=== PATIENT | female | born 1950 | race Caucasian/White ===

== ENCOUNTER → 2019-09-07 08:37 | Outpatient (BNVA) | payer MEDICARE, OTHER, SELFPAY | PROVIDERS: Family Provider Nurse Practitioner; PCP Nurse Practitioner; Visit Provider Nurse Practitioner | DX: E03.8 Other specified hypothyroidism (principal); E55.9 Vitamin D deficiency, unspecified | CPT/HCPCS: 80053; 82306; 84443 ==

== ENCOUNTER → 2020-10-02 08:28 | Outpatient (BNVA) | payer MEDICARE, OTHER, SELFPAY | PROVIDERS: Family Provider Nurse Practitioner; PCP Nurse Practitioner; Visit Provider Nurse Practitioner | DX: E55.9 Vitamin D deficiency, unspecified (principal); E03.8 Other specified hypothyroidism | CPT/HCPCS: 80053; 82306; 84443 ==

== ENCOUNTER → 2021-04-24 14:16 | Outpatient (BNVA) | payer MEDICARE, OTHER, SELFPAY | PROVIDERS: Family Provider Nurse Practitioner; PCP Nurse Practitioner; Visit Provider Nurse Practitioner | DX: E03.8 Other specified hypothyroidism (principal); E55.9 Vitamin D deficiency, unspecified | CPT/HCPCS: 80053; 82306; 82607; 84439; 84443; 84481; 85025 ==

== ENCOUNTER → 2021-10-29 15:35 | Outpatient (BNVA) | payer MEDICARE, OTHER, SELFPAY | PROVIDERS: Family Provider Nurse Practitioner; PCP Nurse Practitioner; Visit Provider Nurse Practitioner | DX: E03.8 Other specified hypothyroidism (principal); E55.9 Vitamin D deficiency, unspecified; Z12.39 Encounter for other screening for malignant neoplasm of breast | CPT/HCPCS: 80053; 80061; 84439; 84443; 84481 ==

== ENCOUNTER → 2021-11-20 15:05 | Outpatient (BNVA) | payer MEDICARE, OTHER, SELFPAY | PROVIDERS: Family Provider Nurse Practitioner; PCP Nurse Practitioner; Visit Provider Nurse Practitioner Family | DX: R39.9 Unspecified symptoms and signs involving the genitourinary system (principal); B37.3 Candidiasis of vulva and vagina; N89.8 Other specified noninflammatory disorders of vagina; R31.9 Hematuria, unspecified | CPT/HCPCS: 81000 ==

== ENCOUNTER → 2021-11-29 11:50 | Outpatient (BNVA) | payer MEDICARE, OTHER, SELFPAY | PROVIDERS: Family Provider Nurse Practitioner; PCP Nurse Practitioner; Visit Provider Nurse Practitioner | DX: R39.9 Unspecified symptoms and signs involving the genitourinary system (principal); N95.0 Postmenopausal bleeding; Z12.4 Encounter for screening for malignant neoplasm of cervix | CPT/HCPCS: 88175 ==

== ENCOUNTER 2022-01-14 11:39 | Outpatient (CLI) | payer MEDICARE, OTHER, SELFPAY ==
--- NOTE | 2022-01-14 12:00 | US_ITS ---
WS: [id number] TRANSABDOMINAL PELVIC AND TRANSVAGINAL PELVIC ULTRASOUND HISTORY: N95.0 - Postmenopausal bleeding COMPARISON: None available. Uterus: 11.4 cm x 8.8 cm x 7.9 cm. Enlarged anteverted uterus. Uterus is enlarged and heterogeneous w ith areas of shadowing from calcification along the anterior uterus. There are multiple ill-defined h eterogeneous masses of increased and decreased echogenicity and increased vascularity. The largest ma ss which is ill-defined measures 4.9 x 3.9 x 4.2 cm. Large central calcification. It is difficult to determine if this is solely from the myometrium or does extend into the endometrium. Endometrium: 4.2 cm. Endometrium is abnormal with loss of the normal junctional zone. The heterogeneo us area with shadowing along the anterior myometrium cannot be from the endometrium. Neither ovary is identified. No free fluid. No adnexal mass. US/US pelvic with transvaginal IMPRESSION: 1. Markedly abnormal appearance to the uterus and endometrium. There is a larg e mixed area of heterogeneity with shadowing and calcification involving a larg e portion of the uterus. This is obscuring the endometrium. This all may be rel ated to fibroids with degenerating calcification. As the underlying endometrium is obscured and also appears normal abnormal endometrial neoplasm is not exclu ded. Recommend evaluation by SENIOR RD ENGINEER for possible surgical removal of the uterus. E ndometrial neoplasm is not excluded. 2. Neither ovary identified.
== END 2022-01-14 11:40 | disposition home or self-care (01) ==
LOC: RAD 11:40
PROVIDERS: Family Provider Nurse Practitioner; PCP Nurse Practitioner; Visit Provider Nurse Practitioner
DX: N95.0 Postmenopausal bleeding (principal)
CPT/HCPCS: 76830; 76856

== ENCOUNTER 2022-01-20 08:00 | Emergency (ER) | payer MEDICARE, OTHER, SELFPAY ==
[2022-01-20 08:30] VITALS: BP 137/75; PULSE 79; RESP 14; TEMP 38.7; O2SAT 97; BMI 26.5
[2022-01-20 08:34] VITALS: BP 132/68; PULSE 78; O2SAT 94
--- NOTE | 2022-01-20 08:38 | W.ED.FEVER ---
HPI - Fever General: Chief Complaint: Fever Stated Complaint: Fever, Sick to stomach, spotting Time Seen by Provider: 01/20/22 08:35 Source: patient Mode of arrival: ambulatory Limitations: no limitations History of Present Illness: 71-year-old female presents to the ER today for a fever x16 hours. Patient reports the fever started last night and has continued overnight and gone up. Patient reports she has mild nausea and also a headache. Patient reports minimal body aches. She reports no other symptoms. Patient denies any congestion or runny nose, sore throat, abdominal pain, change in bowel or bladder habits. Patient denies any pain with urination. Patient denies any sick contacts. Patient does report she took a home COVID test yesterday and it was negative. Patient reports she has an appointment with an YARROW GATHERER this for follow-up on an abnormal ultrasound. Patient reports she is still having vaginal bleeding but that has been going on and that is what the YARROW GATHERER will be addressing. Review of Systems General: Reports: 10 or more systems reviewed and unremarkable except in HPI and below PFSH ED PFSH: Medical History Adult onset hypothyroidism Heart murmur Mammogram normal 2014 Vitamin D deficiency Surgical History History of colonoscopy 2016 had colon tear and colon resection History of partial surgical removal of colon 2016 Family History Mother Hypertension Father Heart disease Myocardial infarction Social History Smoking and tobacco status: never smoked Second hand smoke exposure: No Smoking risk assessment/counseling performed?: No Alcohol intake: current Alcohol intake frequency: 0-2 Drinks per Day Desire information about alcohol rehabilitation?: No Counseling given: No Desire information about substance/drug rehabilitation?: No Counseling given: No Adopted: No Caregiver/support person: No Lives independently: Yes Household members: spouse Housing: House Marital status: Number of children: 2 service: No Current occupational status: retired Current occupational exposures/hazards: No History of recent travel: No Current gender identity: Female Physical Exam Const: COMMON NORMALS: no acute distress, average body habitus, patient oriented x3, no limitations, healthy appearing, alert and well nourished Eye: COMMON NORMALS: conjunctivae normal CONJUNCTIVA: Yes conjunctivae normal Neck/C-Spine: COMMON NORMALS: full ROM and no lymphadenopathy Resp: COMMON NORMALS: normal respiratory effort, No retractions and clear to auscultation bilaterally EFFORT & INSPECTION: Yes able to speak in complete sentences AUSCULTATION: clear to auscultation bilaterally Cardio: COMMON NORMALS: regular rate, regular rhythm and No murmurs present (Cardio) RATE: regular rate RHYTHM: regular rhythm GI: COMMON NORMALS: Normal to inspection, nondistended, normoactive bowel sounds present, Soft to palpation, non-tender and no masses PALPATION: Yes Soft to palpation : COMMON NORMALS: Yes no CVA tenderness BLADDER/KIDNEY EXAM: Yes no CVA tenderness Back/Pelvis: COMMON NORMALS: no CVA tenderness and thoraco-lumbar ROM normal Extremity: COMMON NORMALS: normal to inspection and full ROM Neuro: COMMON NORMALS: patient oriented x3 SENSORIUM/ORIENTATION: Yes alert Psych: COMMON NORMALS: mental status grossly normal, Normal thought process present and cooperative THOUGHT PROCESS: Normal thought process present Skin: COMMON NORMALS: no rashes or lesions noted and no wounds GENERAL SKIN EXAM: no rashes or lesions noted Course ED course: 71-year-old female presents to the ER today for a fever x16 hours. Patient reports the fever started last night and has continued overnight and is higher this morning. Patient reports a headache and mild nausea associated. She denies any congestion, runny nose, sore throat, abdominal pain, change in bowel or bladder habits. Patient denies any known sick contacts. Patient did take a home COVID test however we will repeat that today in the ER. We will do labs to try to determine a source of infection. Patient had an abnormal ultrasound done 6 days ago and is following up with YARROW GATHERER on . Patient does report continued vaginal bleeding however this will be addressed on . Vital Signs: Vital signs: Vital Signs Temperature 101.6 F H 01/20/22 08:30 Pulse Rate 73 01/20/22 10:17 Respiratory Rate 14 01/20/22 08:30 Blood Pressure 116/63 01/20/22 10:17 Pulse Oximetry 95 01/20/22 10:17 [facility] 08[facility]34 MDM - Fever Medical Decision Making 71-year-old female presents to the ER today for a fever x16 hours. Patient reports the fever started last night and has continued overnight and is higher this morning. Patient reports a headache and mild nausea associated. She denies any congestion, runny nose, sore throat, abdominal pain, change in bowel or bladder habits. Patient denies any known sick contacts. Patient did take a home COVID test however we will repeat that today in the ER. We will do labs to try to determine a source of infection. Patient had an abnormal ultrasound done 6 days ago and is following up with YARROW GATHERER on . Patient does report continued vaginal bleeding however this will be addressed on . Patient's CBC is normal. CMP is abnormal, specifically the alk phos level. This is likely due to the abnormal findings on patient's recent pelvic ultrasound. Patient has an appointment with YARROW GATHERER on where this will be addressed. Patient's UA is abnormal. There is noted to be significant blood, as expected for patient's vaginal issues, but also infection is noted. Patient is nitrate positive. We will do Rocephin in the ER today given patient's fever. We will send patient home on Cipro. Patient should push clear fluids at this time. Alternate Tylenol and Motrin for fevers. Follow-up with PCP in 3 to 5 days if no improvement. Return to the ER with new or worsening symptoms. Patient verbalized understanding and was in agreement with the treatment plan. Lab Data : 01/20/22 08:58 01/20/22 08:58 Laboratory Results WBC 9.1 10^3/uL (4.0-10.0) 01/20/22 08:58 RBC 4.57 10^6/uL (4.1-5.3) 01/20/22 08:58 Hgb 13.3 g/dL (11.5-15.3) 01/20/22 08:58 Hct 41.0 % (37.0-47.0) 01/20/22 08:58 MCV 89.7 fl (81-99) 01/20/22 08:58 MCH 29.1 pg (28.0-34.0) 01/20/22 08:58 MCHC 32.4 g/dL (30.0-36.0) 01/20/22 08:58 RDW 12.7 % (12.1-15.1) 01/20/22 08:58 Plt Count 186 10^3/cmm (130-400) 01/20/22 08:58 MPV 11.6 fL (7.4-10.4) H 01/20/22 08:58 Neut % (Auto) 74.3 % 01/20/22 08:58 Lymph % (Auto) 18.2 % 01/20/22 08:58 [place] % (Auto) 6.6 % 01/20/22 08:58 Eos % (Auto) 0.1 % 01/20/22 08:58 Baso % (Auto) 0.4 % 01/20/22 08:58 Neut # (Auto) 6.71 10^3/uL (1.8-7.7) 01/20/22 08:58 Lymph # (Auto) 1.7 10^3/uL (0.8-4.8) 01/20/22 08:58 [place] # (Auto) 0.6 10^3/uL (0.2-0.9) 01/20/22 08:58 Eos # (Auto) 0.0 10^3/uL (0.0-0.8) 01/20/22 08:58 Baso # (Auto) 0.0 10^3/uL (0.0-0.1) 01/20/22 08:58 Nucleated RBC % (auto) 0 % 01/20/22 08:58 Nucleated RBCs # 0.0 /100WBC 01/20/22 08:58 Sodium 138 mmol/L (136-145) 01/20/22 08:58 Potassium 3.6 mmol/L (3.5-5.1) 01/20/22 08:58 Chloride 97 mmol/L (98-107) L 01/20/22 08:58 Carbon Dioxide 26 mmol/L (22-29) 01/20/22 08:58 Anion Gap 18.6 (5-19) 01/20/22 08:58 BUN 28 mg/dL (8-23) H 01/20/22 08:58 Creatinine 0.6 mg/dL (0.5-0.9) 01/20/22 08:58 GFR Calculation Not Reportable 01/20/22 08:58 Glucose 131 mg/dL (65-115) H 01/20/22 08:58 Calculated Osmolality 293 mOsm/kg (285-295) 01/20/22 08:58 Lactic Acid 1.5 mmol/L (0.5-2.2) 01/20/22 08:58 Calcium 9.3 mg/dL (8.5-10.5) 01/20/22 08:58 Total Bilirubin 0.5 mg/dL (0.15-1.2) 01/20/22 08:58 AST 20 U/L (0-32) 01/20/22 08:58 ALT 15 U/L (0-33) 01/20/22 08:58 Alkaline Phosphatase 209 IU/L (35-105) H 01/20/22 08:58 Total Protein 7.5 g/dL (6.6-8.7) 01/20/22 08:58 Albumin 4.8 g/dL (3.5-5.2) 01/20/22 08:58 Globulin 2.7 g/dL (1.3-4.6) 01/20/22 08:58 Urine Color Yellow (Yellow) 01/20/22 08:58 Urine Appearance Cloudy (CLEAR) 01/20/22 08:58 Urine pH 5 (5-7) 01/20/22 08:58 Ur Specific [place] 1.025 (1.005-1.030) 01/20/22 08:58 Urine Protein 3+ (Negative) H 01/20/22 08:58 Urine Glucose (UA) Norm (Normal) 01/20/22 08:58 Urine Ketones 3+ (Negative) H 01/20/22 08:58 Urine Blood 3+ (Negative) H 01/20/22 08:58 Urine Nitrate Positive (Negative) H 01/20/22 08:58 Urine Bilirubin Neg (Negative) 01/20/22 08:58 Urine Urobilinogen Norm mg/dL (Negative) 01/20/22 08:58 Ur Leukocyte Esterase 1+ (Negative) H 01/20/22 08:58 Urine RBC Too numerous to cnt /hpf (0-2) H 01/20/22 08:58 Urine WBC 40-55 /hpf (0-5) H 01/20/22 08:58 Ur Squamous Epith Cells 0-4 /hpf (0-5) H 01/20/22 08:58 Amorphous Sediment Not Reportable 01/20/22 08:58 Urine Bacteria 2+ /hpf (NONE) H 01/20/22 08:58 Urine Mucus Trace /hpf 01/20/22 08:58 SARS-CoV-2 Ag (Rapid) Negative (Negative) 01/20/22 08:50 Critical Care Time Critical Care Time: Critical Care Time: No Discharge Plan Discharge Patient Disposition: Home Clinical Impression: Acute UTI, Abnormal uterine bleeding (AUB) Condition: Stable Prescriptions: New Cipro 250 mg tablet 250 mg PO BID 5 Days Qty: 10 0RF No Action cholecalciferol (vitamin D3) [Vitamin D3] 25 mcg (1,000 unit) tablet 5,000 unit PO DAILY thyroid (pork) [[place] Thyroid] 15 mg tablet 15 mg PO DAILY Qty: 90 1RF Discharge Orders: Discharge ED (Routine); Ordered 01/20/22 Ordered By: Marilee Jeff Referrals: Pavel Gupta, ENVIRONMENTAL RESEARCH SCIENTIST-C [Primary Care Provider] - Discharge Diet: Usual diet Discharge Activity: Resume usual activity Patient Instructions: Opioid Safety Activity Restrictions/Additional Instructions: Push fluids. Take Cipro as prescribed. Alternate Tylenol Motrin for pain and fever. Follow-up with PCP in 3 to 5 days if no improvement. Return to the ER with new or worsening symptoms. Coding Level of Care Code ED Health Information Director for Que Fwdavid Exam Comprehensive
[2022-01-20] MEDS: acetaminophen 500 mg Tablet 1000 MG PO (09:07)
[2022-01-20 09:08] LABS: Basophils % 0.4 %; Eosinophils % 0.1 %; Hemoglobin 13.3 g/dL (11.5-15.3); Lymphocytes # 1.7 10^3/uL (0.8-4.8); Lymphocytes % 18.2 %; Mean Corpuscular HGB Conc 32.4 g/dL (30.0-36.0); Mean Corpuscular Hemoglobin 29.1 pg (28.0-34.0); Mean Corpuscular Volume 89.7 fl (81-99); Mean Platelet Volume 11.6 fL (7.4-10.4); Monocytes # 0.6 10^3/uL (0.2-0.9); Monocytes % 6.6 %; Neutrophils # 6.71 10^3/uL (1.8-7.7); Neutrophils % 74.3 %; Nucleated Red Blood Cells % 0 %; Platelet Count 186 10^3/cmm (130-400); Red Blood Count 4.57 10^6/uL (4.1-5.3); Red Cell Distribution Width 12.7 % (12.1-15.1); White Blood Count 9.1 10^3/uL (4.0-10.0)
[2022-01-20 09:28] LABS: Lactic Sepsis W/Reflex 1.5 mmol/L (0.5-2.2)
[2022-01-20 09:30] LABS: Alanine Aminotransferase 15 U/L (0-33); Albumin Level 4.8 g/dL (3.5-5.2); Alkaline Phosphatase 209 IU/L (35-105); Anion Gap 18.6 (5-19); Aspartate Amino Transferase 20 U/L (0-32); Blood Urea Nitrogen 28 mg/dL (8-23); Calcium 9.3 mg/dL (8.5-10.5); Carbon Dioxide 26 mmol/L (22-29); Chloride 97 mmol/L (98-107); Globulin 2.7 g/dL (1.3-4.6); Glucose 131 mg/dL (65-115); Osmolality Calculated 293 mOsm/kg (285-295); Potassium 3.6 mmol/L (3.5-5.1); Sodium 138 mmol/L (136-145); Total Bilirubin 0.5 mg/dL (0.15-1.2); Total Protein 7.5 g/dL (6.6-8.7)
[2022-01-20 09:32] LABS: Add Urine Culture? Yes; Add Urine Microscopic? YES; Bacteria Urine 2+ /hpf; Bilirubin Urine Neg (Negative); Blood Urine 3+ (Negative); Glucose Urine UA Norm (Normal); Ketones Urine 3+ (Negative); Leukocyte Esterase Urine 1+ (Negative); Mucus Urine TRACE /hpf; Nitrate Urine Positive (Negative); Protein Urine 3+ (Negative); RBC Urine TOO NUMEROUS TO CNT /hpf (0-2); Specific Gravity, Urine 1.025 (1.005-1.030); Squamous Epithelial Cell Urine 0-4 /hpf (0-5); Urine Appearance Cloudy (CLEAR); Urine Color Yellow (Yellow); Urobilinogen Urine Norm (Negative); WBC Urine 40-55 /hpf (0-5); pH Urine 5 (5-7)
[2022-01-20 09:45] LABS: SARS Covid-2 Antigen Negative (Negative)
[2022-01-20] MEDS: cefTRIAXone 1,000 MG in lidocaine 1% 2.1 ML 2.1 MG IM (10:10)
[2022-01-20 10:17] VITALS: BP 116/63; PULSE 73; O2SAT 95
== END 2022-01-20 10:18 | disposition home or self-care (01) ==
PROVIDERS: Emergency Provider Physician Assistant; PCP Nurse Practitioner
DX: N39.0 Urinary tract infection, site not specified (principal); N93.9 Abnormal uterine and vaginal bleeding, unspecified; Z20.822 Contact with and (suspected) exposure to COVID-19
CPT/HCPCS: 80053; 81001; 83605; 85025; 87086; 87426; 96372; 99284; J0696

== ENCOUNTER 2022-01-22 11:56 | Inpatient (IN) | payer MEDICARE, OTHER, SELFPAY ==
[2022-01-22] VITALS (17 sets, daily range): BP systolic 112–152; BP diastolic 48–74; PULSE 64–82; RESP 14–25; TEMP 36.8–38.2; O2SAT 91–97; BMI 26.5; BMI 25.6
--- NOTE | 2022-01-22 12:02 | PC.NURSE ---
while in lobby pt is a&ox4. pt is in nad. pt and state that confusion has began 3 days ago. pt breathing is nonlabored. rate and rhythm are wnl.
[2022-01-22 13:53] LABS: Basophils % 0.3 %; Eosinophils % 0.3 %; Hematocrit 38.5 % (37.0-47.0); Hemoglobin 12.8 g/dL (11.5-15.3); Lymphocytes # 1.9 10^3/uL (0.8-4.8); Lymphocytes % 17.5 %; Mean Corpuscular HGB Conc 33.2 g/dL (30.0-36.0); Mean Corpuscular Hemoglobin 29.6 pg (28.0-34.0); Mean Corpuscular Volume 89.1 fl (81-99); Monocytes # 0.5 10^3/uL (0.2-0.9); Monocytes % 4.4 %; Neutrophils # 8.26 10^3/uL (1.8-7.7); Neutrophils % 77.1 %; Nucleated Red Blood Cells % 0 %; Platelet Count 196 10^3/cmm (130-400); Red Blood Count 4.32 10^6/uL (4.1-5.3); Red Cell Distribution Width 12.1 % (12.1-15.1); White Blood Count 10.7 10^3/uL (4.0-10.0)
[2022-01-22 14:13] LABS: SARS Covid-2 Antigen Negative (Negative)
[2022-01-22 14:14] LABS: Alanine Aminotransferase 15 U/L (0-33); Albumin Level 4.2 g/dL (3.5-5.2); Alkaline Phosphatase 168 IU/L (35-105); Anion Gap 18.4 (5-19); Aspartate Amino Transferase 20 U/L (0-32); Blood Urea Nitrogen 20 mg/dL (8-23); Carbon Dioxide 23 mmol/L (22-29); Chloride 92 mmol/L (98-107); Globulin 2.7 g/dL (1.3-4.6); Glucose 114 mg/dL (65-115); Lipase 30 U/L (13-60); Osmolality Calculated 273 mOsm/kg (285-295); Potassium 3.4 mmol/L (3.5-5.1); Sodium 130 mmol/L (136-145); Total Bilirubin 0.4 mg/dL (0.15-1.2); Total Protein 6.9 g/dL (6.6-8.7)
--- NOTE | 2022-01-22 18:05 | W.ED.AMS ---
HPI - Altered Mental Status General: Chief Complaint: Altered Mental Status Stated Complaint: weakness, cant form words Time Seen by Provider: 01/22/22 16:26 Source: patient Mode of arrival: ambulatory Limitations: no limitations History of Present Illness: 71-year-old female recently diagnosed with UTI. She was started on Cipro. Despite this she continues to run fever and she is had increasing confusion with suprapubic discomfort and CVA tenderness. No vomiting or diarrhea. Patient herself admits she is having difficult time with tracking things and has been moderately confused. Cultures at this point shows multiple debbi nothing specific. Onset (ago): day(s) Severity: mild Associated symptoms: Deny auditory hallucinations, visual hallucinations, delusions, depression or homicidal ideation Review of Systems Const: Denies: fever(s), chills, body aches, change in appetite, fatigue or malaise ENMT: Denies: throat pain, ear or mastoid pain, nasal discharge or nasal congestion Card: Denies: chest pain, edema, dyspnea on exertion or orthopnea Resp: Denies: dyspnea, productive cough or non-productive cough GI: Denies: abdominal pain, nausea, vomiting, hematemesis, coffee ground emesis, diarrhea, constipation, bloating, hematochezia or melena : Denies: flank pain, difficulty voiding, dysuria, urinary frequency or urinary urgency Skin/Breast: Denies: rash or pruritus Psych: Denies: depression, visual hallucinations, auditory hallucinations or homicidal ideation [facility] ED PFSH: Medical History Adult onset hypothyroidism Heart murmur Mammogram normal 2015 Uterine fibroid Vitamin D deficiency Surgical History History of colonoscopy 2016 had colon tear and colon resection History of partial surgical removal of colon 2016 Family History Mother Hypertension Father Heart disease Myocardial infarction Social History Smoking and tobacco status: never smoked Second hand smoke exposure: No Smoking risk assessment/counseling performed?: No Alcohol intake: current Alcohol intake frequency: 0-2 Drinks per Day Desire information about alcohol rehabilitation?: No Counseling given: No Desire information about substance/drug rehabilitation?: No Counseling given: No Adopted: No Caregiver/support person: No Lives independently: Yes Household members: spouse Housing: House Marital status: Number of children: 2 service: No Current occupational status: retired Current occupational exposures/hazards: No History of recent travel: No Current gender identity: Female Physical Exam Const: GENERAL APPEARANCE: cooperative and comfortable ORIENTATION/CONSCIOUSNESS: Yes awake HENMT: COMMON NORMALS: normocephalic, atraumatic and hearing grossly normal bilaterally HEAD & SCALP: normocephalic and atraumatic MOUTH: Normal oral and palatal mucosa present, lip normal, tongue normal and moist mucous membranes abnormal THROAT: posterior oropharynx normal Eye: COMMON NORMALS: Equal, round and reactive pupils present, EOMs intact bilaterally, conjunctivae normal and no scleral icterus CONJUNCTIVA: Yes conjunctivae normal PUPIL: Yes Equal, round and reactive pupils present Neck/C-Spine: COMMON NORMALS: full ROM and no lymphadenopathy Lymph: LYMPHATIC: no lymphadenopathy noted Resp: COMMON NORMALS: normal respiratory effort, No retractions, No use of accessory muscles and clear to auscultation bilaterally AUSCULTATION: clear to auscultation bilaterally Cardio: COMMON NORMALS: No murmurs present (Cardio) RATE: tachycardic GI: COMMON NORMALS: Soft to palpation and No hepatosplenomegaly present AUSCULTATION: Yes normoactive bowel sounds PALPATION: Yes Soft to palpation, No Tenderness to palpation present (GI), No Guarding due to palpation present (GI) and Yes No hepatosplenomegaly present : BLADDER/KIDNEY EXAM: Yes CVA tenderness Back/Pelvis: GENERAL BACK: Yes CVA tenderness Psych: THOUGHT CONTENT: No delusions Course Vital Signs: Vital signs: Vital Signs Temperature 99.3 F 02/02/22 21:50 Pulse Rate 74 02/02/22 21:50 Respiratory Rate 16 02/02/22 21:50 Blood Pressure 111/63 02/02/22 21:50 Pulse Oximetry 93 02/02/22 21:50 Oxygen Delivery Me thod 02/02/22 20:15 Oxygen Flow Rate 4 02/02/22 20:00 MDM - Altered Mental Status Medical Decision Making Patient mildly confused and is not improving with ciprofloxacin as prescribed. She is actually worsening a little bit although her white count is normal she has more flank pain. She has a pending gynecologic examination. CT of the abdomen pelvis ordered renal scan to evaluate for obstructive neuropathy uropathy. He has been able to continue to urinate. Discussed with hospitalist will admit start Primaxin Medical Records I reviewed the patient's medical records. Lab Data I reviewed the patient's lab results. : 02/01/22 11:54 02/01/22 11:54 Radiology Impressions Abdomen/Pelvis CT 01/22/22 18:06 IMPRESSION: 1. Colonic diverticulosis without CT evidence of diverticulitis. 2. Previous distal colon resection with rectosigmoid anastomosis. 3. Prominent uterus containing partially calcified uterine fibroid or uterine mass measuring at least 7.2cm. 4. Retroperitoneal lymphadenopathy including 1.8 x 1.9 cm aortocaval lymph node. 5. Multiple bilateral noncalcified pulmonary nodules including 12 mm posterior right lower lobe nodule. Differential diagnosis includes inflammatory nodules or noncalcified granulomas versus metastatic disease. For patients at low risk (minimal or absent history of smoking and of other known risk factors), recommend CT Chest at 3-6 months, then consider CT Chest at 18-24 months. For patients at high risk (history of smoking or of other known risk factors), recommend CT Chest at 3-6 months, then CT Chest at 18-24 months (Reference: [place]). If patient has known history of cancer then Fleischner guidelines are not applicable. Follow-up per the patient's medical condition. COMMENTS: Consistent with the [place] [employer]'s Incidental Findings Committee white paper (J Am Elda Radiol 2018): Any incidental renal lesion less than 1 cm or classified as too small to characterize, or any incidental cystic renal lesion characterized as simple-appearing, is likely benign. No follow-up imaging is recommended for these lesions per consensus recommendations based on imaging criteria. REFERENCES: Joel Ko, et al. Guidelines for Management of Incidental Pulmonary Nodules Detected on CT Images: From the Fleischner Society 2017. Radiology. 2017;284(1):228-243. Head CT 01/25/22 16:52 Impression: Negative CT scan of the head Gallbladder Ultrasound 01/26/22 18:41 IMPRESSION: No acute sonographic findings. Chest X-Ray 01/28/22 12:52 IMPRESSION: 1. Mild cardiomegaly and pulmonary vascular congestion. 2. Trace left pleural effusion suspected. 3. Minimal bilateral hilar to lower lobe atelectasis versus minimal infiltrate. Lumbar Puncture Fluoroscopy 01/28/22 12:52 IMPRESSION: Uncomplicated lumbar puncture for CSF. CSF collected for analysis as requested. Chest CT 01/28/22 12:56 IMPRESSION: 1. Several prominent subcentimeter short axis mediastinal lymph nodes, nonspecific. 2. Multifocal pulmonary nodules throughout both lung [place] measuring up to 6.1 mm, concerning for diffuse metastatic disease. 3. Trace bilateral pleural effusions. Head MRI 01/29/22 10:27 IMPRESSION: 1. No evidence of restricted diffusion to suggest acute ischemia. 2. Mild small vessel changes with mild parenchymal volume loss. 3. No abnormal gadolinium enhancement. No evidence of enhancing intracranial metastatic disease. 4. No acute intracranial findings. Head/Neck CTA 01/30/22 11:42 IMPRESSION: No large vessel stenosis or occlusion. IMPRESSION: No stenosis or occlusion of the neck arteries. Multiple nodules in the visualized the upper lungs. Please refer to CT chest of the same date for details. REFERENCES: NASCET CRITERIA. The degree of internal carotid artery stenosis is based on NASCET criteria. Normal is no stenosis. Mild is less than 50% stenosis. Moderate is 50-69% stenosis. Severe is 70% to 99% stenosis. Total occlusion is no detectable patent lumen. Laboratory Results WBC 7.1 10^3/uL (4.0-10.0) 01/23/22 05:49 RBC 3.81 10^6/uL (4.1-5.3) L 01/23/22 05:49 Hgb 11.2 g/dL (11.5-15.3) L 01/23/22 05:49 Hct 34.1 % (37.0-47.0) L 01/23/22 05:49 MCV 89.5 fl (81-99) 01/23/22 05:49 MCH 29.4 pg (28.0-34.0) 01/23/22 05:49 MCHC 32.8 g/dL (30.0-36.0) 01/23/22 05:49 RDW 12.3 % (12.1-15.1) 01/23/22 05:49 Plt Count 157 10^3/cmm (130-400) 01/23/22 05:49 MPV 11.7 fL (7.4-10.4) H 01/23/22 05:49 Neut % (Auto) 61.1 % 01/23/22 05:49 Lymph % (Auto) 24.5 % 01/23/22 05:49 [place] % (Auto) 13.2 % 01/23/22 05:49 Eos % (Auto) 0.3 % 01/23/22 05:49 Baso % (Auto) 0.6 % 01/23/22 05:49 Neut # (Auto) 4.37 10^3/uL (1.8-7.7) 01/23/22 05:49 Lymph # (Auto) 1.8 10^3/uL (0.8-4.8) 01/23/22 05:49 [place] # (Auto) 0.9 10^3/uL (0.2-0.9) 01/23/22 05:49 Eos # (Auto) 0.0 10^3/uL (0.0-0.8) 01/23/22 05:49 Baso # (Auto) 0.0 10^3/uL (0.0-0.1) 01/23/22 05:49 Nucleated RBC % (auto) 0 % 01/23/22 05:49 Nucleated RBCs # 0.0 /100WBC 01/23/22 05:49 Sodium 131 mmol/L (136-145) L 01/23/22 05:49 Potassium 3.6 mmol/L (3.5-5.1) 01/23/22 05:49 Chloride 98 mmol/L (98-107) 01/23/22 05:49 Carbon Dioxide 24 mmol/L (22-29) 01/23/22 05:49 Anion Gap 12.6 (5-19) 01/23/22 05:49 BUN 16 mg/dL (8-23) 01/23/22 05:49 Creatinine 0.4 mg/dL (0.5-0.9) L 01/23/22 05:49 GFR Calculation Not Reportable 01/23/22 05:49 Glucose 141 mg/dL (65-115) H 01/23/22 05:49 Calculated Osmolality 276 mOsm/kg (285-295) L 01/23/22 05:49 Calcium 8.1 mg/dL (8.5-10.5) L 01/23/22 05:49 Magnesium 2.1 mg/dL (1.7-2.3) 01/23/22 05:49 Total Bilirubin 0.4 mg/dL (0.15-1.2) 01/23/22 05:49 AST 22 U/L (0-32) 01/23/22 05:49 ALT 12 U/L (0-33) 01/23/22 05:49 Alkaline Phosphatase 135 IU/L (35-105) H 01/23/22 05:49 Total Protein 5.9 g/dL (6.6-8.7) L 01/23/22 05:49 Albumin 3.7 g/dL (3.5-5.2) 01/23/22 05:49 Globulin 2.2 g/dL (1.3-4.6) 01/23/22 05:49 Lipase 30 U/L (13-60) 01/22/22 13:41 Urine Color Yellow (Yellow) 01/22/22 18:35 Urine Appearance Clear (CLEAR) 01/22/22 18:35 Urine pH 5 (5-7) 01/22/22 18:35 Ur Specific [place] 1.025 (1.005-1.030) 01/22/22 18:35 Urine Protein Neg (Negative) 01/22/22 18:35 Urine Glucose (UA) Norm (Normal) 01/22/22 18:35 Urine Ketones 2+ (Negative) H 01/22/22 18:35 Urine Blood 3+ (Negative) H 01/22/22 18:35 Urine Nitrate Negative (Negative) 01/22/22 18:35 Urine Bilirubin Neg (Negative) 01/22/22 18:35 Urine Urobilinogen Norm mg/dL (Negative) 01/22/22 18:35 Ur Leukocyte Esterase Negative (Negative) 01/22/22 18:35 Urine RBC 15-25 /hpf (0-2) H 01/22/22 18:35 Urine WBC 0-4 /hpf (0-5) H 01/22/22 18:35 Ur Squamous Epith Cells 0-4 /hpf (0-5) H 01/22/22 18:35 Amorphous Sediment Not Reportable 01/22/22 18:35 Urine Bacteria Trace /hpf (NONE) 01/22/22 18:35 Urine Mucus 3+ /hpf 01/22/22 18:35 SARS-CoV-2 Ag (Rapid) Negative (Negative) 01/22/22 13:41 Discharge Plan Discharge Patient Disposition: Admitted As Inpatient Admit Provider: Dayne Woodward Clinical Impression: Cystitis, Uterine mass, Retroperitoneal lymphadenopathy, Metabolic encephalopathy, Abnormal uterine bleeding Condition: Stable Coding Level of Care Code ED [employer] Press Operator for Que [place]
--- NOTE | 2022-01-22 18:06 | CTR_ITS ---
PROCEDURE INFORMATION: Exam: CT Abdomen And Pelvis Without Contrast Exam date and time: 01/22/2022 7:20 PM Age: 71 years old Clinical indication: Abdominal pain; Prior surgery; Surgery date: 6+ months; Surgery type: 12 inches of colon removed--- due to diverticulitis; Additional info: Flank pain TECHNIQUE: Imaging protocol: Computed tomography of the abdomen and pelvis without contrast. Radiation optimization: All CT scans at this facility use at least one of these dose optimization techniques: automated exposure control; mA and/or kV adjustment per patient size (includes targeted exams where dose is matched to clinical indication); or iterative reconstruction. COMPARISON: US pelvic with transvaginal 01/14/2022 11:57 AM RADIATION DOSE METRICS: Total DLP (mGy-cm): 424.73 FINDINGS: Lungs: Multiple bilateral noncalcified pulmonary nodules including 12 mm posterior right lower lobe nodule. Liver: No acute abnormality on noncontrast imaging. Gallbladder and bile ducts: No acute abnormality. No calcified stones. No ductal dilation. Pancreas: No acute abnormality. No ductal dilation. Spleen: No acute abnormality. Adrenal glands: No acute abnormality. No mass. Kidneys and ureters: A couple incidental small simple appearing right renal cysts measuring up to 2 cm. No renal or ureteral calculi. No hydronephrosis or hydroureter. No renal or ureteral calculi. Stomach and bowel: No significant or disproportionate large or small bowel distention. Colonic diverticulosis without CT evidence of diverticulitis. Previous distal colon resection with rectosigmoid anastomosis. Appendix: Appendix is absent with tiny pericecal metallic clips. Intraperitoneal space: No significant fluid collection. No free air. Vasculature: Atherosclerotic vascular calcification. No aortic aneurysm. Lymph nodes: Retroperitoneal lymphadenopathy including 1.8 x 1.9 cm aortocaval lymph node. Urinary bladder: Nondistended decompressed urinary bladder. Reproductive: Prominent uterus containing partially calcified uterine fibroid or uterine mass measuring at least 7.2cm. Bones/joints: No acute osseous abnormality. No dislocation. Soft tissues: Small fat containing umbilical hernia. CT/CT kidney stone [id number] IMPRESSION: 1. Colonic diverticulosis without CT evidence of diverticulitis. 2. Previous distal colon resection with rectosigmoid anastomosis. 3. Prominent uterus containing partially calcified uterine fibroid or uterine mass measuring at least 7.2cm. 4. Retroperitoneal lymphadenopathy including 1.8 x 1.9 cm aortocaval lymph node. 5. Multiple bilateral noncalcified pulmonary nodules including 12 mm posterior right lower lobe nodule. Differential diagnosis includes inflammatory nodules or noncalcified granulomas versus metastatic disease. For patients at low risk (minimal or absent history of smoking and of other known risk factors), recommend CT Chest at 3-6 months, then consider CT Chest at 18-24 months. For patients at high risk (history of smoking or of other known risk factors), recommend CT Chest at 3-6 months, then CT Chest at 18-24 months (Reference: Joel). If patient has known history of cancer then Fleischner guidelines are not applicable. Follow-up per the patient's medical condition. COMMENTS: Consistent with the [employer]'s Incidental Findings Committee white paper (J Am Elda Radiol 2018): Any incidental renal lesion less than 1 cm or classified as too small to characterize, or any incidental cystic renal lesion characterized as simple-appearing, is likely benign. No follow-up imaging is recommended for these lesions per consensus recommendations based on imaging criteria. REFERENCES: Joel Ko, et al. Guidelines for Management of Incidental Pulmonary Nodules Detected on CT Images: From the Fleischner Society 2017. Radiology. 2017;284(1):228-243.
[2022-01-22] MEDS: cefTRIAXone 1,000 MG in sodium chloride 0.9% (plus) 50 ML 100 MG IV (19:00)
[2022-01-22] MEDS: fentaNYL 50 mcg/mL INJ 2mL IVP ×2 (19:03→22:39)
[2022-01-22] MEDS: acetaminophen 500 mg Tablet 1000 MG PO (19:04)
[2022-01-22 19:10] LABS: Bilirubin Urine Neg (Negative); Blood Urine 3+ (Negative); Glucose Urine UA Norm (Normal); Ketones Urine 2+ (Negative); Leukocyte Esterase Urine Negative (Negative); Nitrate Urine Negative (Negative); Protein Urine Neg (Negative); Specific Gravity, Urine 1.025 (1.005-1.030); Urine Appearance Clear (CLEAR); Urine Color Yellow (Yellow); Urobilinogen Urine Norm (Negative); pH Urine 5 (5-7)
[2022-01-22 19:11] LABS: Add Urine Culture? No; Add Urine Microscopic? YES; Bacteria Urine TRACE /hpf; Mucus Urine 3+ /hpf; RBC Urine 15-25 /hpf (0-2); Squamous Epithelial Cell Urine 0-4 /hpf (0-5); WBC Urine 0-4 /hpf (0-5)
--- NOTE | 2022-01-22 20:09 | P.HP_ITS ---
Providers/Chief Complaint Primary Care Provider: RELL Godoy Chief Complaint: weakness, cant form words History of Present Illness Pleasant 71-year-old lady returns after earlier visit to ER on Friday night at which time was diagnosed with urinary tract infection, started on ciprofloxacin, but has had persistent symptoms with lower abdominal discomfort, flank discomfort, urinary frequency, in ER noted with low-grade fever, 100.7, cytosis 10.7. UA with 15-25 RBC, 0-4 WBC, trace bacteria, with concern for ongoing urinary tract infection despite treatment with ciprofloxacin, possible complicated infection she is assessed with CT abdomen pelvis, results are pending. Antibiotic was broadened with Primaxin in ER. She also reports history of fibroids for which she is supposed to be seeing gynecology here on . Reports episodes of vaginal bleeding. Review of Systems Const: Reports: fever(s) and malaise; Denies: chills or body aches Eyes: Denies: change in vision, eye discomfort or eye redness ENMT: Denies: throat pain, oral sores or ear or mastoid pain Card: Denies: chest pain, edema, pre-syncope or dyspnea on exertion Resp: Denies: dyspnea, productive cough, change in phlegm color or hemoptysis GI: Reports: abdominal pain; Denies: nausea, vomiting, diarrhea, constipation, hematochezia or melena : Reports: flank pain and urinary frequency; Denies: hematuria Musc: Denies: back pain, joint swelling or joint redness Skin/Breast: Denies: rash or new lesions Neuro: Denies: headache(s), numbness in extremities, weakness in extremities, dizziness, confusion or seizure-like activity Endo: Denies: polyuria or polydipsia Bryan/Lymph: Denies: easy bleeding or tender lymph nodes All/Imm: Denies: urticaria or tongue swelling Medications/Allergies Home Medications Medication Instructions Recorded Confirmed Last Taken Type cholecalciferol (vitamin D3) 25 5,000 unit PO DAILY 09/07/19 01/22/22 01/22/22 History mcg (1,000 unit) tablet (Vitamin D3) thyroid (pork) 15 mg tablet 15 mg PO DAILY #90 tabs 10/29/21 01/22/22 01/22/22 Rx ([place] Thyroid) ciprofloxacin HCl 250 mg tablet 250 mg PO BID 5 days #10 tabs 07/31/22 08/02/22 08/02/22 Rx (Cipro) Whole Food Multi Vitamin Liq. 30 ml PO DAILY 01/22/22 01/22/22 01/22/22 History Allergies Allergy/AdvReac Type Severity Reaction Status Date / Time Penicillins Allergy Rash Verified 01/22/22 17:30 PFSH Acute PFSH: Medical History Adult onset hypothyroidism Heart murmur Mammogram normal 2014 Uterine fibroid Vitamin D deficiency Surgical History History of colonoscopy 2016 had colon tear and colon resection History of partial surgical removal of colon 2016 Family History Mother Hypertension Father Heart disease Myocardial infarction Social History Smoking and tobacco status: never smoked Second hand smoke exposure: No Smoking risk assessment/counseling performed?: No Alcohol intake: current Alcohol intake frequency: 0-2 Drinks per Day Desire information about alcohol rehabilitation?: No Counseling given: No Desire information about substance/drug rehabilitation?: No Counseling given: No Adopted: No Caregiver/support person: No Lives independently: Yes Household members: spouse Housing: House Marital status: Number of children: 2 service: No Current occupational status: retired Current occupational exposures/hazards: No History of recent travel: No Current gender identity: Female Vitals/I&O/Wt Last Vital Signs Temp 100.7 F H 01/22/22 12:24 Pulse 79 01/22/22 19:00 Resp 16 01/22/22 19:03 BP 152/66 01/22/22 19:00 Pulse Ox 96 01/22/22 19:00 Weight last 48 hrs Weight 65.771 kg Physical Exam Narrative: accompanies her at bedside Const: COMMON NORMALS: patient oriented x3 and alert GENERAL APPEARANCE: cooperative ORIENTATION/CONSCIOUSNESS: Yes awake HENMT: COMMON NORMALS: oropharynx normal Neck/C-Spine: COMMON NORMALS: no JVD Resp: COMMON NORMALS: normal respiratory effort and clear to auscultation bilaterally AUSCULTATION: clear to auscultation bilaterally Cardio: COMMON NORMALS: no JVD, regular rhythm, S1 normal heart sound present, S2 normal heart sound present and No murmurs present (Cardio) RHYTHM: regular rhythm HEART SOUNDS: S1 normal heart sound present and S2 normal heart sound present GI: COMMON NORMALS: Normal to inspection, nondistended, normoactive bowel sounds present and Soft to palpation PALPATION: Yes Soft to palpation and Yes Tenderness to palpation present (GI) Details: LLQ : OTHER: L CVA tenderness Extremity: COMMON NORMALS: no joint enlargement and no pedal edema Neuro: COMMON NORMALS: patient oriented x3 and moves all extremities SENSORIUM/ORIENTATION: Yes alert Skin: COMMON NORMALS: no rashes or lesions noted GENERAL SKIN EXAM: no rashes or lesions noted Data : 01/22/22 13:41 01/22/22 13:41 Micro: Microbiology 01/22/22 17:31 Blood Culture - Preliminary Blood SPECIMEN COLLECTED 01/22/22 17:34 Blood Culture - Preliminary Blood SPECIMEN COLLECTED A&P Assessment and plan (1) Acute UTI: Antibiotic broadened to Primaxin due to lack response to ciprofloxacin. Continue. CT abdomen pelvis is pending for possible obstructive uropathy/complicated UTI, or other intra-abdominal issues. Follow-up blood culture, urine culture. Status: Acute (2) Abnormal uterine bleeding (AUB): Pending outpatient gynecologic evaluation. Status: Acute Plan Hypokalemia: Replace. Check magnesium. Uterine fibroids Hypothyroidism Attestations Medical Necessity Statement*: Place in observation for assessment of management of nonresolving urinary tract infection despite outpatient treatment. Coding Level of Care Code Acute Nougat Cutter Machine for [facility] Fwd Diagnoses Acute UTI N39.0 Abnormal uterine bleeding (AUB) N93.9
[2022-01-22] MEDS: potassium chloride ER 20 mEq Tablet PO (23:34)
[2022-01-22] MEDS: sodium chloride 0.9% 1,000 ML 999 ML IV (23:34)
[2022-01-23] VITALS (7 sets, daily range): BP systolic 129–181; BP diastolic 66–84; PULSE 61–84; RESP 16–19; TEMP 36.4–37.8; O2SAT 91–96
[2022-01-23] MEDS: D5-NS 0.45% + KCL 20 mEq 20 MEQ/1,000 ML BAG 150 MEQ IV ×3 (02:27→21:14)
[2022-01-23] MEDS: acetaminophen 325 mg Tablet 650 MG PO ×2 (03:45→16:54)
--- NOTE | 2022-01-23 04:38 | PC.NURSE ---
i reported high temp 100.1 to nurse
[2022-01-23 06:03] LABS: Basophils % 0.6 %; Eosinophils % 0.3 %; Hematocrit 34.1 % (37.0-47.0); Hemoglobin 11.2 g/dL (11.5-15.3); Lymphocytes # 1.8 10^3/uL (0.8-4.8); Lymphocytes % 24.5 %; Mean Corpuscular HGB Conc 32.8 g/dL (30.0-36.0); Mean Corpuscular Hemoglobin 29.4 pg (28.0-34.0); Mean Corpuscular Volume 89.5 fl (81-99); Mean Platelet Volume 11.7 fL (7.4-10.4); Monocytes # 0.9 10^3/uL (0.2-0.9); Monocytes % 13.2 %; Neutrophils # 4.37 10^3/uL (1.8-7.7); Neutrophils % 61.1 %; Nucleated Red Blood Cells % 0 %; Platelet Count 157 10^3/cmm (130-400); Red Blood Count 3.81 10^6/uL (4.1-5.3); Red Cell Distribution Width 12.3 % (12.1-15.1); White Blood Count 7.1 10^3/uL (4.0-10.0)
[2022-01-23 06:41] LABS: Alanine Aminotransferase 12 U/L (0-33); Albumin Level 3.7 g/dL (3.5-5.2); Alkaline Phosphatase 135 IU/L (35-105); Blood Urea Nitrogen 16 mg/dL (8-23); Calcium 8.1 mg/dL (8.5-10.5); Carbon Dioxide 24 mmol/L (22-29); Chloride 98 mmol/L (98-107); Globulin 2.2 g/dL (1.3-4.6); Glucose 141 mg/dL (65-115); Magnesium 2.1 mg/dL (1.7-2.3); Osmolality Calculated 276 mOsm/kg (285-295); Sodium 131 mmol/L (136-145); Total Bilirubin 0.4 mg/dL (0.15-1.2); Total Protein 5.9 g/dL (6.6-8.7)
[2022-01-23 06:42] LABS: Anion Gap 12.6 (5-19); Aspartate Amino Transferase 22 U/L (0-32); Potassium 3.6 mmol/L (3.5-5.1)
[2022-01-23] MEDS: thyroid 60 mg Tablet 15 MG PO (09:13)
--- NOTE | 2022-01-23 10:30 | PC.CHAP ---
Pastoral Care Encounter/Spiritual Assessment Type of Contact [] Declined mental health orderly visit [] Patient/Family/Request visit [] Outpatient visit [] Follow-up visit [] Physician referral [] Code/Alert [x] Routine visit [] Staff referral [] Actively dying [] Patient sleeping [] Family support [] [] Out of room [] Palliative care [] [] Receiving care in room [] Pre-surgical visit [] Trauma [] Long length of stay [] ICU visit [] Other: Relational/Emotional Strength [x] Patient feels connected with others/family/visitors/staff [] Distress [] Loneliness/isolation [] Abandonment Spirituality of Patient x[] Person of Alanis [] Attends Shinto of their Alanis [x] Believes in Prayer [] Reads Bible or Muslim materials [] There are Spiritual issues to be addressed Shovel Operator Interventions x[] Prayer [x] Active listening [] Non-anxious presence [x] Spiritual/emotional support [] Crisis/trauma care [] Spiritual counseling [] Bereavement support [] Provided bereavement packet [] Provided Bible/devotional materials [] Provided toy/stuffed animal, coloring book to patient or family member [] Provided Communion [] Anointing/[place] [] Salvation [] Completed spiritual assessment [] Other: Impact on Illness or Injury [] Angry [] Fearful [] Anxious [] Often cries [] Exhaustion [] Unable to work [] Unable to attend baptist [] Unable to walk/stand [] Unable to read [] Unable to drive [] Unable to eat/drink [] Unable to sleep [] Unable to be with family [] Patient intubated [] Other: Summary Time spent with patient 10 min
--- NOTE | 2022-01-23 22:05 | PM.PN ---
Subjective Subjective: She is feeling close to the same, slightly better, still some tenderness in the lower abdomen which persists. Consideration was given to return home in case of no further fevers, however, during the day noted to have again some mild on and off confusion, although fevers have not returned. Due this concern did not feel ready to return home. Vitals/I&O/Wt Last Vital Signs Temp 98.0 F 01/23/22 19:58 Pulse 82 01/23/22 19:58 Resp 18 01/23/22 19:58 BP 152/77 01/23/22 19:58 Pulse Ox 96 01/23/22 19:58 O2 Del Method 01/22/22 23:12 01/23/22 01/23/22 01/23/22 06:59 14:59 22:59 Intake Total 1200 / 1200 1118 / 1118 1005 / 2123 Balance 1200 / 1200 1118 / 1118 1005 / 2123 Weight last 48 hrs Weight 63.616 kg Weight 65.771 kg Physical Exam Narrative: and son at bedside Const: COMMON NORMALS: patient oriented x3 and alert GENERAL APPEARANCE: cooperative ORIENTATION/CONSCIOUSNESS: Yes awake HENMT: COMMON NORMALS: oropharynx normal Neck/C-Spine: COMMON NORMALS: no JVD Resp: COMMON NORMALS: normal respiratory effort and clear to auscultation bilaterally AUSCULTATION: clear to auscultation bilaterally Cardio: COMMON NORMALS: no JVD, regular rhythm, S1 normal heart sound present, S2 normal heart sound present and No murmurs present (Cardio) RHYTHM: regular rhythm HEART SOUNDS: S1 normal heart sound present and S2 normal heart sound present GI: COMMON NORMALS: Normal to inspection, nondistended, normoactive bowel sounds present and Soft to palpation PALPATION: Yes Soft to palpation and Yes Tenderness to palpation present (GI) Extremity: COMMON NORMALS: no joint enlargement and no pedal edema Neuro: COMMON NORMALS: patient oriented x3 and moves all extremities SENSORIUM/ORIENTATION: Yes alert Skin: COMMON NORMALS: no rashes or lesions noted GENERAL SKIN EXAM: no rashes or lesions noted Data : 01/23/22 05:49 01/23/22 05:49 Micro: Microbiology 01/22/22 17:34 Blood Culture - Preliminary Blood NEGATIVE TO DATE 01/22/22 17:31 Blood Culture - Preliminary Blood NEGATIVE TO DATE A&P Assessment and plan (1) Acute encephalopathy: Today she is awake and alert, I did not appreciate confusion, but on and off confusion reported noted by her . Concerned about returning home due to ongoing encephalopathy. Encephalopathy suspected metabolic secondary to infection, urinary tract infection. However, with concerning findings on CT abdomen pelvis with uterine fibroid versus possible mass, with retroperitoneal lymphadenopathy, also with lung nodules, concern is for possible metastatic malignancy. In case of persistent symptoms or if confirmation of malignancy, will need additional assessment for possible SAMPLE COORDINATOR metastatic disease. Status: Acute (2) Acute UTI: Continue Primaxin. Follow-up urine culture. No obstructive uropathy noted on CT. Status: Acute (3) Abnormal uterine bleeding (AUB): Pending outpatient gynecologic evaluation. Status: Acute (4) Uterine mass: Fibroid versus malignancy. Discussed with her and family.. She has an appointment for tomorrow morning for 9 AM schedule with gynecology, although has not felt well enough yet to discharge due to episodes of encephalopathy. In case improves by tomorrow consideration of discharge then, otherwise appointment would need to be rescheduled if a closer date can be obtained or consideration of whether consultation could be obtained while she is here. She states she had to wait 6 weeks for appointment. Status: Acute (5) Retroperitoneal lymphadenopathy: Discussed with her and family as above. Status: Acute (6) Lung nodules: Discussed with her and family as above, with concern for possibility of metastatic disease. Will need follow-up. Status: Acute Plan Hypokalemia: Replaced. Normal magnesium. Hypothyroidism Attestations Medical Necessity Statement*: Continue admission for assessment and management of acute encephalopathy, UTI Coding Level of Care Code Acute Knitting Machine Tender for [facility] Fwd Diagnoses Acute encephalopathy G93.40 Acute UTI N39.0 Abnormal uterine bleeding (AUB) N93.9 Uterine mass N85.8 Retroperitoneal lymphadenopathy R59.0 Lung nodules R91.8
[2022-01-24] MEDS: acetaminophen 325 mg Tablet 650 MG PO ×2 (01:47→08:37)
[2022-01-24 04:00] VITALS: BP 162/89; PULSE 77; RESP 18; TEMP 37.2; O2SAT 94
[2022-01-24 05:58] LABS: Basophils % 0.4 %; Eosinophils % 0.1 %; Hematocrit 35.7 % (37.0-47.0); Lymphocytes # 1.9 10^3/uL (0.8-4.8); Lymphocytes % 27.2 %; Mean Corpuscular HGB Conc 33.6 g/dL (30.0-36.0); Mean Corpuscular Hemoglobin 29.3 pg (28.0-34.0); Mean Corpuscular Volume 87.3 fl (81-99); Mean Platelet Volume 12.1 fL (7.4-10.4); Monocytes # 0.9 10^3/uL (0.2-0.9); Monocytes % 13.3 %; Neutrophils # 4.12 10^3/uL (1.8-7.7); Neutrophils % 58.6 %; Nucleated Red Blood Cells % 0 %; Platelet Count 172 10^3/cmm (130-400); Red Blood Count 4.09 10^6/uL (4.1-5.3); Red Cell Distribution Width 12.1 % (12.1-15.1); White Blood Count 7.1 10^3/uL (4.0-10.0)
[2022-01-24 06:29] LABS: Alanine Aminotransferase 14 U/L (0-33); Albumin Level 4.1 g/dL (3.5-5.2); Alkaline Phosphatase 146 IU/L (35-105); Anion Gap 14.6 (5-19); Aspartate Amino Transferase 18 U/L (0-32); Blood Urea Nitrogen 9 mg/dL (8-23); Calcium 8.9 mg/dL (8.5-10.5); Carbon Dioxide 25 mmol/L (22-29); Chloride 102 mmol/L (98-107); Globulin 2.3 g/dL (1.3-4.6); Glucose 114 mg/dL (65-115); Osmolality Calculated 286 mOsm/kg (285-295); Potassium 3.6 mmol/L (3.5-5.1); Sodium 138 mmol/L (136-145); Total Bilirubin 0.5 mg/dL (0.15-1.2); Total Protein 6.4 g/dL (6.6-8.7)
[2022-01-24] MEDS: D5-NS 0.45% + KCL 20 mEq 20 MEQ/1,000 ML BAG 150 MEQ IV (06:30)
[2022-01-24 08:00] VITALS: BP 173/84; PULSE 82; RESP 17; TEMP 37.4; O2SAT 97
[2022-01-24] MEDS: thyroid 60 mg Tablet 15 MG PO (08:25)
--- NOTE | 2022-01-24 10:34 | PC.CHAP ---
Pastoral Care Encounter/Spiritual Assessment Type of Contact [] Declined ssis architect visit [] Patient/Family/Request visit [] Outpatient visit [] Follow-up visit [] Physician referral [] Code/Alert [x] Routine visit [] Staff referral [] Actively dying [] Patient sleeping [] Family support [] [] Out of room [] Palliative care [] [x] Receiving care in room [] Pre-surgical visit [] Trauma [x] Long length of stay [] ICU visit [] Other: Relational/Emotional Strength [x] Patient feels connected with others/family/visitors/staff [] Distress [] Loneliness/isolation [] Abandonment Spirituality of Patient [] Person of Alanis [] Attends Religious of their Alanis [] Believes in Prayer [] Reads Bible or Muslim materials [] There are Spiritual issues to be addressed Farmworker Egg Producing Farm Interventions [] Prayer [] Active listening [] Non-anxious presence [] Spiritual/emotional support [] Crisis/trauma care [] Spiritual counseling [] Bereavement support [] Provided bereavement packet [] Provided Bible/devotional materials [] Provided toy/stuffed animal, coloring book to patient or family member [] Provided Communion [] Anointing/[place] [] Salvation [] Completed spiritual assessment [] Other: Impact on Illness or Injury [] Angry [] Fearful [] Anxious [] Often cries [] Exhaustion [] Unable to work [] Unable to attend mormonism [] Unable to walk/stand [] Unable to read [] Unable to drive [] Unable to eat/drink [] Unable to sleep [] Unable to be with family [] Patient intubated [] Other: Summary unable to communicate under staff care Time spent with patient 5 mins
[2022-01-24 12:00] VITALS: BP 168/83; PULSE 87; RESP 18; TEMP 37.6; O2SAT 97
[2022-01-24 15:43] VITALS: BP 167/90; PULSE 93; RESP 16; TEMP 39.4; O2SAT 97
[2022-01-24 19:23] VITALS: BP 162/98; PULSE 110; RESP 18; O2SAT 95
[2022-01-24 20:00] VITALS: BP 147/92; PULSE 116; RESP 18; TEMP 37.7; O2SAT 94
--- NOTE | 2022-01-24 20:16 | PC.NURSE ---
i reported high temp 99.9 and high pulse 116 to nurse
--- NOTE | 2022-01-24 20:53 | P.PN_ITS ---
Subjective Subjective: This morning she was feeling better, lower abdominal symptoms have been improving. Confusion is better. Did well until again in the afternoon spiking a high fever 103 Fahrenheit. Denies any new symptoms at the time. Vitals/I&O/Wt Last Vital Signs Temp 99.9 F H 01/24/22 20:00 Pulse 116 H 01/24/22 20:00 Resp 18 01/24/22 20:00 BP 147/92 01/24/22 20:00 Pulse Ox 94 01/24/22 20:00 O2 Del Method 01/24/22 19:23 01/24/22 01/24/22 01/24/22 06:59 14:59 22:59 Intake Total 1150 / 3373 1600 / 1600 100 / 1700 Balance 1150 / 3373 1600 / 1600 100 / 1700 Weight last 48 hrs Weight 63.616 kg Physical Exam Narrative: and son at bedside Const: COMMON NORMALS: patient oriented x3 and alert GENERAL APPEARANCE: cooperative ORIENTATION/CONSCIOUSNESS: Yes awake OTHER: Gets off trail, and takes her a while to formulate her thoughts. HENMT: COMMON NORMALS: oropharynx normal Neck/C-Spine: COMMON NORMALS: no JVD Resp: COMMON NORMALS: normal respiratory effort and clear to auscultation bilaterally AUSCULTATION: clear to auscultation bilaterally Cardio: COMMON NORMALS: no JVD, regular rhythm, S1 normal heart sound present, S2 normal heart sound present and No murmurs present (Cardio) RHYTHM: regular rhythm HEART SOUNDS: S1 normal heart sound present and S2 normal heart sound present GI: COMMON NORMALS: Normal to inspection, nondistended, normoactive bowel so unds present, Soft to palpation and non-tender PALPATION: Yes Soft to pal pation Extremity: COMMON NORMALS: no joint enlargement and no pedal edema Neuro: COMMON NORMALS: patient oriented x3 and moves all extremities SENSORIUM/ORIENTATION: Yes alert Skin: COMMON NORMALS: no rashes or lesions noted GENERAL SKIN EXAM: no rashes or lesions noted Data : 01/24/22 05:33 01/24/22 05:33 Micro: Microbiology 01/22/22 17:34 Blood Culture - Preliminary Blood NEGATIVE TO DATE 01/22/22 17:31 Blood Culture - Preliminary Blood NEGATIVE TO DATE A&P Assessment and plan (1) Fever: Again fever up to 103 Fahrenheit today. Discussed with her and family, so far urine culture has been unrevealing, growing 70-80,000 mixed debbi, without clear 1 organism. It is difficult to know whether in fact there was an offending o rganism there. We will repeat urine culture. Additionally will check COVID-19. Discussed also with Dr. Wisdom regarding fever and consideration whether it may be coming from the uterine findings. In some cases in case of fibroid tumor degradation fever could be an accompanying symptom, although findings on the ultrasound certainly have been highly concerning for possible malignancy. Discussed again with family. Status: Acute (2) Acute encephalopathy: Today through the day she was better, but did appear to be a little bit more confused again during a spike of fever this afternoon. She denies any additional new symptoms. Overall she has been feeling better today. Will assess CT of the head. Encephalopathy suspected metabolic secondary to infection, urinary tract infection. However, with concerning findings on CT abdomen pelvis with uterine fibroid versus possible mass, with retroperitoneal lymphadenopathy, also with lung nodules, concern is for possible metastatic malignancy. In case of persistent symptoms or if confirmation of malignancy, will need additional assessment for possible CASEWORK MANAGER metastatic disease. Status: Acute (3) Acute UTI: Continue Primaxin. Repeat urine culture. No obstructive uropathy noted on CT. Status: Acute (4) Uterine mass: Findings on ultrasound with endometrial thickness 4.2 cm concerning for possible malignancy. She would need endometrial biopsy. Discussing today with Dr. Wisdom she could see her on Friday morning, and if she came n.p.o., could proceed to operating room biopsy with possible further intervention. Family later tell me, however, as well that she is a Mandaen, and will not accept whole blood, with limitations on blood products. They inquired about blood saving strategies for surgery. Discussed with them that I am not sure what capabilities we have, and encouraged him to make sure to bring this up during the appointment on Friday. They are considering in case blood sitting strategies are not viable here, proceeding with a biopsy, but seeking surgery if needed possibly in [place] where they are aware this is a possibility. Again encouraged him to discuss with performing physician regarding what options may be available. Possible fibroid but suspicious for possible malignancy. Status: Acute (5) Abnormal uterine bleeding (AUB): Pending outpatient gynecologic evaluation. FYI, does not accept whole blood. Status: Acute (6) Retroperitoneal lymphadenopathy: Discussed with her and family as above. Status: Acute (7) Lung nodules: Discussed with her and family as above, with concern for possibility of metastatic disease. Will need follow-up. Status: Acute Plan Hypokalemia: Replaced. Normal magnesium. Hypothyroidism Attestations Medical Necessity Statement*: Continued patient for additional assessment of encephalopathy, recurrent fever of unknown source. Coding Level of Care Code Acute Temper Mill Operator for [facility] Fwd Diagnoses Fever R50.9 Acute encephalopathy G93.40 Acute UTI N39.0 Uterine mass N85.8 Abnormal uterine bleeding (AUB) N93.9 Retroperitoneal lymphadenopathy R59.0 Lung nodules R91.8
[2022-01-25] VITALS: BP 150/100; PULSE 118; RESP 18; TEMP 38.3; O2SAT 95
--- NOTE | 2022-01-25 00:23 | PC.NURSE ---
i reported high temp 100.6 also high reps 118 to nurse
[2022-01-25] MEDS: D5-NS 0.45% + KCL 20 mEq 20 MEQ/1,000 ML BAG 30 MEQ IV (00:57)
[2022-01-25 04:51] LABS: Basophils # 0.1 10^3/uL (0.0-0.1); Basophils % 0.4 %; Eosinophils % 0.1 %; Hematocrit 40.7 % (37.0-47.0); Hemoglobin 13.7 g/dL (11.5-15.3); Lymphocytes # 3.2 10^3/uL (0.8-4.8); Lymphocytes % 19.8 %; Mean Corpuscular HGB Conc 33.7 g/dL (30.0-36.0); Mean Corpuscular Hemoglobin 29.3 pg (28.0-34.0); Mean Corpuscular Volume 87.2 fl (81-99); Mean Platelet Volume 12.3 fL (7.4-10.4); Monocytes # 1.4 10^3/uL (0.2-0.9); Monocytes % 8.6 %; Neutrophils # 11.42 10^3/uL (1.8-7.7); Neutrophils % 70.7 %; Nucleated Red Blood Cells % 0 %; Platelet Count 226 10^3/cmm (130-400); Red Blood Count 4.67 10^6/uL (4.1-5.3); Red Cell Distribution Width 12.5 % (12.1-15.1); White Blood Count 16.1 10^3/uL (4.0-10.0)
[2022-01-25 05:23] LABS: Alanine Aminotransferase 16 U/L (0-33); Albumin Level 4.2 g/dL (3.5-5.2); Alkaline Phosphatase 159 IU/L (35-105); Aspartate Amino Transferase 24 U/L (0-32); Blood Urea Nitrogen 18 mg/dL (8-23); Carbon Dioxide 23 mmol/L (22-29); Chloride 96 mmol/L (98-107); Globulin 2.6 g/dL (1.3-4.6); Glucose 151 mg/dL (65-115); Osmolality Calculated 281 mOsm/kg (285-295); Sodium 133 mmol/L (136-145); Total Bilirubin 0.6 mg/dL (0.15-1.2); Total Protein 6.8 g/dL (6.6-8.7)
[2022-01-25 05:24] LABS: Procalcitonin 0.12 ng/mL (0-0.5)
[2022-01-25 05:27] LABS: Anion Gap 17.8 (5-19); Potassium 3.8 mmol/L (3.5-5.1)
--- NOTE | 2022-01-25 05:48 | PC.NURSE ---
1923 pts approached nurses station reporting his had fallen and needed help. Upon entering pt room, pt was found walking out of bathroom returning to bed. Pt reported no pain or complaints. Vital signs obtained, pt assessed. Rachel Rivera, wash driller helper, and [facility] Sup notified.
[2022-01-25 08:00] VITALS: BP 137/90; PULSE 112; RESP 18; TEMP 37.3; O2SAT 95
[2022-01-25] MEDS: thyroid 60 mg Tablet 15 MG PO (08:51)
[2022-01-25] MEDS: vancomycin 1,000 MG in sodium chloride 0.9% 250 ML 250 MG IV (08:51)
[2022-01-25] MEDS: haloperidol inj 5 mg/mL INJ 1 mL 1 MG IM (10:40)
[2022-01-25 12:00] VITALS: BP 127/88; PULSE 110; RESP 18; O2SAT 97
[2022-01-25 16:00] VITALS: BP 128/55; PULSE 100; RESP 18
--- NOTE | 2022-01-25 16:52 | CT_ITS ---
WS: [id number] CT scan of the head, 01/25/2022 Clinical Data: Confusion episodes Comparison: None. DLP: 1045.[address] scans at [facility] use at least one of these dose optimization techniques: automated e xposure control; mA and/or kV adjustment per patient size (includes targeted exams where dose is matc hed to clinical indication); or iterative reconstruction. Findings: The ventricular system is normal without shift. No recent infarct or hemorrhage is seen. There are no abnormal intracerebral masses. The cerebellum and brainstem are not remarkable. Bony windows of the skull and skull base show no fractures or erosions. The mastoid air cells, music industry intern al auditory canals, sella turcica, intraorbital contents, and paranasal sinuses are unremarkable. CT/CT head wo con* [id number] Impression: Negative CT scan of the head
--- NOTE | 2022-01-25 18:59 | PM.PN ---
Subjective Subjective: Overnight she had a fall. This morning noted with paranoia, including talking about bodies in the trash bins, attempts of staff poisoning her reported by both her and son. She did not reveal such thoughts to me, but did reveal similar paranoid ideation to the telephonic nurse case manager. Subjectively otherwise she states she is feeling a little bit better. Having some lower abdominal pain. Vitals/I&O/Wt Last Vital Signs Temp 99.1 F 01/25/22 08:00 Pulse 100 01/25/22 16:00 Resp 18 01/25/22 16:00 BP 128/55 01/25/22 16:00 Pulse Ox 97 01/25/22 12:00 O2 Del Method 01/25/22 16:00 01/25/22 01/25/22 01/25/22 06:59 14:59 22:59 Intake Total 100 / 1800 590 / 590 100 / 690 Balance 100 / 1800 590 / 590 100 / 690 Physical Exam Narrative: and son at bedside Const: COMMON NORMALS: patient oriented x3 and alert GENERAL APPEARANCE: cooperative ORIENTATION/CONSCIOUSNESS: Yes awake OTHER: Gets off trail, and takes her a while to formulate her thoughts. HENMT: COMMON NORMALS: oropharynx normal Neck/C-Spine: COMMON NORMALS: no JVD Resp: COMMON NORMALS: normal respiratory effort and clear to auscultation bilaterally AUSCULTATION: clear to auscultation bilaterally Cardio: COMMON NORMALS: no JVD, regular rhythm, S1 normal heart sound present, S2 normal heart sound present and No murmurs present (Cardio) RHYTHM: regular rhythm HEART SOUNDS: S1 normal heart sound present and S2 normal heart sound present GI: COMMON NORMALS: Normal to inspection, nondistended, normoactive bowel sounds present, Soft to palpation and non-tender PALPATION: Yes Soft to palpation and Yes Tenderness to palpation present (GI) : OTHER: L CVA tenderness Extremity: COMMON NORMALS: no joint enlargement and no pedal edema Neuro: COMMON NORMALS: patient oriented x3 and moves all extremities SENSORIUM/ORIENTATION: Yes alert Skin: COMMON NORMALS: no rashes or lesions noted GENERAL SKIN EXAM: no rashes or lesions noted Data : 01/25/22 04:43 01/25/22 04:43 A&P Assessment and plan (1) Fever: Again fever last night 100.9. This morning rise in leukocytosis to 16.1. Acute metabolic encephalopathy with delirium with paranoid ideation. COVID-[address] of the head was ordered, obtained today unremarkable. Urine culture was repeated. Today broaden antibiotics with vancomycin. Blood cultures so far negative. I see also has had some persistently elevated alk phos, although T bili normal. No upper abdominal pain. However, will assess also with gallbladder ultrasound. Procalcitonin is 0.12, however, and another possibility is considered fever possibly could be due to degenerative changes in the mass itself, although not sure if this should cause encephalopathy. Status: Acute (2) Acute encephalopathy: Acute metabolic encephalopathy, suspect secondary to urinary tract infection or other occult infection, fever. With severe paranoid ideation which she would not admit to me, but has admitted to her and son, as well as the telephonic nurse case manager. Restless, walked out into the hallway today looking for her family who were in the waiting area. Discussed with them antipsychotic medication, they had also mentioned that she has not slept in close to 72 hours. Discussed starting trazodone tonight as well. Noncontrast CT of the head returned unremarkable. Encephalopathy suspected metabolic secondary to infection, urinary tract infection. However, with concerning findings on CT abdomen pelvis with uterine fibroid versus possible mass, with retroperitoneal lymphadenopathy, also with lung nodules, concern is for possible metastatic malignancy. In case of persistent symptoms or if confirmation of malignancy, will need additional assessment for possible FLOTATION TENDER metastatic disease. Status: Acute (3) Acute UTI: Continue Primaxin. Repeating urine culture. No obstructive uropathy noted on CT. Status: Acute (4) Uterine mass: Findings on ultrasound with endometrial thickness 4.2 cm concerning for possible malignancy. She would need endometrial biopsy. Discussing today with Dr. Wisdom she could see her on Friday morning, and if she came n.p.o., could proceed to operating room biopsy with possible further intervention. Family later tell me, however, as well that she is a Restorationism, and will not accept whole blood, with limitations on blood products. They inquired about blood saving strategies for surgery. Discussed with them that I am not sure what capabilities we have, and encouraged him to make sure to bring this up during the appointment on Friday. They are considering in case blood sitting strategies are not viable here, proceeding with a biopsy, but seeking surgery if needed possibly in [place] where they are aware this is a possibility. Again encouraged him to discuss with performing physician regarding what options may be available. Possible fibroid but suspicious for possible malignancy. Status: Acute (5) Abnormal uterine bleeding (AUB): Pending outpatient gynecologic evaluation. FYI, does not accept whole blood. Status: Acute (6) Retroperitoneal lymphadenopathy: Discussed with her and family as above. Status: Acute (7) Lung nodules: Discussed with her and family as above, with concern for possibility of metastatic disease. Will need follow-up. Status: Acute Plan Hypokalemia: Replaced. Normal magnesium. Hypothyroidism Attestations Medical Necessity Statement*: Continue admission for additional assessment of acute encephalopathy, recurrent fever. Coding Level of Care Code Acute Wrapping Machine Tender for g Fwd Diagnoses Fever R50.9 Acute encephalopathy G93.40 Acute UTI N39.0 Uterine mass N85.8 Abnormal uterine bleeding (AUB) N93.9 Retroperitoneal lymphadenopathy R59.0 Lung nodules R91.8
[2022-01-25 20:16] VITALS: BP 123/83; PULSE 97; RESP 18; TEMP 37.7; O2SAT 95
[2022-01-25] MEDS: trazodone 50 mg Tablet 25 MG PO (20:44)
[2022-01-25 23:28] VITALS: BP 103/71; PULSE 92; RESP 17; TEMP 37.1; O2SAT 97
[2022-01-26] MEDS: D5-NS 0.45% + KCL 20 mEq 20 MEQ/1,000 ML BAG 30 MEQ IV (01:02)
[2022-01-26 04:36] VITALS: BP 105/69; PULSE 90; RESP 14; TEMP 36.9; O2SAT 95
[2022-01-26 05:02] LABS: Basophils # 0.1 10^3/uL (0.0-0.1); Basophils % 0.6 %; Eosinophils # 0.1 10^3/uL (0.0-0.8); Eosinophils % 0.5 %; Hematocrit 39.4 % (37.0-47.0); Hemoglobin 13.6 g/dL (11.5-15.3); Lymphocytes # 3.6 10^3/uL (0.8-4.8); Lymphocytes % 25.4 %; Mean Corpuscular HGB Conc 34.5 g/dL (30.0-36.0); Mean Corpuscular Hemoglobin 29.4 pg (28.0-34.0); Mean Corpuscular Volume 85.3 fl (81-99); Mean Platelet Volume 12.4 fL (7.4-10.4); Monocytes # 1.2 10^3/uL (0.2-0.9); Monocytes % 8.6 %; Neutrophils % 64.5 %; Nucleated Red Blood Cells % 0 %; Platelet Count 205 10^3/cmm (130-400); Red Blood Count 4.62 10^6/uL (4.1-5.3); Red Cell Distribution Width 12.5 % (12.1-15.1); White Blood Count 14.2 10^3/uL (4.0-10.0)
[2022-01-26 05:28] LABS: Alanine Aminotransferase 17 U/L (0-33); Albumin Level 3.8 g/dL (3.5-5.2); Alkaline Phosphatase 150 IU/L (35-105); Aspartate Amino Transferase 26 U/L (0-32); Blood Urea Nitrogen 23 mg/dL (8-23); Calcium 8.7 mg/dL (8.5-10.5); Carbon Dioxide 25 mmol/L (22-29); Chloride 92 mmol/L (98-107); Globulin 2.5 g/dL (1.3-4.6); Glucose 184 mg/dL (65-115); Osmolality Calculated 282 mOsm/kg (285-295); Sodium 132 mmol/L (136-145); Total Bilirubin 0.8 mg/dL (0.15-1.2); Total Protein 6.3 g/dL (6.6-8.7)
[2022-01-26 05:36] LABS: Anion Gap 18.8 (5-19); Potassium 3.8 mmol/L (3.5-5.1)
[2022-01-26 08:00] VITALS: BP 115/79; PULSE 94; RESP 16; TEMP 37.1; O2SAT 94
[2022-01-26] MEDS: thyroid 60 mg Tablet 15 MG PO (09:28)
[2022-01-26] MEDS: vancomycin 1,000 MG in sodium chloride 0.9% 250 ML 250 MG IV (09:32)
--- NOTE | 2022-01-26 11:33 | PC.SOCIAL ---
Pg 2 IMM Explained to pt & her family Pg 2 IMM. No questions voiced. Provided pt a copy. Initialed, dated, & timed a copy & placed in chart.
[2022-01-26 12:00] VITALS: BP 130/83; PULSE 103; RESP 16; TEMP 36.7; O2SAT 95
[2022-01-26 13:58] LABS: Quest SARS-CoV-2 RNA NOT DETECTED (NOT DETECTED)
[2022-01-26 15:29] VITALS: BP 108/75; PULSE 101; RESP 15; TEMP 37; O2SAT 93
--- NOTE | 2022-01-26 18:41 | USR_ITS ---
PROCEDURE INFORMATION: Exam: US Abdomen, Limited; Right Upper Quadrant Exam date and time: 01/26/2022 2:11 AM Age: 71 years old Clinical indication: Abdominal pain; Additional info: Fevers, elevated ap TECHNIQUE: Imaging protocol: Real time ultrasound of the abdomen with image documentation. Limited exam focused on the right upper quadrant. COMPARISON: CT kidney stone [id number] 01/22/2022 7:20 PM FINDINGS: Liver: Unremarkable. Gallbladder: No gallstones. No gallbladder wall thickening or pericholecystic fluid. Negative sonographic Barrios's sign, as per the performing asphalt heater tender. Biliary ducts: Normal. No stones. No dilation. Pancreas: Unremarkable as visualized. Right kidney: No mass. No definite stones. No hydronephrosis. US/US gall bladder [id number] IMPRESSION: No acute sonographic findings.
--- NOTE | 2022-01-26 18:42 | PM.PN ---
Subjective Subjective: She is awake and alert. States she is feeling better. Somewhat sluggish in responses. She for the first time slept overnight. Denies any new symptoms. Per discussion with her nurse, did not report any further paranoid ideation this morning. Vitals/I&O/Wt Last Vital Signs Temp 98.6 F 01/26/22 15:29 Pulse 101 H 01/26/22 15:29 Resp 15 01/26/22 15:29 BP 108/75 01/26/22 15:29 Pulse Ox 93 01/26/22 15:29 O2 Del Method 01/26/22 15:29 01/26/22 01/26/22 01/26/22 06:59 14:59 22:59 Intake Total 1062.5 / 1912.5 810 / 810 Output Total 300 / 600 325 / 325 Balance 762.5 / 1312.5 810 / 810 -325 / 485 Physical Exam Const: COMMON NORMALS: patient oriented x3 and alert GENERAL APPEARANCE: cooperative ORIENTATION/CONSCIOUSNESS: Yes awake OTHER: Awake and alert, appears calm, interacting, although somewhat slowed responsiveness. HENMT: COMMON NORMALS: oropharynx normal Neck/C-Spine: COMMON NORMALS: no JVD Resp: COMMON NORMALS: normal respiratory effort and clear to auscultation bilaterally AUSCULTATION: clear to auscultation bilaterally Cardio: COMMON NORMALS: no JVD, regular rhythm, S1 normal heart sound present, S2 normal heart sound present and No murmurs present (Cardio) RHYTHM: regular rhythm HEART SOUNDS: S1 normal heart sound present and S2 normal heart sound present GI: COMMON NORMALS: Normal to inspection, nondistended, normoactive bowel sounds present, Soft to palpation and non-tender PALPATION: Yes Soft to palpation and Yes Tenderness to palpation present (GI) : OTHER: L CVA tenderness Extremity: COMMON NORMALS: no joint enlargement and no pedal edema Neuro: COMMON NORMALS: patient oriented x3 and moves all extremities SENSORIUM/ORIENTATION: Yes alert Skin: COMMON NORMALS: no rashes or lesions noted GENERAL SKIN EXAM: no rashes or lesions noted Data : 01/26/22 04:45 01/26/22 04:45 Micro: Microbiology 01/25/22 04:58 Urine Culture - Preliminary Urine,Clean Catch A&P Assessment and plan (1) Fever: After broadening antibiotic course with vancomycin, so far appears to be no longer febrile. Is with improvement today 14.2. Somewhat sluggish responses but appears to have slept for the first time no overnight with trazodone, yesterday did receive Haldol. Delirium and paranoid ideation appears to be improving. Possible sepsis with leukocytosis yesterday 16,000, tachycardia, fever. Continue empiric antibiotics. COVID-[address] of the head was ordered, unremarkable. Urine culture was repeated. So far without growth. Blood cultures so far negative. I see also has had some persistently elevated alk phos, although T bili normal. No upper abdominal pain. However, gallbladder ultrasound obtained and without acute sonographic findings. Procalcitonin is 0.12, however, and another possibility is considered fever possibly could be due to degenerative changes in the mass itself, although not sure if this should cause encephalopathy. Status: Acute (2) Acute encephalopathy: Acute metabolic encephalopathy, suspect secondary to urinary tract infection or other occult infection, fever. With severe paranoid ideation which she would not admit to me, but has admitted to her and son, as well as the shoe caser. Restless, walked out into the hallway today looking for her family who were in the waiting area. Discussed with them antipsychotic medication, they had also mentioned that she has not slept in close to 72 hours. Discussed starting trazodone tonight as well. Noncontrast CT of the head returned unremarkable. Check TSH. Encephalopathy suspected metabolic secondary to infection, urinary tract infection. However, with concerning findings on CT abdomen pelvis with uterine fibroid versus possible mass, with retroperitoneal lymphadenopathy, also with lung nodules, concern is for possible metastatic malignancy. In case of persistent symptoms or if confirmation of malignancy, will need additional assessment for possible UNIVERSITY REGISTRAR metastatic disease. Status: Acute (3) Acute UTI: Continue Primaxin. Repeating urine culture. No obstructive uropathy noted on CT. Status: Acute (4) Uterine mass: Findings on ultrasound with endometrial thickness 4.2 cm concerning for possible malignancy. She would need endometrial biopsy. Discussing today with Dr. Wisdom she could see her on Friday morning, and if she came n.p.o., could proceed to operating room biopsy with possible further intervention. Family later tell me, however, as well that she is a Gnosticist, and will not accept whole blood, with limitations on blood products. They inquired about blood saving strategies for surgery. Discussed with them that I am not sure what capabilities we have, and encouraged him to make sure to bring this up during the appointment on Friday. They are considering in case blood sitting strategies are not viable here, proceeding with a biopsy, but seeking surgery if needed possibly in [place] where they are aware this is a possibility. Again encouraged him to discuss with performing physician regarding what options may be available. Possible fibroid but suspicious for possible malignancy. Status: Acute (5) Abnormal uterine bleeding (AUB): Pending outpatient gynecologic evaluation. FYI, does not accept whole blood. Status: Acute (6) Retroperitoneal lymphadenopathy: Discussed with her and family as above. Status: Acute (7) Lung nodules: Discussed with her and family as above, with concern for possibility of metastatic disease. Will need follow-up. Status: Acute Plan Hypokalemia: Replaced. Normal magnesium. Hypothyroidism Attestations Medical Necessity Statement*: Continue admission for assessment and management of possible sepsis, acute encephalopathy and delirium, and additional assessment of etiology of fever and delirium. Antibiotic therapy, arrangements for follow-up for assessment of endometrial mass, possibly metastatic malignancy. Coding Level of Care Code Acute Personnel Director for Chg Fwd Diagnoses Fever R50.9 Acute encephalopathy G93.40 Acute UTI N39.0 Uterine mass N85.8 Abnormal uterine bleeding (AUB) N93.9 Retroperitoneal lymphadenopathy R59.0 Lung nodules R91.8
[2022-01-26] MEDS: trazodone 50 mg Tablet 25 MG PO (20:29)
[2022-01-26 20:31] VITALS: BP 108/75; PULSE 101; RESP 15; TEMP 37; O2SAT 93
[2022-01-27] VITALS: BP 131/83; PULSE 96; RESP 21; TEMP 36.8; O2SAT 91
[2022-01-27] MEDS: D5-NS 0.45% + KCL 20 mEq 20 MEQ/1,000 ML BAG 30 MEQ IV (01:44)
[2022-01-27 04:00] VITALS: BP 118/80; PULSE 89; RESP 18; TEMP 37.2; O2SAT 95
[2022-01-27 05:59] LABS: Basophils % 0.2 %; Eosinophils % 0.1 %; Hematocrit 36.7 % (37.0-47.0); Hemoglobin 11.9 g/dL (11.5-15.3); Lymphocytes # 2.6 10^3/uL (0.8-4.8); Lymphocytes % 17.8 %; Mean Corpuscular HGB Conc 32.4 g/dL (30.0-36.0); Mean Corpuscular Hemoglobin 29.6 pg (28.0-34.0); Mean Corpuscular Volume 91.3 fl (81-99); Mean Platelet Volume 12.7 fL (7.4-10.4); Monocytes # 1.3 10^3/uL (0.2-0.9); Monocytes % 8.6 %; Neutrophils # 10.59 10^3/uL (1.8-7.7); Neutrophils % 72.7 %; Nucleated Red Blood Cells % 0 %; Platelet Count 175 10^3/cmm (130-400); Red Blood Count 4.02 10^6/uL (4.1-5.3); Red Cell Distribution Width 12.7 % (12.1-15.1); White Blood Count 14.6 10^3/uL (4.0-10.0)
[2022-01-27 06:36] LABS: Alanine Aminotransferase 17 U/L (0-33); Albumin Level 3.4 g/dL (3.5-5.2); Alkaline Phosphatase 129 IU/L (35-105); Anion Gap 15.8 (5-19); Aspartate Amino Transferase 19 U/L (0-32); Blood Urea Nitrogen 23 mg/dL (8-23); Calcium 8.6 mg/dL (8.5-10.5); Carbon Dioxide 23 mmol/L (22-29); Chloride 92 mmol/L (98-107); Globulin 2.3 g/dL (1.3-4.6); Glucose 125 mg/dL (65-115); Osmolality Calculated 269 mOsm/kg (285-295); Potassium 3.8 mmol/L (3.5-5.1); Sodium 127 mmol/L (136-145); Thyroid Stimulating Hormone 0.49 uIU/mL (0.27-4.20); Total Bilirubin 0.5 mg/dL (0.15-1.2); Total Protein 5.7 g/dL (6.6-8.7)
[2022-01-27 08:00] VITALS: BP 142/87; PULSE 98; RESP 16; TEMP 36.9; O2SAT 95
[2022-01-27 08:43] LABS: Vancomycin Trough < 4.0 ug/mL (10-15)
[2022-01-27] MEDS: thyroid 60 mg Tablet 15 MG PO (09:28)
[2022-01-27] MEDS: vancomycin 1,000 MG in sodium chloride 0.9% 250 ML 250 MG IV ×2 (09:28→20:50)
[2022-01-27] MEDS: quetiapine 25 mg Tablet PO ×2 (10:37→18:10)
[2022-01-27] MEDS: lactated ringers 1,000 ML 30 ML IV (10:40)
[2022-01-27 12:00] VITALS: BP 100/68; PULSE 94; RESP 16; TEMP 37.3; O2SAT 94
[2022-01-27 16:00] VITALS: BP 122/79; PULSE 96; RESP 16; TEMP 38.1; O2SAT 94
--- NOTE | 2022-01-27 19:31 | P.PN_ITS ---
Subjective Subjective: Today she is being visited by family. Seems like she had again a sleepless night last night. The reports that on going to the restroom she looked very frightened by something. Her son reports she had told him that she thought his thigh was bleeding. She also thought it looked like his face was melting. She herself apart from lower abdominal pain denies any other new symptoms. Vitals/I&O/Wt Last Vital Signs Temp 100.5 F H 01/27/22 16:00 Pulse 96 01/27/22 16:00 Resp 16 01/27/22 16:00 BP 122/79 01/27/22 16:00 Pulse Ox 94 01/27/22 16:00 O2 Del Method 01/27/22 16:00 01/27/22 01/27/22 01/27/22 06:59 14:59 22:59 Intake Total 1771 / 2801 853 / 853 200 / 1053 Output Total 500 / 500 200 / 700 Balance 1771 / 2476 353 / 353 0 / 353 Weight last 48 hrs Weight 64.954 kg Physical Exam Narrative: and family visiting. Const: COMMON NORMALS: alert GENERAL APPEARANCE: cooperative ORIENTATION/CONSCIOUSNESS: Yes awake OTHER: Awake and alert, appears calm, interacting, although somewhat slowed responsiv eness. HENMT: COMMON NORMALS: oropharynx normal Neck/C-Spine: COMMON NORMALS: no JVD Resp: COMMON NORMALS: normal respiratory effort and clear to auscultation bilaterally AUSCULTATION: clear to auscultation bilaterally Cardio: COMMON NORMALS: no JVD, regular rhythm, S1 normal heart sound present, S2 normal heart sound present and No murmurs present (Cardio) RHYTHM: regular rhythm HEART SOUNDS: S1 normal heart sound present and S2 normal heart sound present GI: COMMON NORMALS: Normal to inspection, nondistended, normoactive bowel yimi nds present, Soft to palpation and non-tender PALPATION: Yes Soft to palp ation and Yes Tenderness to palpation present (GI) : OTHER: L CVA tenderness Extremity: COMMON NORMALS: no joint enlargement and no pedal edema Neuro: COMMON NORMALS: moves all extremities SENSORIUM/ORIENTATION: Yes alert Skin: COMMON NORMALS: no rashes or lesions noted GENERAL SKIN EXAM: no rashes or lesions noted Data : 01/27/22 05:19 01/27/22 05:19 Micro: Microbiology 01/22/22 17:34 Blood Culture - Final Blood NO GROWTH AFTER 5 DAYS 01/22/22 17:31 Blood Culture - Final Blood NO GROWTH AFTER 5 DAYS 01/25/22 04:58 Urine Culture - Final Urine,Clean Catch A&P Assessment and plan (1) Fever: Again recurrence of low-grade fever 100.5. Leukocytosis with mild improvement but persistent. Continue Primaxin, antibiotic broadened with vancomycin. Given again recurrence of fever, does not have respiratory symptoms, but will additionally assess fungal studies including Blastomyces, histoplasma, cryptococcal, Coccidioides, Fungitell, galactomannan. Perhaps LP can be considered tomorrow with return of IR. Additionally possibility of noninfectious fever from tumor degeneration, although not sure that should cause delirium/encephalopathy. With her delirium I am not sure that she would be able to undergo MRI currently to additionally better assess for metastatic disease. She did respond well to Haldol when given initially, although antipsychotics were held yesterday, and symptoms worsen. Perhaps may respond well to Seroquel, and be able to undergo MRI. With retroperitoneal lymphadenopathy, possibly lymphoma could be another possibi lity. We will also check LDH. In case no additional source of fever identified, lymph node biopsy may need to be considered. Possible sepsis with leukocytosis yesterday, tachycardia, fever. Continue empiric antibiotics. COVID-[address] of the head was ordered, unremarkable. Urine culture was repeated. So far without growth. Blood cultures so far negative. I see also has had some persistently elevated alk phos, although T bili normal. No upper abdominal pain. However, gallbladder ultrasound obtained and without acute sonographic findings. Status: Acute (2) Acute encephalopathy: Did initially respond well to Haldol on 01/25, subsequently trazodone and slept at night, yesterday had a better day, however, today again having delirium, hallucinations, on and off confusion. We will add scheduled Seroquel for now. Continue trazodone unchanged for now. Family reports that she seems to occasionally also wake up at night gasping for air, although each time oxygen saturation was checked it was normal. Seems may be related to delirium as well. Discussed consideration of continuous pulse ox, although given pulse ox has been normal this may just startle her more due to alarms from probe issues and additional light source. They will bring also do her own pulse ox in addition to hospital spot checks and check in case there are any symptoms. If hypoxia noted, will add continuous pulse ox. Acute metabolic encephalopathy, suspect secondary to urinary tract infection or other occult infection, fever. With severe paranoid ideation which she would not admit to me, but has admitted to her and son, as well as the case packer and sealer. Restless, walked out into the hallway today looking for her family who were in the waiting area. Discussed with them antipsychotic medication, they had also mentioned that she has not slept in close to 72 hours. Discussed starting trazodone tonight as well. Noncontrast CT of the head returned unremarkable. Normal TSH. Encephalopathy initially suspected metabolic secondary to infection, urinary tract infection. However, with concerning findings on CT abdomen pelvis with uterine fibroid versus possible mass, with retroperitoneal lymphadenopathy, also with lung nodules, concern is for possible metastatic malignancy. In case of persistent symptoms or if confirmation of malignancy, will need additional assessment for possible PATTERN CHART WRITER metastatic disease or other process. Status: Acute (3) Acute UTI: UTI appears less likely. Negative repeat urine culture. No obstructive uropathy noted on CT. Status: Acute (4) Uterine mass: Findings on ultrasound with endometrial thickness 4.2 cm concerning for possible malignancy. She would need endometrial biopsy. Initial plans were to follow-up with Dr. Wisdom on Friday morning in clinic, however, as discussed alternatively if she is still in the hospital to keep n.p.o. after midnight for consideration of possible biopsy while she is here either Friday or Friday. Of note. family later also report that she is a Tenriism and will not accept whole blood, with limitations on blood products. They inquire about blood saving strategies for surgery. Discussed with them that I am not sure what capabilities we have. They were going to discuss with Dr. Moreno at appointment time, however, as she is still here, please discuss with her regarding limitation on transfusion tomorrow as this was not yet known at the time of initial discussion. Potentially if blood saving procedure were not a possibility here, they would be agreeable to possibly undergo biopsy alone here, then other surgical procedure/hysterectomy at outside facility with blood saving capability again only if this were not available here. Possible fibroid but suspicious for possible malignancy. Question of metastatic disease. Status: Acute (5) Abnormal uterine bleeding (AUB): Pending outpatient gynecologic evaluation. Does not accept whole blood. Status: Acute (6) Retroperitoneal lymphadenopathy: Discussed with her and family as above. Status: Acute (7) Lung nodules: Discussed with her and family as above, with concern for possibility of metastatic disease. Will need follow-up. Status: Acute Plan Hypokalemia: Replaced. Normal magnesium. Hypothyroidism Attestations Medical Necessity Statement*: Continue admission for assessment management of recurrent fever, possible sepsis, assessment for other causes assessment of management of acute encephalopathy and delirium, assessment of uterine mass, possible malignancy with metastatic spread. Coding Level of Care Code Acute Pressroom Worker for [facility] Fwd Diagnoses Fever R50.9 Acute encephalopathy G93.40 Acute UTI N39.0 Uterine mass N85.8 Abnormal uterine bleeding (AUB) N93.9 Retroperitoneal lymphadenopathy R59.0 Lung nodules R91.8
[2022-01-27 20:14] VITALS: BP 109/69; PULSE 99; RESP 18; TEMP 37.2; O2SAT 95
[2022-01-27] MEDS: trazodone 50 mg Tablet 25 MG PO (20:45)
--- NOTE | 2022-01-28 01:35 | PC.NURSE ---
Pt lying in bed resting with eyes closed. Resp even and non-labored no distress or sob noted. Pt had no c/o pain or discomfort at the present time. No needs voiced. Call light in reach. Family at bedside.
[2022-01-28] MEDS: acetaminophen 325 mg Tablet 650 MG PO ×2 (03:25→19:22)
[2022-01-28 03:35] VITALS: BP 120/78; PULSE 93; RESP 16; TEMP 37.7; O2SAT 92
[2022-01-28 04:38] LABS: Basophils # 0.1 10^3/uL (0.0-0.1); Basophils % 0.5 %; Eosinophils # 0.1 10^3/uL (0.0-0.8); Eosinophils % 0.4 %; Hematocrit 32.2 % (37.0-47.0); Hemoglobin 10.6 g/dL (11.5-15.3); Lymphocytes # 1.9 10^3/uL (0.8-4.8); Lymphocytes % 16.2 %; Mean Corpuscular HGB Conc 32.9 g/dL (30.0-36.0); Mean Corpuscular Hemoglobin 29.4 pg (28.0-34.0); Mean Corpuscular Volume 89.2 fl (81-99); Mean Platelet Volume 12.7 fL (7.4-10.4); Monocytes % 8.6 %; Neutrophils # 8.51 10^3/uL (1.8-7.7); Neutrophils % 73.8 %; Nucleated Red Blood Cells % 0 %; Platelet Count 161 10^3/cmm (130-400); Red Blood Count 3.61 10^6/uL (4.1-5.3); White Blood Count 11.5 10^3/uL (4.0-10.0)
[2022-01-28 05:06] LABS: Alanine Aminotransferase 14 U/L (0-33); Albumin Level 3.1 g/dL (3.5-5.2); Alkaline Phosphatase 112 IU/L (35-105); Anion Gap 15.4 (5-19); Aspartate Amino Transferase 15 U/L (0-32); Blood Urea Nitrogen 22 mg/dL (8-23); Calcium 8.3 mg/dL (8.5-10.5); Carbon Dioxide 25 mmol/L (22-29); Chloride 98 mmol/L (98-107); Globulin 2.1 g/dL (1.3-4.6); Glucose 123 mg/dL (65-115); Lactate Dehydrogenase 313 U/L (135-214); Osmolality Calculated 285 mOsm/kg (285-295); Potassium 3.4 mmol/L (3.5-5.1); Sodium 135 mmol/L (136-145); Total Bilirubin 0.4 mg/dL (0.15-1.2); Total Protein 5.2 g/dL (6.6-8.7)
[2022-01-28 08:00] VITALS: BP 121/80; PULSE 84; RESP 17; TEMP 36.7; O2SAT 93
[2022-01-28] MEDS: vancomycin 1,000 MG in sodium chloride 0.9% 250 ML 250 MG IV ×2 (11:47→21:42)
[2022-01-28] MEDS: quetiapine 25 mg Tablet PO (11:48)
[2022-01-28] MEDS: thyroid 60 mg Tablet 15 MG PO (11:48)
[2022-01-28 11:57] VITALS: BP 134/85; PULSE 96; RESP 17; TEMP 37.6; O2SAT 93
--- NOTE | 2022-01-28 12:52 | FL_ITS ---
WS: [id number] LUMBAR PUNCTURE UNDER FLUOROSCOPY: OBTAIN CSF FOR ANALYSIS HISTORY: fever, delirium COMPARISON: None available. FLUOROSCOPY TIME: 0min [id number] # of spot films: 1 Procedure, complications, and risk and benefits explained to the patient. Consent was obtained from t he family member.. Recent laboratory work and medication are reviewed prior to procedure. Skin over the lumbar is cleansed with ChloraPrep and anesthetized with 1% buffered lidocaine. Access into the thecal sac is achieved. CSF is removed in a sterile manner and placed in the sterile tubes. Approximately 10 ml is removed without difficulty. No complications are encountered. CSF this into the laboratory for analysis as requested. FL/FL guided lumbarpunc dx* [id number] IMPRESSION: Uncomplicated lumbar puncture for CSF. CSF collected for analysis as requested.
--- NOTE | 2022-01-28 12:52 | XRR_ITS ---
PROCEDURE INFORMATION: Exam: XR Chest Exam date and time: 01/28/2022 1:55 PM Age: 71 years old Clinical indication: Fever; Patient HX: PT unable to communicate; Additional info: Persistent fever TECHNIQUE: Imaging protocol: Radiologic exam of the chest. Views: 1 view. COMPARISON: CT kidney stone [id number] 01/22/2022 7:20 PM FINDINGS: Lungs: Minimal bilateral hilar to lower lobe atelectasis versus minimal infiltrate. Pleural spaces: Trace left pleural effusion suspected. Heart/Mediastinum: Mild cardiomegaly and pulmonary vascular congestion. Bones/joints: Unremarkable. XR/XR chest 1V portable [id number] IMPRESSION: 1. Mild cardiomegaly and pulmonary vascular congestion. 2. Trace left pleural effusion suspected. 3. Minimal bilateral hilar to lower lobe atelectasis versus minimal infiltrate.
--- NOTE | 2022-01-28 12:56 | CTR_ITS ---
PROCEDURE INFORMATION: Exam: CT Chest Without Contrast; Diagnostic Exam date and time: 01/28/2022 4:03 PM Age: 71 years old Clinical indication: Fever; Additional info: Persistent fever, persistent fever, concern also for possible metastatsic TECHNIQUE: Imaging protocol: Diagnostic computed tomography of the chest without contrast. Radiation optimization: All CT scans at this facility use at least one of these dose optimization techniques: automated exposure control; mA and/or kV adjustment per patient size (includes targeted exams where dose is matched to clinical indication); or iterative reconstruction. COMPARISON: CR XR chest 1V portable [id number] 01/28/2022 1:55 PM RADIATION DOSE METRICS: Total DLP (mGy-cm): 357.86 FINDINGS: Lungs: Multifocal pulmonary nodules throughout both lung lebron measuring up to 6.1 mm, concerning for diffuse metastatic disease. Pleural spaces: Trace bilateral pleural effusions. Heart: Unremarkable. No cardiomegaly. No pericardial effusion. Lymph nodes: Several prominent subcentimeter short axis mediastinal lymph nodes, nonspecific. Vasculature: Unremarkable. No aortic aneurysm. Bones/joints: Unremarkable. No acute fracture. Soft tissues: Unremarkable. CT/CT chest wo con [id number] IMPRESSION: 1. Several prominent subcentimeter short axis mediastinal lymph nodes, nonspecific. 2. Multifocal pulmonary nodules throughout both lung lebron measuring up to 6.1 mm, concerning for diffuse metastatic disease. 3. Trace bilateral pleural effusions.
--- NOTE | 2022-01-28 13:56 | P.CONIM_ITS ---
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 Leigh Attending Physician: Monica Leigh MD Primary Care Provider: RELL Godoy History of Present Illness History of Present Illness Oanh Murray is a 71 year old female who was admitted for fever. She was found to have a large uterine mass on imaging and was actually scheduled to see me the same day. She was treated for uti, but has had waxing and waning of fev er. Her endometrial thickness is reported at 4.2 cm, which is significantly thickened. Review of Systems General: Reports: 10 or more systems reviewed and unremarkable except in HPI and below Medications/Allergies Home Medications Medication Instructions Recorded Confirmed Last Taken Type cholecalciferol (vitamin D3) 25 5,000 unit PO DAILY 09/07/19 01/22/22 01/22/22 History mcg (1,000 unit) tablet (Vitamin D3) thyroid (pork) 15 mg tablet 15 mg PO DAILY #90 tabs 10/29/21 01/22/22 01/22/22 Rx ([place] Thyroid) ciprofloxacin HCl 250 mg tablet 250 mg PO BID 5 days #10 tabs 01/20/22 01/22/22 01/22/22 Rx (Cipro) Whole Food Multi Vitamin Liq. 30 ml PO DAILY 01/22/22 01/22/22 01/22/22 History Allergies Allergy/AdvReac Type Severity Reaction Status Date / Time Penicillins Allergy Rash Verified 01/22/22 17:30 Whole blood AdvReac Unknown Unknown Uncoded 01/24/22 21:06 Current Medications Generic Name Dose Route Start Last Admin Trade Name Freq PRN Reason Stop Dose Admin Acetaminophen 650 mg 01/22/22 23:08 01/28/22 03:25 Acetaminophen 325 Mg Tablet PO 650 mg Q6H PRN Administration Mild/Mod Pain Or Temp >/= 101 Imipenem/Cilastatin Sodium 500 100 mls @ 200 mls/hr 01/23/22 13:00 01/28/22 13:31 mg/ Dextrose IV Infused Q6H YEHUDA Infusion Protocol Vancomycin HCl 1,000 mg/ 250 mls @ 250 mls/hr 01/27/22 09:00 01/28/22 12:53 Sodium Chloride IV Infused Q12H YEHUDA Infusion Lactated Ringer's 1,000 mls @ 30 mls/hr 01/27/22 10:00 01/27/22 10:40 Lactated Ringers IV 30 mls/hr .Q24H YEHUDA Administration Quetiapine Fumarate 25 mg 01/27/22 09:55 01/28/22 11:48 Quetiapine 25 Mg Tablet PO 25 mg BID YEHUDA Administration Thyroid 15 mg 01/23/22 09:00 01/28/22 11:48 Thyroid 60 Mg Tablet PO 15 mg DAILY YEHUDA Administration Trazodone HCl 25 mg 01/25/22 21:00 01/27/22 20:45 Trazodone 50 Mg Tablet PO 25 mg BEDTIME YEHUDA Administration PFSH Acute PFSH: Medical History Adult onset hypothyroidism Heart murmur Mammogram normal 2014 Uterine fibroid Vitamin D deficiency Surgical History History of colonoscopy 2016 had colon tear and colon resection History of partial surgical removal of colon 2016 Family History Mother Hypertension Father Heart disease Myocardial infarction Social History Smoking and tobacco status: never smoked Second hand smoke exposure: No Smoking risk assessment/counseling performed?: No Alcohol intake: current Alcohol intake frequency: 0-2 Drinks per Day Desire information about alcohol rehabilitation?: No Counseling given: No Desire information about substance/drug rehabilitation?: No Counseling given: No Adopted: No Caregiver/support person: No Lives independently: Yes Household members: spouse Housing: House Marital status: Number of children: 2 service: No Current occupational status: retired Current occupational exposures/hazards: No History of recent travel: No Current gender identity: Female Vitals/I&O/Wt Last Vital Signs Temp 99.7 F H 01/28/22 11:57 Pulse 96 01/28/22 11:57 Resp 17 01/28/22 11:57 BP 134/85 01/28/22 11:57 Pulse Ox 93 01/28/22 11:57 O2 Del Method 01/27/22 20:14 01/27/22 01/28/22 01/28/22 22:59 06:59 14:59 Intake Total 690 / 1543 200 / 1743 350 / 350 Output Total 202 / 702 200 / 902 400 / 400 Balance 488 / 841 0 / 841 -50 / -50 Weight last 48 hrs Weight 143 lb 3.2 oz Physical Exam Const: COMMON NORMALS: average body habitus EXAM LIMITATIONS: altered mental status, behavioral limitations and physical limitations Resp: COMMON NORMALS: normal respiratory effort EFFORT & INSPECTION: Yes able to speak in complete sentences Data : 01/28/22 04:20 01/28/22 04:20 Micro: Microbiology 01/22/22 17:34 Blood Culture - Final Blood NO GROWTH AFTER 5 DAYS 01/22/22 17:31 Blood Culture - Final Blood NO GROWTH AFTER 5 DAYS 01/25/22 04:58 Urine Culture - Final Urine,Clean Catch A&P Assessment and plan (1) Uterine mass: I have spoken with the family. I plan to perform a hysteroscopy, dilation and curettage with myosure tomorrow. We need to get a tissue diagnosis from this mass and this is the best way to perform that. Risks, benefits and alternatives to procedure were discussed with the patient including but not limited to: pain, bleeding, infection, development of a blood clot or pulmonary embolism, damage to bowel, bladder, ureters, blood vessels, formation of scar tissue or even . . These are the most common complications, but there may be other, unforseen complications that could arise during surgery. The patient accepts these risks and desires to proceed. Status: Acute Coding Level of Care Code Acute Chief Informatics Officer for [facility] Diagnoses Uterine mass N85.8
[2022-01-28 14:01] LABS: Monoscreen Negative (Negative)
--- NOTE | 2022-01-28 14:07 | PM.PN ---
Subjective Subjective: febrile 100.5 tmax over last 24 hrs Continues to be confused and disoriented, only able to state her name at this time to me Per family continues to have visual hallucinations, appears more somnolent than previous days has started seroquel and trazodone as new medications Vitals/I&O/Wt Last Vital Signs Temp 99.7 F H 01/28/22 11:57 Pulse 96 01/28/22 11:57 Resp 17 01/28/22 11:57 BP 134/85 01/28/22 11:57 Pulse Ox 93 01/28/22 11:57 O2 Del Method 01/27/22 20:14 01/27/22 01/28/22 01/28/22 22:59 06:59 14:59 Intake Total 690 / 1543 200 / 1743 350 / 350 Output Total 202 / 702 200 / 902 400 / 400 Balance 488 / 841 0 / 841 -50 / -50 Weight last 48 hrs Weight 64.954 kg Physical Exam Narrative: General: No acute distress, AO x1 HEENT: PERRLA, pupils bilaterally equal and reactive, pallors not present Chest: Normal vesicular breath sounds, no added sounds, equal good air entry bilaterally CVS: S1-S2 regular, no murmurs, no tachycardia, no gallops, no rubs Abdomen: Soft, nontender, no organomegaly, bowel sounds present Neuro: orinted x 1-2, able to state name, does not know , repeats that she doesnt know in response to questions Data : 01/28/22 04:20 01/28/22 04:20 Micro: Microbiology 01/28/22 13:40 Blood Culture - Preliminary Blood SPECIMEN COLLECTED 01/28/22 13:45 Blood Culture - Preliminary Blood SPECIMEN COLLECTED 01/22/22 17:34 Blood Culture - Final Blood NO GROWTH AFTER 5 DAYS 01/22/22 17:31 Blood Culture - Final Blood NO GROWTH AFTER 5 DAYS 01/25/22 04:58 Urine Culture - Final Urine,Clean Catch A&P Assessment and plan (1) Fever: persistent fever with T max 100.5F Obtain CXR to evaluate for consolidation. CT chest to ascertain nature of pulmonary infiltrates partially visualized on CT abdomen. Check resp viral panel, tick panel, EBV and CMV serology, urine legionella AG No h/o animal bites or scratches, no h/o rash no h/o bird exposure, no exotic pets, no h/o consumption of unpasteurized produtcs, no h/o recurrent cold sores or shingles Lumbar puncture today to evalute for bacterial vs aseptic vs tick borne encephalitis COVID-[address] of the head unremarkable. Urine culture was repeated. So far without growth. Blood cultures so far negative. recheck today continue primaxin and vancomycin empirically for now presumptive trial of doxycycline 100mg BID for possible tick etiology as results of tick panel may take 7 days to return Status: Acute (2) Acute encephalopathy: Suspect acute metabolic encephalopathy from peristsent febrile state, possible underlying infection, source under evaluation Lumar puncture for encephalitis/meningitis assessment Status: Acute (3) Acute UTI: UTI appears less likely. Negative repeat urine culture. No obstructive uropathy noted on CT. Status: Inactive (4) Uterine mass: Findings on ultrasound with endometrial thickness 4.2 cm concerning for possible malignancy vs fibroid. She would need endometrial biopsy. This is planend for tomorrow with Dr. self Of note. family later also report that she is a [employer] and will not accept whole blood, with limitations on blood products. They inquire about blood saving strategies for surgery. Discussed with them that I am not sure what capabilities we have. They were going to discuss with Dr. Moreno at appointment time, however, as she is still here, please discuss with her regarding limitation on transfusion tomorrow as this was not yet known at the time of initial discussion. Potentially if blood saving procedure were not a possibility here, they would be agreeable to possibly undergo biopsy alone here, then other surgical procedure/hysterectomy at outside facility with blood saving capability again only if this were not available here. Status: Acute (5) Abnormal uterine bleeding (AUB): Pending outpatient gynecologic evaluation. Does not accept whole blood. Status: Inactive (6) Retroperitoneal lymphadenopathy: non specific at this time Status: Acute (7) Lung nodules: Discussed with her and family as above, non specific granulomas vs concern for possibility of metastatic disease. Will need follow-up. Status: Acute Plan Hypokalemia: Replaced. Normal magnesium. Hypothyroidism Attestations Medical Necessity Statement*: Lumbar puncture today, await results, ongoing iv abx, trial of doxycycline, persisting fever with unclear source Coding Level of Care Code Acute Senior Controls Technician for [facility] Diagnoses Fever R50.9 Acute encephalopathy G93.40 Acute UTI N39.0 Uterine mass N85.8 Abnormal uterine bleeding (AUB) N93.9 Retroperitoneal lymphadenopathy R59.0 Lung nodules R91.8
[2022-01-28 16:00] VITALS: BP 136/83; PULSE 92; RESP 16; TEMP 37.7; O2SAT 92
[2022-01-28 16:56] LABS: CSF Mononuclear # 0.123 10^3/uL (50-90); Mononuclear WBC CSF % 100 % (50-90); Polynuclear WBC CSF % 0 % (0-10); Red Blood Cell CSF 0 10^3/uL (0-0); White Blood Cell CSF 123 /uL (0-5)
[2022-01-28 17:10] LABS: Appearance CSF CLEAR (CLEAR); Color CSF COLORLESS (COLORLESS)
[2022-01-28 17:11] LABS: Pathology Referral Yes
[2022-01-28 17:47] LABS: Glucose CSF 59 mg/dL (40-70); Total Protein CSF 29 mg/dL (15-45)
[2022-01-28 18:10] LABS: Cyto Order Verification Order Verified
[2022-01-28] MEDS: doxycycline 100 MG in sodium chloride 0.9% (plus) 100 ML IV (18:58)
--- NOTE | 2022-01-28 19:40 | NUR.SHIFT ---
SHIFT SUMMARY: PT HAS HAD AN OKAY DAY FOR ME. SHE HAS BEEN PRETTY LETHARGIC AND SLOW TO RESPOND. DR SHARMA NOTIFIED OF THIS FINDING. LP WAS PERFORMED ON PT TODAY. PT HAS BEEN OKAY SINCE RETURNING FROM PROCEDURE. SHE IS RESTING IN BED. A NEW IV WAS PLACED IN THE PT BY LOSS PREVENTION COORDINATOR. DOXYCYCLINE STARTED ON PT. PT TOLERATING WELL THIS FAR. PT RESTING IN BED. FAMILY AT BEDSIDE. ALL QUESTIONS ANSWERED. REPORT TO CHAIM BLUNT.
[2022-01-28 20:00] VITALS: BP 117/74; PULSE 90; RESP 16; TEMP 37.6
[2022-01-28 23:59] VITALS: BP 136/84; PULSE 90; RESP 18; TEMP 37; O2SAT 92
[2022-01-29] VITALS (14 sets, daily range): BP systolic 107–158; BP diastolic 71–102; PULSE 89–105; RESP 16–20; TEMP 36.2–37.3; O2SAT 93–98
[2022-01-29] MEDS: doxycycline 100 MG in sodium chloride 0.9% (plus) 100 ML IV (05:35)
[2022-01-29] MEDS: lactated ringers 1,000 ML 30 ML IV (05:38)
--- NOTE | 2022-01-29 06:45 | P.ANESASSM_ITS ---
Pre-Anesthetic Assessment Height/Weight: Height 1.57 m Weight 64.954 kg Temp Pulse Resp BP Pulse Ox O2 Del Method 98.6 F 94 16 152/87 95 01/29/22 06:25 01/29/22 06:25 01/29/22 06:25 01/29/22 06:25 01/29/22 06:25 01/29/22 06:25 Preop Diagnosis: uterine mass Operation Date: 01/29/22 07:00 Proposed Procedures p Hysteroscopy w/ Myosure(Not Applicable) - Mirella Wisdom MD s Dilation And Curettage (D&C)(Not Applicable) - Mirella Wisdom MD Familial anesthetic complications: none Was Beta Jeff taken within 24 hours: N/A Was Clonidine taken within 24 hours: N/A Last intake: Intake Last Liquid Date 01/29/22 Last Liquid Time 00:00 Last Solid Date 01/29/22 Last Solid Time 00:00 Social No alcohol and No tobacco Exam alert and regular rate & rhythm Poor effort on lung exam no murmur auscultated Airway Submandibular: within normal limits Cervical ROM: within normal limits Mallampati: Class II Dentition: chipped Comments: Comments: Poor effort on airway exam History/ROS No significant complaints Pulmonary None reported CT Chest CT/CT chest wo con [id number] IMPRESSION: 1. Several prominent subcentimeter short axis mediastinal lymph nodes, nonspecific. 2. Multifocal pulmonary nodules throughout both lung [place] measuring up to 6.1 mm, concerning for diffuse metastatic disease. 3. Trace bilateral pleural effusions. ? CV/HEM Anemia Murmur Hx of fibroid Na 135 K 3.4 Endometrial thickening Hepatic Elevated alk phos and lactate dehydrogenase GI None reported Metabolic Thyroid Disease [facility] None reported Neuropsych Acute encephalopathy Negative CT Head Anesthetic Plan ASA status: 3 Anesthesia: Anesthesia Evaluation and General Other: History, plan, and consent discussed with patient's . We discussed risk and benefits of general anesthesia including PONV, sore throat (sometimes severe), corneal abrasion, positioning and peripheral nerve injuries, life threatening allergic reaction, post operative ICU admission requiring prolonged intubation, stroke, heart attack, , and rare incidences of recall. Patient consents to proceed with general anesthesia. Risk of > 500 ml blood loss (7ml/kg in children): No Other Pertinent Information Muslim does not consent to blood, accepts albumin. Medications/Allergies Home Medications Medication Instructions Recorded Confirmed Last Taken Type cholecalciferol (vitamin D3) 25 5,000 unit PO DAILY 09/07/19 01/22/22 01/22/22 History mcg (1,000 unit) tablet (Vitamin D3) thyroid (pork) 15 mg tablet 15 mg PO DAILY #90 tabs 10/29/21 01/22/22 01/22/22 Rx ([place] Thyroid) ciprofloxacin HCl 250 mg tablet 250 mg PO BID 5 days #10 tabs 01/20/22 01/22/22 01/22/22 Rx (Cipro) Whole Food Multi Vitamin Liq. 30 ml PO DAILY 01/22/22 01/22/22 01/22/22 History Allergies Allergy/AdvReac Type Severity Reaction Status Date / Time Penicillins Allergy Rash Verified 01/22/22 17:30 Whole blood AdvReac Unknown Unknown Uncoded 01/24/22 21:06 Current Medications Generic Name Dose Route Start Last Admin Trade Name Freq PRN Reason Stop Dose Admin Acetaminophen 650 mg 01/22/22 23:08 01/28/22 19:22 Acetaminophen 325 Mg Tablet PO 650 mg Q6H PRN Administration Mild/Mod Pain Or Temp >/= 101 Imipenem/Cilastatin Sodium 500 100 mls @ 200 mls/hr 01/23/22 13:00 01/29/22 02:16 mg/ Dextrose IV 200 mls/hr Q6H YEHUDA Administration Protocol Vancomycin HCl 1,000 mg/ 250 mls @ 250 mls/hr 01/27/22 09:00 01/28/22 21:42 Sodium Chloride IV 250 mls/hr Q12H YEHUDA Administration Lactated Ringer's 1,000 mls @ 30 mls/hr 01/27/22 10:00 01/29/22 05:38 Lactated Ringers IV 30 mls/hr .Q24H YEHUDA Administration Doxycycline Hyclate 100 mg/ 100 mls @ 100 mls/hr 01/28/22 14:30 01/29/22 05:35 Sodium Chloride IV 100 mls/hr Q12H YEHUDA Administration Protocol Quetiapine Fumarate 25 mg 01/27/22 09:55 01/28/22 18:49 Quetiapine 25 Mg Tablet PO Not Given BID YEHUDA Thyroid 15 mg 01/23/22 09:00 01/28/22 11:48 Thyroid 60 Mg Tablet PO 15 mg DAILY YEHUDA Administration Trazodone HCl 25 mg 01/25/22 21:00 01/27/22 20:45 Trazodone 50 Mg Tablet PO 25 mg BEDTIME YEHUDA Administration [facility] Anesthesia Medical History Adult onset hypothyroidism Heart murmur Mammogram normal 2014 Uterine fibroid Vitamin D deficiency Surgical History History of colonoscopy 2016 had colon tear and colon resection History of partial surgical removal of colon 2016 Family History Mother Hypertension Father Heart disease Myocardial infarction Social History Smoking and tobacco status: never smoked Second hand smoke exposure: No Smoking risk assessment/counseling performed?: No Alcohol intake: current Alcohol intake frequency: 0-2 Drinks per Day Desire information about alcohol rehabilitation?: No Counseling given: No Desire information about substance/drug rehabilitation?: No Counseling given: No Adopted: No Caregiver/support person: No Lives independently: Yes Household members: spouse Housing: House Marital status: Number of children: 2 service: No Current occupational status: retired Current occupational exposures/hazards: No History of recent travel: No Current gender identity: Female Data Anesthesia : 01/28/22 04:20 01/28/22 04:20 Short CBC 01/28/22 Range/Units 04:20 WBC 11.5 H (4.0-10.0) 10^3/uL Hgb 10.6 L (11.5-15.3) g/dL Hct 32.2 L (37.0-47.0) % MCV 89.2 (81-99) fl Plt Count 161 (130-400) 10^3/cmm Neut % (Auto) 73.8 % Neut # (Auto) 8.51 H (1.8-7.7) 10^3/uL BMP 01/28/22 04:20 Sodium 135 L Potassium 3.4 L Chloride 98 Carbon Dioxide 25 BUN 22 Creatinine 0.4 L Glucose 123 H Calcium 8.3 L Liver Function 01/28/22 Range/Units 04:20 Total Bilirubin 0.4 (0.15-1.2) mg/dL AST 15 (0-32) U/L ALT 14 (0-33) U/L Alkaline Phosphatase 112 H (35-105) IU/L Albumin 3.1 L (3.5-5.2) g/dL Microbiology 01/28/22 15:43 Gram Stain - Final Cerebrospinal Fluid Cryptococcal Antigen - Final 01/28/22 15:43 Bacterial Antigens - Final Cerebrospinal Fluid 01/28/22 13:40 Blood Culture - Preliminary Blood SPECIMEN COLLECTED 01/28/22 13:45 Blood Culture - Preliminary Blood SPECIMEN COLLECTED Cardiac Studies: No Data to Display
[2022-01-29] MEDS: sodium chloride 0.9% 1,000 ML 30 ML IV ×2 (06:54→08:59)
--- NOTE | 2022-01-29 07:05 | W.PM.OPSUD ---
Surgery/Procedure H&P Update DATE OF PROCEDURE: January 29, 2022 DATE H&P PERFORMED: 01/28/22 H&P UPDATE INFORMATION: I have reviewed H&P completed within last 30 days, I have examined patient prior to procedure and No changes to prior documentation PREOP DIAGNOSIS: uterine mass PLANNED PROCEDURE: Operation Date: 01/29/22 07:00 Proposed Procedures p Hysteroscopy w/ Myosure(Not Applicable) - Mirella Wisdom MD s Dilation And Curettage (D&C)(Not Applicable) - Mirella Wisdom MD Related Problem List Diagnoses (1) Uterine mass:
--- NOTE | 2022-01-29 08:08 | P.OP_ITS ---
Operative Report Date of procedure: January 29, 2022 Pre-op diagnosis: Preop Diagnosis uterine mass Post-op diagnosis: same with vaginal mass, removed Post-op findings: 7 week sized uterus with large endometrial polyp left sided vaginal mass in the skenes area Procedure done: hysteroscopy, D&C with myosure excision of vaginal mass Specimens removed/disposition: endometrial tissue, vaginal mass to pathology Surgeon: Mirella Wisdom Anesthesia: General Estimated blood loss (mL): 5 IV fluids (mL): 500 Complications: none Condition: stable Disposition: floor Procedure: The patient was taken to the operating room where monitored anesthesia was administered and to be adequate. She was prepped and draped in the normal sterile fashion in the dorsal lithotomy position in [facility]. A weighted speculum was placed into the vagina and the anterior lip of the cervix grasped with a single-tooth tenaculum. There was a large vaginal mass present in the left skenes area. This was clamped, cut and removed. A single stitch was placed for good hemostasis. The uterus was sounded to 7 cm. The cervix was dilated to 16 Greek. The hysteroscope was advanced into the endometrial cavity. There was a large polypoid mass visualized. The MyoSure device was activated and the tissue was removed. Pictures were taken pre and post procedure. All instruments were removed. The patient tolerated the procedure well. Sponge lap and needle counts were correct x3. She was taken to the recovery room in stable condition.
--- NOTE | 2022-01-29 08:34 | PC.SOCIAL ---
IMM UPDATED IMM dated and initialed and copy given to patient
[2022-01-29] MEDS: vancomycin 1,000 MG in sodium chloride 0.9% 250 ML 250 MG IV (09:04)
--- NOTE | 2022-01-29 10:27 | MR_ITS ---
WS: [id number] MRI HEAD WITH CONTRAST TECHNIQUE: Sagittal T1, T2 axial, T2 axial FLAIR, axial susceptibility weighted imaging, axial diffus ion weighted images, and coronal T2 images were obtained. Pre and post-T1 axial and post T1 coronal i mages. ADC and FSPGR images. CLINICAL INFORMATION: worsening mental status changes COMPARISON: CT January 25, 2022 FINDINGS: No evidence restricted diffusion to suggest acute ischemia. Ventricular system and basal cisterns are patent. Mild small vessel changes. Mild parenchymal volume loss. Normal posterior fossa. Normal vasc ular flow voids at the skull base. No extra-axial fluid collections. No evidence of mass or mass effe ct. Paranasal sinuses are well aerated. Mild mucosal thickening ethmoid air cells. Mastoid air cells well aerated. No hemosiderin on susceptibly weighted images. Normal optic chiasm and pituitary infundibul um. Mild symmetric atrophy temporal lobes and hippocampal formations. No abnormal intracranial enhancement. No evidence of enhancing intracranial metastatic disease. No ev idence of mass or mass effect. Normal dural venous sinuses. MR/MR head wo/w con [id number] IMPRESSION: 1. No evidence of restricted diffusion to suggest acute ischemia. 2. Mild small vessel changes with mild parenchymal volume loss. 3. No abnormal gadolinium enhancement. No evidence of enhancing intracranial m etastatic disease. 4. No acute intracranial findings.
[2022-01-29 12:17] LABS: Lyme AB Screen <0.90 index
[2022-01-29] MEDS: gadobenate dimeglumine 20 mL vial IV (12:38)
[2022-01-29 13:08] LABS: Cytomegalovirus Antibody (IGG) <0.60 U/mL; Cytomegalovirus Antibody (IGM) <30.00 AU/mL
--- NOTE | 2022-01-29 14:20 | P.PN_ITS ---
Subjective Subjective: T-max 99.1 Fahrenheit today. Family is at bedside, reports that patient was assisted last night with 2 nurses and was able to walk to the bathroom with assistance. However she appears to be more somnolent as of this morning even prior to going to the operating room. Her trazodone and Seroquel w ere both held overnight. At this present time patient is somnolent, wakes up to calling name and follow some simple commands, however does not answer questions for orientation. She is able to follow directions to my fingers, elevate bilateral upper extremities, however unable to hold it up for more than a few minutes at a time. Does not lift bilateral lower extremity on command. Review of medications shows that patient received fentanyl and propofol in the OR this morning at 6:30 AM which could be contributing to somnolence this morning, however RN at bedside notes that overnight she had trouble swallowing and appeared more disoriented than the morning of January 28. Lumbar puncture was able to be completed yesterday. Cell count from the LP is at 125, predominant mononuclear.Glu 59 (serum glu N/a from same time, am value at 123, 47% CSF:serum). Normal Protein. Gram stain with WBCs, no organisms, CX pending. Cytology pending. s/p OR today with ELECTRICAL POWER STATION TECHNICIAN: OR findings with large vaginal mass present in the left skenes area. There was a large polypoid mass visualized intrauterine on hyster oscope. Path results pending. Vitals/I&O/Wt Last Vital Signs Temp 99.1 F 01/29/22 13:42 Pulse 105 H 01/29/22 13:42 Resp 20 H 01/29/22 13:42 BP 138/83 01/29/22 13:42 Pulse Ox 93 01/29/22 13:42 O2 Del Method 01/29/22 13:42 O2 Flow Rate 6 01/29/22 08:08 01/28/22 01/29/22 01/29/22 22:59 06:59 14:59 Intake Total 320 / 1507.5 0 / 1507.5 962.5 / 962.5 Output Total 5 / 5 Balance 320 / 1107.5 0 / 1107.5 957.5 / 957.5 Physical Exam Narrative: General: lying in bed, confused HEENT: PERRLA, pupils bilaterally equal and reactive Chest: Normal vesicular breath sounds CVS: S1-S2 regular, no murmurs, no tachycardia, no gallops, no rubs Abdomen: Soft, non distended Neuro: confused, lethargic, follows few commands as noted above, Data : 01/28/22 04:20 01/28/22 04:20 Micro: Microbiology 01/28/22 13:40 Blood Culture - Preliminary Blood NEGATIVE TO DATE 01/28/22 13:45 Blood Culture - Preliminary Blood NEGATIVE TO DATE 01/28/22 11:05 Legionella Urinary Antigen - Final Urine Catheterized 01/28/22 15:43 Gram Stain - Final Cerebrospinal Fluid CSF Culture - Preliminary Cryptococcal Antigen - Final 01/28/22 15:43 Bacterial Antigens - Final Cerebrospinal Fluid A&P Assessment and plan (1) Fever: persistent fever x 10 days duration, tmax over last 24 hrs at 99.1F With acute delirium and fever, concern for meningoencephalitis for which LP performed on 01/28 (of note patient on imipenem,vancomycin since 01/23) Cell count 125, predominnat mononuclear infiltrate , negative gram stain, multiple WBC noted. Cx pending, negative thus far. Glu 59. Protein WNL. negative crytococcus Ag. negative bacterial Ag. Difficult to interpret CSF results on abx. Findings may be indicative of partially treated bacterial meningitis, viral meningitis, neuroborreliosis, less likely neurosyphilis (lack of antecedednt risk factors, acute presentation over 10 days) or malignancy. Will send out bacterial PCR multiplex panel in CSF. CSF lyme AB pending, presumptive started on doxycycline 100mg iv q12h for possible tick borne encephalitis. Pending HSV/VZV DNA. If no significant change in mentation may consider trial of empiric acyclovir. No h/o recurrent cold sores or recent herpetic rash. No h/o shingles. No h/o recent live viral vaccination. Patient not immunocompromised, less likely to be viral encephalitis from EBV,CM or HHV. Cytolgy from CSF pending. Patient with CT supicious for diffuse metastatic disease ??primary being vaginal vs endometrial malignancy. Underwent biopsy with ELECTRICAL POWER STATION TECHNICIAN today. paraneoplastic enecaphalitis may be a consideration however less likely to explain fever. Malinancy w/up is still ongoing. Other pertinent infectious w/up: CXR with atelactasis, CT chest with Multifocal pulmonary nodules throughout both lung lebron measuring up to 6.1 mm, concerning for diffuse metastatic disease. pending resp viral panel, tick panel, EBV and CMV serology negative urine legionella AG No h/o animal bites or scratches, no h/o rash no h/o bird exposure, no exotic pets, no h/o consumption of unpasteurized produtcs COVID-[address] of the head unremarkable. MRI to be obtained today given worsening mentation. Urine culture was repeated. So far without growth. Blood cultures so far negative. Fungal w/up incl coccidiodes ab, blastomyces, histoplasma urine ag were previously sent out. D/c vancomycin as no evidence of resistant GPCs Change imipenem to ceftriaxone 2g iv q12h- no evidence of resistant gram negatives thus far presumptive trial of doxycycline 100mg BID for possible tick etiology as results of tick panel may take 7 days to return neurology consult Status: Acute (2) Acute encephalopathy: as above, undergoing evlauation Status: Acute (3) Acute UTI: UTI appears less likely. Negative repeat urine culture. No obstructive uropathy noted on CT. Status: Inactive (4) Uterine mass: Findings on ultrasound with endometrial thickness 4.2 cm concerning for possible malignancy vs fibroid. s/p endometrial biopsy today Of note. family later also report that she is a Yarsanism and will not accept whole blood, with limitations on blood products. They inquire about blood saving strategies for surgery. Status: Acute (5) Abnormal uterine bleeding (AUB): Pending outpatient gynecologic evaluation. Does not accept whole blood. Status: Inactive (6) Retroperitoneal lymphadenopathy: non specific at this time Status: Acute (7) Lung nodules: Discussed with her and family as above, non specific granulomas vs concern for possibility of metastatic disease. Will need follow-up. Status: Acute Plan Hypokalemia: Replaced. Normal magnesium. Hypothyroidism: TSH currently in range at 0.49 Attestations Medical Necessity Statement*: persisting encephalopathy, source under evaluation Coding Level of Care Code Acute L[employer] Tender for [facility] Diagnoses Fever R50.9 Acute encephalopathy G93.40 Acute UTI N39.0 Uterine mass N85.8 Abnormal uterine bleeding (AUB) N93.9 Retroperitoneal lymphadenopathy R59.0 Lung nodules R91.8
--- NOTE | 2022-01-29 14:27 | ANE.PACU2 ---
Inpatient post-anesthesia follow up: Airway intact: Yes Vital signs: Temperature 99.1 F Pulse Rate 105 Respiratory Rate 20 Blood Pressure 138/83 Pulse Oximetry 93 Oxygen Delivery Me thod Room Air Oxygen Flow Rate 6 Fraction of Inspir ed Oxygen Hydration adequate: Yes Nausea and vomiting: No Pain level: 4 Mental status: Baseline
[2022-01-29 14:38] LABS: Glucose Point of Care 134 mg/dL (70-110)
[2022-01-29] MEDS: acetaminophen 325 mg Tablet 650 MG PO (17:10)
--- NOTE | 2022-01-29 19:19 | PM.CONSULT ---
Providers/Reason For Consult Consulting Physician/Specialty*: Monica Leigh M.D. Reason for Consult*: encephalopathy Attending Physician: Monica Leigh MD Primary Care Provider: RELL Godoy History of Present Illness History of Present Illness Oanh Murray is a 71 year old woman with rapid deterioration in neurologic state and a normal MRI performed this afternoon. She saw her primary care provider in November complaining of several weeks of vaginal bleeding. She came to the emergency department at the end of December on 01/20 with a fever for a day and a headache. She was still experiencing vaginal bleeding. Her temperature was 101.6 she was mildly nauseated. Her white blood cell count was not elevated and her CBC was normal. Liver enzymes were not elevated. She was positive for nitrates and thought to have a UTI so she was sent home on Cipro. Her SARS-CoV-2 antigen was negative. She returned 01/22/2022 with continued fever and increasing confusion. She had developed suprapubic discomfort and costovertebral angle tenderness. She was having trouble tracking. Her urine culture was negative. Her temperature in the ER was 100.7 and her white count was only slightly elevated at 10.7. Again her CBC was normal and CMP was unremarkable. Repeat COVID testing was negative. Her antibiotics were broadened to Primaxin. She continued to have some mild confusion off and on. She initially defervesced but on 01/24 she spiked to 103 with no new symptoms. She fell on the night of the and by the morning she was complaining about bodies in the trash bin and that she was being poisoned by staff. On 01/26 she seemed a little bit sluggish but was no longer paranoid and she was calm. On 01/27 she told her son that she thought his face was melting and she was frightened when she looked down at her thigh because she thought it was bleeding. She was walking independently. She was seen by Dr. Wisdom for a uterine mass and thickening of the endometrium. 01/28 her temperature was 100.5 maximum but she was more confused and started seeing visual hallucinations. She was more somnolent. She was started on Seroquel and trazodone. Spinal fluid showed monocytosis with 125 cells, normal glucose and protein. 01/29 she was taken to the OR and anesthesia was administered for hysteroscopy and D&C with excision of vaginal mass and endometrial tissue. The surgery was performed at 8:[address] Leigh called me a little later in the day complaining that the patient was even more somnolent and would not answer questions. She could not sustain elevation of the arms. She had received fentanyl and propofol at 6:30 in the morning but nursing notes indicated that she had trouble swallowing even last night before she received any sedation. We agreed that the patient should have stat MRI of the brain and that was performed before noon. The study is normal and read by Dr. Cole, reviewed by me. This patient has no remarkable health history at all. She has been on thyroid replacement for hypothyroidism and follows closely with Pavel Gupta. Her son and [id number] are in the room. They indicate that the last time the patient was able to talk with them was 2 days ago. Most she has been able other since then would be a single word. She seemed to want to talk today about was unable. She has not been able to eat or swallow. She has been crying. She is a Zoroastrianism. Review of Systems Const: Reports: fever(s), fatigue and malaise Eyes: Denies: change in vision Card: Denies: chest pain Resp: Reports: other ( throughout both lung lebron measuring up to 6.1 mm) GI: Reports: abdominal pain Skin/Breast: Denies: rash Neuro: Reports: headache(s), weakness in extremities, difficulty walking, confusion, behavioral changes, difficulty communicating thoughts and other (Her son took a video of rhythmic hand movements she made during music); Denies: seizure-like activity Psych: Denies: depression (She has never had she has never been depressed) or memory loss Medications/Allergies Home Medications Medication Instructions Recorded Confirmed Last Taken Type cholecalciferol (vitamin D3) 25 5,000 unit PO DAILY 09/07/19 01/22/22 01/22/22 History mcg (1,000 unit) tablet (Vitamin D3) thyroid (pork) 15 mg tablet 15 mg PO DAILY #90 tabs 10/29/21 01/22/22 01/22/22 Rx (Donnelly Thyroid) ciprofloxacin HCl 250 mg tablet 250 mg PO BID 5 days #10 tabs 01/20/22 01/22/22 01/22/22 Rx (Cipro) Whole Food Multi Vitamin Liq. 30 ml PO DAILY 01/22/22 01/22/22 01/22/22 History Allergies Allergy/AdvReac Type Severity Reaction Status Date / Time Penicillins Allergy Rash Verified 01/22/22 17:30 Whole blood AdvReac Unknown Unknown Uncoded 01/24/22 21:06 Current Medications Generic Name Dose Route Start Last Admin Trade Name Freq PRN Reason Stop Dose Admin Acetaminophen 650 mg 01/22/22 23:08 01/29/22 17:10 Acetaminophen 325 Mg Tablet PO 650 mg Q6H PRN Administration Mild/Mod Pain Or Temp >/= 101 Lactated Ringer's 1,000 mls @ 30 mls/hr 01/27/22 10:00 01/29/22 05:38 Lactated Ringers IV 30 mls/hr .Q24H YEHUDA Administration Doxycycline Hyclate 100 mg/ 100 mls @ 100 mls/hr 01/29/22 14:30 01/29/22 15:03 Dextrose IV Infused Q12H YEHUDA Infusion Protocol Ceftriaxone Sodium 2,000 mg/ 50 mls @ 100 mls/hr 01/29/22 16:00 01/29/22 18:00 Dextrose IV Infused Q12H YEHUDA Infusion Protocol Quetiapine Fumarate 25 mg 01/27/22 09:55 01/29/22 09:17 Quetiapine 25 Mg Tablet PO Not Given BID YEHUDA Thyroid 15 mg 01/23/22 09:00 01/29/22 09:18 Thyroid 60 Mg Tablet PO Not Given DAILY YEHUDA Trazodone HCl 25 mg 01/25/22 21:00 01/27/22 20:45 Trazodone 50 Mg Tablet PO 25 mg BEDTIME YEHUDA Administration PFSH Acute PFSH: Medical History Adult onset hypothyroidism Heart murmur Mammogram normal 2014 Uterine fibroid Vitamin D deficiency Surgical History History of colonoscopy 2016 had colon tear and colon resection History of partial surgical removal of colon 2016 Family History Mother Hypertension Father Heart disease Myocardial infarction Social History Smoking and tobacco status: never smoked Second hand smoke exposure: No Smoking risk assessment/counseling performed?: No Alcohol intake: current Alcohol intake frequency: 0-2 Drinks per Day Desire information about alcohol rehabilitation?: No Counseling given: No Desire information about substance/drug rehabilitation?: No Counseling given: No Adopted: No Caregiver/support person: No Lives independently: Yes Household members: spouse Housing: House Marital status: Number of children: 2 service: No Current occupational status: retired Current occupational exposures/hazards: No History of recent travel: No Current gender identity: Female Vitals/I&O/Wt Last Vital Signs Temp 98.7 F 01/29/22 15:35 Pulse 101 H 01/29/22 15:35 Resp 20 H 01/29/22 15:35 BP 147/83 01/29/22 15:35 Pulse Ox 95 01/29/22 15:35 O2 Del Method 01/29/22 15:35 O2 Flow Rate 6 01/29/22 08:08 01/29/22 01/29/22 01/29/22 06:59 14:59 22:59 Intake Total 0 / 1507.5 962.5 / 962.5 341.5 / 1304.0 Output Total 5 / 5 Balance 0 / 1107.5 957.5 / 957.5 341.5 / 1299.0 Physical Exam Narrative: She looks much younger than age. MENTAL STATUS EXAM: She would not follow simple commands such as close your eyes, open your mouth . She had waxy flexibility when I hold her arm up she would keep it up for short time (only from the elbow). She did not follow any commands but after I finished the neurologic exam and started talking with her son and [id number] she continued to pay attention and when I took her hand and squeezed it she smiled at me. When I asked her to say her name she made a sound although her name was not distinguishable from it. As I was watching the video that her son did of her hand for treatments she began to demonstrate those hand movements for me. Cranial nerves visual lebron full to threat. Eye movements full and her vision is good enough that she can fix and follow my face. She closed her eyes and opened her eyes but not to command. She could smile slightly. Sensory: She withdrew from noxious stimulus in the foot when I tested her Babinski. Motor: She has increased tone with cogwheel rigidity. She did not voluntarily contract any muscles except when I lifted the right arm she kept it elevated from the elbow and kept her fingers outstretched somewhat. She did not grasp to command. Deep tendon reflexes 2+ throughout. Plantar response flexor on both sides. HEENT no rash. Normocephalic. Conjunctiva not injected. Neck: No more rigid than any of her other muscles. Her neck is as rigid as her upper extremities and lower extremities. No palpable nodes. Chest: Clear to auscultation. Cardiovascular: S1 and S2 normal without murmur or gallop. Extremities: No rash. MRI of the brain with and without contrast shows no abnormalities. Cerebrospinal fluid from 01/28/2022 showing 123 white cells, 100% mononuclear. Glucose 59, protein 29. Pending Lyme, [place] encephalitis CBC: White count peaked at 14.6 on 01/27. She has been a little hyponatremic but nothing significant. Albumin depressed at 3.1. TSH normal. B12 was normal on 04/24/2021 (390) Data : 01/28/22 04:20 01/28/22 04:20 Micro: Microbiology 01/28/22 13:40 Blood Culture - Preliminary Blood NEGATIVE TO DATE 01/28/22 13:45 Blood Culture - Preliminary Blood NEGATIVE TO DATE 01/28/22 11:05 Legionella Urinary Antigen - Final Urine Catheterized 01/28/22 15:43 Gram Stain - Final Cerebrospinal Fluid CSF Culture - Preliminary Cryptococcal Antigen - Final 01/28/22 15:43 Bacterial Antigens - Final Cerebrospinal Fluid A&P Assessment and plan (1) Acute encephalopathy: 71-year-old woman who presented with high fever and mild encephalopathy. Over the course of several days she proceeded to become more obtunded, paranoid and then mute and somewhat rigid. She may have metastatic cancer as she has retroperitoneal lymphadenopathy and multiple nodules in the chest with a large uterine mass pending results of biopsy. Based on her diffusely abnormal mental status, abnormal muscle tone and CSF pleocytosis with normal MRI of the brain I think there is a high likelihood that this is an autoimmune or paraneoplastic encephalitis. Although I think we should send antibodies, that testing will require weeks for diagnosis. Both serum and CSF antibodies should be sent but diagnosis will take time. Up-to-date summary treatment approach from the office recommend not waiting for immunosuppressive therapy to make a definitive diagnosis. Diagnostic criteria for autoimmune limbic encephalitis includes 1. Rapid progression of working memory deficit, seizures or psychiatric symptoms (paranoia in this case) 2. Abnormal brain MRI (not met but brain MRI normal in a significant number of patients early on) 3. CSF pleocytosis or EEG abnormal 4. Reasonable exclusion of other causes. These criteria are from Lancet neurology 2016 15: 391. Clinical approach to diagnosis of autoimmune encephalitis Based upon these findings I think we should treat her with high-dose steroids for 5 days 1 g of Solu-Medrol per day. Discussed with Dr. Dupree and initiated. This plan was discussed with the patient and her son and [id number]. If steroids fail, IVIG should be considered. This may be a slight problem since she is Zoroastrianism. IVIG is a blood product but I asked her son to do some investigating ahead of time as many individuals would choose this partial blood product as it does not contain any red blood cells. Appropriate antibodies should include anti-Hu (lalita-1), mGluR5, NMDA,SOPHIA. Recommend treat now with steroids, and if necessary will obtain more spinal fluid for these antibodies. Status: Acute (2) Lung nodules: Status: Acute (3) Retroperitoneal lymphadenopathy: Status: Acute Coding Level of Care Code Acute Web Site Specialist for [facility] Diagnoses Acute encephalopathy G93.40 Lung nodules R91.8 Retroperitoneal lymphadenopathy R59.0
[2022-01-29] MEDS: trazodone 50 mg Tablet 25 MG PO (21:34)
[2022-01-30] VITALS (7 sets, daily range): BP systolic 135–179; BP diastolic 79–102; PULSE 78–122; RESP 16–22; TEMP 36.3–37.1; O2SAT 93–104
[2022-01-30] MEDS: acetaminophen 325 mg Tablet 650 MG PO ×3 (01:49→20:01)
[2022-01-30 06:18] LABS: Basophils % 0.2 %; Hematocrit 33.6 % (37.0-47.0); Hemoglobin 11.1 g/dL (11.5-15.3); Lymphocytes # 1.4 10^3/uL (0.8-4.8); Lymphocytes % 11.9 %; Mean Corpuscular Hemoglobin 29.6 pg (28.0-34.0); Mean Corpuscular Volume 89.6 fl (81-99); Mean Platelet Volume 12.3 fL (7.4-10.4); Monocytes # 0.2 10^3/uL (0.2-0.9); Monocytes % 1.8 %; Neutrophils # 9.86 10^3/uL (1.8-7.7); Neutrophils % 85.4 %; Nucleated Red Blood Cells % 0 %; Platelet Count 205 10^3/cmm (130-400); Red Blood Count 3.75 10^6/uL (4.1-5.3); Red Cell Distribution Width 12.8 % (12.1-15.1); White Blood Count 11.6 10^3/uL (4.0-10.0)
[2022-01-30 06:37] LABS: Alanine Aminotransferase 10 U/L (0-33); Albumin Level 3.1 g/dL (3.5-5.2); Alkaline Phosphatase 110 IU/L (35-105); Anion Gap 19.4 (5-19); Aspartate Amino Transferase 16 U/L (0-32); Blood Urea Nitrogen 28 mg/dL (8-23); Calcium 8.5 mg/dL (8.5-10.5); Carbon Dioxide 22 mmol/L (22-29); Chloride 100 mmol/L (98-107); Globulin 2.2 g/dL (1.3-4.6); Glucose 181 mg/dL (65-115); Osmolality Calculated 296 mOsm/kg (285-295); Potassium 3.4 mmol/L (3.5-5.1); Sodium 138 mmol/L (136-145); Total Bilirubin 0.3 mg/dL (0.15-1.2); Total Protein 5.3 g/dL (6.6-8.7)
--- NOTE | 2022-01-30 07:42 | PC.NURSE ---
Addendum entered by Jenny Bravo RN 01/30/22 18:12: Patient mentation has improved throughout shift, patient was able to get into wheelchair to go to procedure, AAOx2 and able to follow commands and answer questions appropriately. Patient had elevated BP and HR early in shift with some repetitive copying of words and appeared in pain. Physician was notified with orders placed and carried out. Patient has responded very well. Patient is now smiling and carrying on conversations with family and this nurse. Family remains at bedside, rader in place and patent with rader care performed. Patients bedding changed and pad changed every few hours, patient still has some bleeding from procedure yesterday but is slowing down tremendously. Room clean and clutter free with call light in reach. Will report to oncoming nurse at shift change at bedside. No needs at this time. Original Note: Patient resting in bed with HOB elevated approx. 45 degrees, family at bedside, room clean and clutter free and call light in reach. Patient has many blankets piled on top of her and around of her. This nurse removed some blankets as patients skin was moist from sweat. Patient awake but remains verbally unresponsive. Patient was able to wiggle fingers and toes yesterday with a weak hot die press operator bilaterally. Today patient would not squeeze my fingers or wiggle her toes. This nurse applied pressure to points and did get response that way. Patient had slow control drift to BUE. Patient would not stick out tongue or raise eye brows. She had slow tracking of eyes. Family states they will remain at bedside throughout shift. This nurse will continue to monitor.
[2022-01-30] MEDS: thyroid 60 mg Tablet 15 MG PO (08:44)
[2022-01-30] MEDS: lactated ringers 1,000 ML 30 ML IV (08:45)
[2022-01-30 10:56] LABS: C Reactive Protein 74.8 mg/L (0.0-4.9); Erythrocyte Sedimentation Rate 15 mm/hr (0-15)
--- NOTE | 2022-01-30 11:42 | P.PN_ITS ---
Subjective Subjective: Family reports that patient had been more alert and awake this morning. She was smiling to command. Said a few words in conversation. Was able to state her name correctly. Called her son by the correct name. Was also able to swallow her medication mixed with pudding. She was evaluated by neurology last evening and started on high-dose steroids due to suspicion for paraneoplastic encephalitis. MRI performed yesterday was without any evidence of intracranial metastatic involvement. No leptomeningeal enhancement was noted. She has been afebrile since the evening of January 28, 2022. Stable leukocytosis. Planned for EEG today. Vitals/I&O/Wt Last Vital Signs Temp 98.2 F 01/30/22 07:30 Pulse 105 H 01/30/22 07:30 Resp 18 01/30/22 07:30 BP 164/95 01/30/22 07:30 Pulse Ox 95 01/30/22 07:30 O2 Del Method 01/30/22 07:30 O2 Flow Rate 6 01/29/22 08:08 01/29/22 01/30/22 01/30/22 22:59 06:59 14:59 Intake Total 341.5 / 1304.0 408 / 1712.0 813.5 / 813.5 Output Total 400 / 405 Balance 341.5 / 1299.0 8 / 1307.0 813.5 / 813.5 Physical Exam Narrative: General: No acute distress, AO x1 HEENT: PERRLA, pupils bilaterally equal and reactive, pallors not present Chest: Normal vesicular breath sounds CVS: S1-S2 regular, no murmurs, no tachycardia, no gallops, no rubs Abdomen: Soft, nontender, no organomegaly, bowel sounds present Data : 01/30/22 05:59 01/30/22 05:59 Other Labs: MR/MR head wo/w con [id number] IMPRESSION: ? 1.? No evidence of restricted diffusion to suggest acute ischemia. 2.? Mild small vessel changes with mild parenchymal volume loss. 3.? No abnormal gadolinium enhancement. No evidence of enhancing intracranial metastatic disease. 4.? No acute intracranial findings. ? Micro: Microbiology 01/28/22 13:40 Blood Culture - Preliminary Blood NEGATIVE TO DATE 01/28/22 13:45 Blood Culture - Preliminary Blood NEGATIVE TO DATE 01/28/22 11:05 Legionella Urinary Antigen - negative Urine Catheterized 01/28/22 15:43 Gram Stain - Final Cerebrospinal Fluid CSF Culture - Preliminary no growth Cryptococcal Antigen - negative Urine Culture Final 01/27/22-932 NO GROWTH AT 48 HOURS Urine Culture Preliminary (changed) 01/26/22-1006 NO GROWTH AT 18-24 HOURS A&P Assessment and plan (1) Fever: persistent fever x 10 days duration,currently afberile since evening of 01/28 Status: Acute (2) Acute encephalopathy: With acute delirium and fever, concern for meningoencephalitis for which LP performed on 01/28 (of note patient on imipenem,vancomycin since 01/23) Cell count 125, predominant mononuclear infiltrate , negative gram stain, multiple WBC noted. Cx pending, negative thus far. Glu 59. Protein WNL. negative crytococcus Ag. negative bacterial Ag. Difficult to interpret CSF results on abx. Findings may be indicative of pa rtially treated bacterial meningitis, viral meningitis, neuroborreliosis, less likely neurosyphilis (lack of antecedednt risk factors, acute presentation over 10 days) or malignancy vs paraneoplastic encephalitis. 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 Consideration for IvIg if fails to improve if compatible with JW beliefs. Pertinent infectious meningoencephalitis w/up: Cell count 125, predominant mononuclear infiltrate , negative gram stain, multiple WBC noted. Cx negative thus far. Glu 59. Protein WNL. negative crytoc occus Ag. negative bacterial Ag. pending sent out bacterial PCR multiplex panel in CSF. CSF lyme AB pending, presumptive started on doxycycline 100mg iv q12h for possible tick borne encephalitis. serum tick panel with negative Lyme screen, pending ehrlichia and rickettsia Pending HSV/VZV DNA. If no significant change in mentation may consider trial of empiric acyclovir. No h/o recurrent cold sores or recent herpetic rash. No h/o shingles. No h/o recent live viral vaccination. Patient not immunocompromised, less likely to be viral encephalitis from EBV,CMV,YUKI or HHV. Cytology from CSF with rare mononuclear cells, no malignancy identified Patient with CT chest supicious for diffuse metastatic disease ??primary being vaginal vs endometrial malignancy. Underwent biopsy with SENIOR GOVERNMENT PROGRAM ANALYST today. paraneoplastic enecaphalitis may be a consideration however less likely to explain fever. Malignancy w/up is still ongoing. Other pertinent infectious w/up: CXR with atelactasis, CT chest with Multifocal pulmonary nodules throughout both lung [place] measuring up to 6.1 mm, concerning for diffuse metastatic disease. pending resp viral panel, tick panel CMV serology negative negative urine legionella AG No h/o animal bites or scratches, no h/o rash no h/o bird exposure, no exotic pets, no h/o consumption of unpasteurized produtcs COVID-[address] of the head unremarkable. MRI without acute intracranial pathology Urine culture was repeated. So far without growth. Blood cultures so far negative. Fungal w/up incl coccidiodes ab, blastomyces, histoplasma urine ag were previously sent out. continue ceftriaxone 2g iv q12h and presumptive trial of doxycycline 100mg BID for possible tick etiology as results of tick panel may take 7 days to return neurology consult appreciated, reviewed. Additionally recommended CTA head EEG today Status: Acute (3) Acute UTI: UTI appears less likely. Negative repeat urine culture. No obstructive uropathy noted on CT. Status: Inactive (4) Uterine mass: Findings on ultrasound with endometrial thickness 4.2 cm concerning for possible malignancy vs fibroid. s/p endometrial biopsy 01/29. Pathology results awaited. Of note. family later also report that she is a Confucianism and will not accept whole blood, with limitations on blood products. They inquire about blood saving strategies for surgery. Status: Acute (5) Abnormal uterine bleeding (AUB): Pending outpatient gynecologic evaluation. Does not accept whole blood. Status: Inactive (6) Retroperitoneal lymphadenopathy: non specific at this time Status: Acute (7) Lung nodules: Discussed with her and family as above, non specific granulomas vs concern for possibility of metastatic disease. Will need follow-up. Status: Acute Plan Hypokalemia: Replaced. Normal magnesium. Hypothyroidism: TSH currently in range at 0.49 Attestations 2 Medical Necessity Statement*: ongoing evaluation for encephalopathy, need for high dose steroids, iv abx Coding Level of Care Code Acute Heel Shaper for Chg Fwd Diagnoses Fever R50.9 Acute encephalopathy G93.40 Acute UTI N39.0 Uterine mass N85.8 Abnormal uterine bleeding (AUB) N93.9 Retroperitoneal lymphadenopathy R59.0 Lung nodules R91.8
--- NOTE | 2022-01-30 11:42 | CTR_ITS ---
PROCEDURE INFORMATION: Exam: CTA Head With Contrast, Arteriography Exam date and time: 01/30/2022 4:19 PM Age: 71 years old Clinical indication: Cognitive deficit and weakness; Type not specified; Additional info: Evaluate for bleeding, patient unresponsive, non verbal TECHNIQUE: Imaging protocol: Computed tomographic angiography of the head with contrast. Exam focused on the arteries. 3D rendering (Not supervised by radiologist): MIP and/or 3D reconstructed images were created by the technologist. Radiation optimization: All CT scans at this facility use at least one of these dose optimization techniques: automated exposure control; mA and/or kV adjustment per patient size (includes targeted exams where dose is matched to clinical indication); or iterative reconstruction. Contrast material: OMNIPAQUE 350; Contrast volume: 95 ml; Contrast route: INTRAVENOUS (IV); COMPARISON: MR head wo/w con [id number] 01/29/2022 11:45 AM RADIATION DOSE METRICS: Total DLP (mGy-cm): 414.18 FINDINGS: ANTERIOR CIRCULATION: Right internal carotid artery: Unremarkable. Intracranial segment is patent with no significant stenosis. No aneurysm. Right middle cerebral artery: Unremarkable. No occlusion or significant stenosis. No aneurysm. Right anterior cerebral artery: Unremarkable. No occlusion or significant stenosis. No aneurysm. Left internal carotid artery: Unremarkable. Intracranial segment is patent with no significant stenosis. No aneurysm. Left middle cerebral artery: Unremarkable. No occlusion or significant stenosis. No aneurysm. Left anterior cerebral artery: Unremarkable. No occlusion or significant stenosis. No aneurysm. POSTERIOR CIRCULATION: Right vertebral artery: Unremarkable. No occlusion or significant stenosis. No aneurysm. Left vertebral artery: Unremarkable. No occlusion or significant stenosis. No aneurysm. Basilar artery: Unremarkable. No occlusion or significant stenosis. No aneurysm. Right posterior cerebral artery: Unremarkable. No occlusion or significant stenosis. No aneurysm. Left posterior cerebral artery: Unremarkable. No occlusion or significant stenosis. No aneurysm. Brain: No definite mass, mass effect, or midline shift. Cerebral ventricles: No ventriculomegaly. Bones/joints: Unremarkable. No acute fracture. Soft tissues: Unremarkable. PROCEDURE INFORMATION: Exam: CTA Neck With Contrast Exam date and time: 01/30/2022 4:19 PM Age: 71 years old Clinical indication: Cognitive deficit and weakness; Type not specified; Additional info: Evaluate for bleeding, patient unresponsive, non verbal TECHNIQUE: Imaging protocol: Computed tomographic angiography of the neck with contrast. 3D rendering (Not supervised by radiologist): MIP and/or 3D reconstructed images were created by the technologist. Radiation optimization: All CT scans at this facility use at least one of these dose optimization techniques: automated exposure control; mA and/or kV adjustment per patient size (includes targeted exams where dose is matched to clinical indication); or iterative reconstruction. Contrast material: OMNIPAQUE 350; Contrast volume: 95 ml; Contrast route: INTRAVENOUS (IV); COMPARISON: MR head wo/w con [id number] 01/29/2022 11:45 AM RADIATION DOSE METRICS: Total DLP (mGy-cm): 414.18 FINDINGS: Right common carotid artery: No stenosis. No dissection or occlusion. Right internal carotid artery: No stenosis of the extracranial segment. No dissection or occlusion. Right external carotid artery: No occlusion or stenosis of the origin. Left common carotid artery: No stenosis. No dissection or occlusion. Left internal carotid artery: No stenosis of the extracranial segment. No dissection or occlusion. Left external carotid artery: No occlusion or stenosis of the origin. Right vertebral artery: No stenosis. No dissection or occlusion. Left vertebral artery: No stenosis. No dissection or occlusion. Soft tissues: Normal. No significant soft tissue swelling. Bones/joints: No acute fracture. Lungs: Multiple nodules in the visualized bilateral lung apices. CT/CT angio headneck* [id number] IMPRESSION: No large vessel stenosis or occlusion. IMPRESSION: No stenosis or occlusion of the neck arteries. Multiple nodules in the visualized the upper lungs. Please refer to CT chest of the same date for details. REFERENCES: NASCET CRITERIA. The degree of internal carotid artery stenosis is based on NASCET criteria. Normal is no stenosis. Mild is less than 50% stenosis. Moderate is 50-69% stenosis. Severe is 70% to 99% stenosis. Total occlusion is no detectable patent lumen.
[2022-01-30] MEDS: metoprolol tartrate 1 mg/1 mL SDV 5 mL 2.5 MG IVP (13:17)
--- NOTE | 2022-01-30 14:52 | PC.SOCIAL ---
IMM update IMM updated with patient. Copy Pg 2 provided. Initialled, dated, timed, and placed in chart.
[2022-01-30] MEDS: iohexol 350 mg/mL 100 mL Btl IV (16:36)
--- NOTE | 2022-01-30 18:06 | PM.ACPR ---
Procedure/Consent Procedure Narrative: ORDERING PHYSICIAN: Dr. Leigh. REASON FOR STUDY: Profound confusion. STUDY: This was a 21 channel digital electroencephalogram performed using the 10-20 international system of electrode placement. This study was non-sleep deprived and the patient was awake, and drowsy. Photic stimulation and hyperventilation were included. FINDINGS: The background consisted of a mixture of 2 to 3 Hz delta and overlying theta. There was constant eye movement artifact and sweat artifact. Jaw movements were also present. There was little variation in the record except toward the midportion of the tracing the left occipital lead was repaired (I was present) and the patient was more calm. She did not follow commands and there was no change in her record except for a calming effect when I talked with her. At no time were there any epileptiform features. There were no lateralizing findings. IMPRESSION: Abnormal EEG due to diffuse slowing of the background consistent with diffuse brain dysfunction. This is a nonspecific record and could be consistent with any type of metabolic, infectious or other encephalopathy. No sign of underlying seizures. Duration of EE minutes
--- NOTE | 2022-01-30 18:16 | PM.PN ---
Subjective Subjective: The patient received a gram of Solu-Medrol last night. This morning and through the night she was reportedly nonresponsive. She was brought to neuroscience this morning for an EEG. She sang you are my sunshine with the technical designer while the leads were being placed and said that she has a son. She did better in speech therapy today. Vitals/I&O/Wt Last Vital Signs Temp 98.2 F 01/30/22 15:43 Pulse 94 01/30/22 15:43 Resp 18 01/30/22 15:43 BP 135/79 01/30/22 15:43 Pulse Ox 95 01/30/22 15:43 O2 Del Method 01/30/22 15:43 O2 Flow Rate 6 01/29/22 08:08 01/30/22 01/30/22 01/30/22 06:59 14:59 22:59 Intake Total 408 / 1712.0 823.5 / 823.5 150 / 973.5 Output Total 400 / 405 400 / 400 Balance 8 / 1307.0 823.5 / 823.5 -250 / 573.5 Physical Exam Narrative: I observe the patient during a portion of her EEG and corrected one of the leads that was not functioning. On completion of the study, which showed diffuse slowing, I performed a neurologic exam. She made good eye contact. She told me she is at home. She could not tell me her son's name but when I said the name she smiled and acknowledged it. She could not repeat a simple phrase but she spoke a few words in my presence which is a big improvement from last night. She held my hands and her jewelry sorter were strong. She would not keep her arms elevated. She is managing her secretions. Urinary Catheter Management: Marie: Cath Placed During This Visit: yes Reason for Continuing Indwelling Catheter: Acute Urinary Retention or Obstruction Urinary Catheter Date of Insertion: 01/29/22 Urinary Catheter Time of Insertion: 14:00 Data : 01/30/22 05:59 01/30/22 05:59 Micro: Microbiology 01/28/22 15:43 Gram Stain - Final Cerebrospinal Fluid CSF Culture - Preliminary Cryptococcal Antigen - Final 01/28/22 13:40 Blood Culture - Preliminary Blood NEGATIVE TO DATE 01/28/22 13:45 Blood Culture - Preliminary Blood NEGATIVE TO DATE A&P Assessment and plan (1) Acute encephalopathy: Status: Acute (2) Encephalitis and encephalomyelitis, unspecified: Discussed with Dr. So. This patient has retroperitoneal lymphadenopathy and multiple pulmonary nodules and presumably an underlying carcinoma. She presents with rapidly progressive encephalopathy, diffuse slowing by EEG without epileptiform features, mild dystonic features on physical exam and no explanation for her fever or her neurologic changes other than encephalomyelitis on the basis of an inflammatory process or paraneoplastic syndrome. Continue steroids. Status: Acute Attestations Medical Necessity Statement*: This patient is profoundly ill with unstable neurologic state. Coding Level of Care Code Acute Dog Races Manager for [facility] Diagnoses Acute encephalopathy G93.40 Encephalitis and encephalomyelitis, unspecified G04.90
[2022-01-30] MEDS: trazodone 50 mg Tablet 25 MG PO (20:00)
[2022-01-30] MEDS: metoprolol tartrate 25 mg Tablet 12.5 MG PO (20:01)
[2022-01-31] VITALS: BP 143/87; PULSE 94; RESP 18; TEMP 37.5; O2SAT 93
[2022-01-31 03:02] LABS: Cryptococcal Source Serum
[2022-01-31 04:00] VITALS: BP 149/89; PULSE 99; RESP 20; TEMP 37.2; O2SAT 94
[2022-01-31] MEDS: acetaminophen 650 mg Supp PR ×4 (04:33→22:57)
[2022-01-31 07:40] VITALS: BP 127/79; PULSE 91; RESP 14; TEMP 36.7; O2SAT 92
[2022-01-31] MEDS: metoprolol tartrate 25 mg Tablet 12.5 MG PO ×2 (09:53→20:01)
[2022-01-31] MEDS: thyroid 60 mg Tablet 15 MG PO (09:54)
[2022-01-31 11:31] VITALS: BP 134/78; PULSE 92; RESP 16; TEMP 37.2; O2SAT 92
[2022-01-31 12:33] LABS: COMPLEMENT COMPONENT C3C 147 mg/dL (83-193); COMPLEMENT COMPONENT C4C 35 mg/dL (15-57)
[2022-01-31 15:09] LABS: ANA SCREEN, IFA NEGATIVE (NEGATIVE)
[2022-01-31 15:29] VITALS: BP 129/76; PULSE 95; RESP 18; TEMP 36.8; O2SAT 96
[2022-01-31 15:38] LABS: THYROID PEROXIDASE ANTIBODIES <1 IU/mL (<9)
[2022-01-31 15:49] LABS: CENTROMERE B ANTIBODY <1.0 NEG AI (<1.0 NEG); JO-1 ANTIBODY <1.0 NEG AI (<1.0 NEG); RNP ANTIBODY <1.0 NEG AI (<1.0 NEG); SCL-70 ANTIBODY <1.0 NEG AI (<1.0 NEG); SJOGREN'S ANTIBODY (SS-A) <1.0 NEG AI (<1.0 NEG); SM ANTIBODY <1.0 NEG AI (<1.0 NEG); SS-B <1.0 NEG AI (<1.0 NEG)
[2022-01-31 17:48] LABS: Fungitell 1-3-B Glucan Assay <31 pg/mL; Interpretation NEGATIVE
[2022-01-31] MEDS: ALPRAZolam 0.5 mg Tablet PO (17:50)
--- NOTE | 2022-01-31 18:32 | P.PN_ITS ---
Subjective Subjective: Patient appears to have a better comprehension today. She is able to appropriately nod yes and no, show a smiling or a sad face appropriately in response to my questions. Family has noted episodes of fixating on 1 word and repetition of that word over and over. These words are help yes and no . Appears to be echolalia. She wakes up easily at times to calling her name, however at other times continues to be asleep. However she is responsive. Gentle stroking of her eyelashes elicits a blink response. She has not yet said a meaningful word to me, however last night per the family she said sentences such as help me make medical decisions , not hungry . There is concern today additionally with her poor eating. She is spitting out what ever food is offered to her. She was taking pudding and medications crushed in applesauce yesterday. She has not demonstrated any gayatri aspiration or choking episodes. 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 CSF cytology returned today with rare monocytoid cells and proteinaceous debris, no malignant cells were noted. Medications: Reviewed: Yes Vitals/I&O/Wt Last Vital Signs Temp 98.2 F 01/31/22 15:29 Pulse 95 01/31/22 15:29 Resp 18 01/31/22 15:29 BP 129/76 01/31/22 15:29 Pulse Ox 96 01/31/22 15:29 O2 Del Method 01/31/22 15:29 O2 Flow Rate 6 01/31/22 08:00 01/31/22 01/31/22 01/31/22 06:59 14:59 22:59 Intake Total 508 / 1481.5 150 / 150 Balance 508 / 1081.5 150 / 150 Physical Exam Narrative: General: No acute distress, lying in bed. Appears to have more comprehension today as noted above. She appears to be following my questions and commands. Nods yes or no. However does not show any meaningful words HEENT: PERRLA, pupils bilaterally equal and reactive, pallors not present Chest: Normal vesicular breath sounds, no added sounds, equal good air entry bilaterally CVS: S1-S2 regular, no murmurs, no tachycardia, no gallops, no rubs Abdomen: Soft, nontender, no organomegaly, bowel sounds present Urinary Catheter Management: Marie: Cath Placed During This Visit: yes Reason for Continuing Indwelling Catheter: Other Urinary Catheter Date of Insertion: 01/29/22 Urinary Catheter Time of Insertion: 14:00 Data : 01/30/22 05:59 01/30/22 05:59 Micro: Microbiology 01/28/22 15:43 Gram Stain - Final Cerebrospinal Fluid CSF Culture - Final Cryptococcal Antigen - Final A&P Assessment and plan (1) Fever: persistent fever x 10 days duration at presentation,currently afberile since evening of 01/28 Status: Acute (2) Acute encephalopathy: With acute delirium and fever, concern for meningoencephalitis for which LP performed on 01/28 (of note patient on imipenem,vancomycin since 01/23) Cell count 125, predominant mononuclear infiltrate , negative gram stain, multiple WBC noted. Cx pending, negative thus far. Glu 59. Protein WNL. negative crytococcus Ag. negative bacterial Ag. Difficult to interpret CSF results on abx. Findings may be indicative of partially treated bacterial meningitis, viral meningitis, neuroborreliosis, less likely neurosyphilis (lack of antecedednt risk factors, acute presentation over 10 days) or malignancy vs paraneoplastic encephalitis. 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 Consideration for IvIg if fails to improve. Confirmed with family that this is compatible with her known JW wishes and beliefs. Spot EEG with mild slowing, no epileptic activity noted. Appreciate neurology recommendations Pertinent infectious meningoencephalitis w/up: Cell count 125, predominant mononuclear infiltrate , negative gram stain, multiple WBC noted. Cx negative thus far. Glu 59. Protein WNL. negative crytococcus Ag. negative bacterial Ag. pending sent out bacterial PCR multiplex panel in CSF. CSF lyme AB pending, presumptively started on doxycycline 100mg iv q12h for possible tick borne encephalitis. serum tick panel with negative Lyme screen, pending ehrlichia and rickettsia Pending HSV/VZV DNA. If no significant change in mentation may consider trial of empiric acyclovir. No h/o recurrent cold sores or recent herpetic rash. No h/o shingles. No h/o recent live viral vaccination. Patient not immunocompromised, less likely to be viral encephalitis from EBV,CMV,YUKI or HHV. Cytology from CSF with rare mononuclear cells, no malignancy identified Patient with CT chest supicious for diffuse metastatic disease ??primary being vaginal vs endometrial malignancy. Underwent biopsy with CONDUCTOR FREIGHT for vaginal and endometrial masses, prelim pathology appears to be squamous cell carcinoma per discussion with pathologist. Confirmatory testing is still pending. If truly squamous cell carcinoma, somewhat odd pattern with vaginal and en dometrial lesions without contiguous cervical involvement. Additionally with metastatic lesions to the chest sparing bulk of the abdomen appears to be inconsistent. Patient may need further evaluation for the lung nodules with biopsy. We are unable to offer a minimally invasive biopsy technique at this time and will seek to transfer her to a higher center for further diagnostic testing in this regard. Overall no one certain unifying diagnosis is currently ascertained for her mental status changes, pulmonary nodules and noted CONDUCTOR FREIGHT malignancy.These may be separate processes or outside energy sales representatives of paraneoplatic syndrome. She is still encephalopathic. We do not have the capability of continuous video EEG monitoring at [facility]. Given this, will seek to transfer care to higher center. Family is agreeblae and would prefer a bloodless hospital. Other pertinent infectious w/up: CXR with atelactasis, CT chest with Multifocal pulmonary nodules throughout both lung [place] measuring up to 6.1 mm, concerning for diffuse metastatic disease. pending resp viral panel, tick panel CMV serology negative,negative monoscreen negative urine legionella AG No h/o animal bites or scratches, no h/o rash no h/o bird exposure, no exotic pets, no h/o consumption of unpasteurized products. Less likely Listeria given she has defervesced, WBC retuned to normal without targeted treatment. COVID-[address] of the head unremarkable. MRI without acute intracranial pathology. CTA head and neck negative Urine culture was repeated. So far without growth. Blood cultures so far negative. Fungal w/up incl coccidiodes ab, blastomyces, histoplasma urine ag were previ ously sent out. low suspicion for MTB given lack of antecedent history or risk factors. H/o international travel for cruise to [email or web address] several years ago. No healthcare exposure. continue ceftriaxone 2g iv q12h and presumptive trial of doxycycline 100mg BID for possible tick etiology as results of tick panel may take 7 days to return Status: Acute (3) Acute UTI: UTI appears less likely. Negative repeat urine culture. No obstructive uropathy noted on CT. Status: Inactive (4) Uterine mass: Findings on ultrasound with endometrial thickness 4.2 cm concerning for possible malignancy vs fibroid. s/p endometrial biopsy 01/29. 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 Of note. family later also report that she is a Mosque and will not accept whole blood, with limitations on blood products. They inquire about blood saving strategies for surgery when needed. Status: Acute (5) Abnormal uterine bleeding (AUB): Pending outpatient gynecologic evaluation. Does not accept whole blood. Status: Inactive (6) Retroperitoneal lymphadenopathy: non specific at this time Status: Acute (7) Lung nodules: Discussed with her and family as above Status: Acute Plan Hypothyroidism: TSH currently in range at 0.49 Attestations Medical Necessity Statement*: Ongoing admission for monitoring of mental status changes, getting high-dose steroids, monitoring caloric intake, may need PEG. Coding Level of Care Code Acute Network Liaison for Chg Fwd Diagnoses Fever R50.9 Acute encephalopathy G93.40 Acute UTI N39.0 Uterine mass N85.8 Abnormal uterine bleeding (AUB) N93.9 Retroperitoneal lymphadenopathy R59.0 Lung nodules R91.8
[2022-01-31 19:29] LABS: Aspergillus AG,EIA,Serum NOT DETECTED; Aspergillus Galactomannan Inde <0.50
[2022-01-31 20:00] VITALS: BP 126/74; PULSE 83; RESP 12; TEMP 36; O2SAT 90
[2022-01-31] MEDS: lactated ringers 1,000 ML 30 ML IV (20:01)
[2022-01-31] MEDS: trazodone 50 mg Tablet 25 MG PO (20:01)
--- NOTE | 2022-01-31 23:28 | PC.NURSE ---
pt was bladder scanned after not voiding post rader removal, pt was found to have greater than 419 ml of urine in the bladder, hospitalist Dr Cifuentes was spoken with, verbal order to place rader back in d/t urinary retention given and order completed by this nurse with assistance of floor aide. return of 375 ml dark yellow urine in bag. pt tolerated well. will continue to monitor.
[2022-02-01] VITALS (8 sets, daily range): BP systolic 124–158; BP diastolic 67–83; PULSE 81–93; RESP 12–20; TEMP 36.6–37.6; O2SAT 90–95
[2022-02-01] MEDS: acetaminophen 325 mg Tablet 650 MG PO ×2 (05:26→13:15)
[2022-02-01] MEDS: ALPRAZolam 0.5 mg Tablet PO (05:26)
[2022-02-01 08:23] LABS: Blastomyces Antigen Interpret NEGATIVE; Blastomyces Antigen Result NONE DETECTED
--- NOTE | 2022-02-01 09:52 | PC.SOCIAL ---
IMM update IMM updated with patient's and DIL. Copy Pg 2 provided. Verbalized an understanding. Initialled, dated, timed, and placed in chart.
[2022-02-01 12:02] LABS: Basophils % 0.1 %; Eosinophils % 0.1 %; Hematocrit 33.4 % (37.0-47.0); Lymphocytes # 2.1 10^3/uL (0.8-4.8); Lymphocytes % 19.5 %; Mean Corpuscular HGB Conc 32.9 g/dL (30.0-36.0); Mean Corpuscular Hemoglobin 29.4 pg (28.0-34.0); Mean Corpuscular Volume 89.3 fl (81-99); Mean Platelet Volume 11.6 fL (7.4-10.4); Monocytes # 0.5 10^3/uL (0.2-0.9); Monocytes % 4.9 %; Neutrophils # 7.84 10^3/uL (1.8-7.7); Neutrophils % 74.6 %; Nucleated Red Blood Cells % 0 %; Platelet Count 180 10^3/cmm (130-400); Red Blood Count 3.74 10^6/uL (4.1-5.3); Red Cell Distribution Width 13.3 % (12.1-15.1); White Blood Count 10.5 10^3/uL (4.0-10.0)
[2022-02-01 12:34] LABS: Alanine Aminotransferase 24 U/L (0-33); Albumin Level 3.2 g/dL (3.5-5.2); Alkaline Phosphatase 114 IU/L (35-105); Anion Gap 16.3 (5-19); Aspartate Amino Transferase 19 U/L (0-32); Blood Urea Nitrogen 44 mg/dL (8-23); Calcium 8.5 mg/dL (8.5-10.5); Carbon Dioxide 24 mmol/L (22-29); Chloride 104 mmol/L (98-107); Globulin 2.2 g/dL (1.3-4.6); Glucose 154 mg/dL (65-115); Osmolality Calculated 306 mOsm/kg (285-295); Potassium 3.3 mmol/L (3.5-5.1); Sodium 141 mmol/L (136-145); Total Bilirubin 0.4 mg/dL (0.15-1.2); Total Protein 5.4 g/dL (6.6-8.7)
[2022-02-01] MEDS: ALPRAZolam 0.5 mg Tablet 1 MG PO (13:12)
[2022-02-01] MEDS: thyroid 60 mg Tablet 15 MG PO (13:12)
[2022-02-01] MEDS: metoprolol tartrate 25 mg Tablet 12.5 MG PO (13:14)
[2022-02-01 13:33] LABS: COMPLEMENT, TOTAL (CH50) >60 U/mL (31-60)
--- NOTE | 2022-02-01 13:43 | PM.CONSULT ---
Providers/Reason For Consult Consulting Physician/Specialty*: Raúl Rhodes MD Reason for Consult*: Feeding difficulty Requesting Physician: Dr. Leigh Attending Physician: Monica Leigh MD Primary Care Provider: RELL Godoy History of Present Illness History of Present Illness Ms. Oanh Murray is a pleasant 71 year old female diagnosed with encephalopathy and is having a component of dysphagia, patient has been in the hospital for the past 2 weeks and general surgery was consulted for PEG tube placement, due to her complex medical history in the form of encephalopathy ,patient is not able to maintain appropriate nutrition status. CT of the abdomen pelvis was done on the 2021 and did show; 1. Colonic diverticulosis without CT evidence of diverticulitis. 2. Previous distal colon resection with rectosigmoid anastomosis. 3. Prominent uterus containing partially calcified uterine fibroid or uterine mass measuring at least 7.2cm. 4. Retroperitoneal lymphadenopathy including 1.8 x 1.9 cm aortocaval lymph node. 5. Multiple bilateral noncalcified pulmonary nodules including 12 mm posterior right lower lobe nodule. Patient was seen and evaluated in the presence of her spouse, 2 sons and their wives. Review of Systems General: Reports: ROS unobtainable due to medical condition Medications/Allergies Home Medications Medication Instructions Recorded Confirmed Last Taken Type cholecalciferol (vitamin D3) 25 5,000 unit PO DAILY 09/07/19 01/22/22 01/22/22 History mcg (1,000 unit) tablet (Vitamin D3) thyroid (pork) 15 mg tablet 15 mg PO DAILY #90 tabs 10/29/21 01/22/22 01/22/22 Rx ([place] Thyroid) ciprofloxacin HCl 250 mg tablet 250 mg PO BID 5 days #10 tabs 01/20/22 01/22/22 01/22/22 Rx (Cipro) Whole Food Multi Vitamin Liq. 30 ml PO DAILY 01/22/22 01/22/22 01/22/22 History Allergies Allergy/AdvReac Type Severity Reaction Status Date / Time Penicillins Allergy Rash Verified 02/01/22 16:04 Whole blood AdvReac Unknown Unknown Uncoded 02/01/22 16:04 Current Medications Generic Name Dose Route Start Last Admin Trade Name Freq PRN Reason Stop Dose Admin Acetaminophen 650 mg 01/22/22 23:08 02/01/22 13:15 Acetaminophen 325 Mg Tablet PO 650 mg Q6H PRN Administration Mild/Mod Pain Or Temp >/= 101 Acetaminophen 650 mg 01/29/22 17:00 01/31/22 22:57 Acetaminophen 650 Mg Supp LA 650 mg Q6H PRN Administration PAIN Alprazolam 0.5 mg 01/31/22 17:43 02/01/22 05:26 Alprazolam 0.5 Mg Tablet PO 0.5 mg BID PRN Administration anxiety Lactated Ringer's 1,000 mls @ 30 mls/hr 01/27/22 10:00 01/31/22 20:01 Lactated Ringers IV 30 mls/hr .Q24H YEHUDA Administration Doxycycline Hyclate 100 mg/ 100 mls @ 100 mls/hr 01/29/22 14:30 02/01/22 03:17 Dextrose IV Infused Q12H YEHUDA Infusion Protocol Ceftriaxone Sodium 2,000 mg/ 50 mls @ 100 mls/hr 01/29/22 16:00 02/01/22 05:11 Dextrose IV Infused Q12H YEHUDA Infusion Protocol Methylprednisolone Sodium 258 mls @ 258 mls/hr 01/29/22 21:00 01/31/22 23:38 Succinate 1,000 mg/ Sodium IV 02/02/22 21:59 Infused Chloride Q24H YEHUDA Infusion Metoprolol Tartrate 12.5 mg 01/30/22 12:50 02/01/22 13:14 Metoprolol Tartrate 25 Mg Tablet PO 12.5 mg BID@0900,2100 YEHUDA Administration Quetiapine Fumarate 25 mg 01/27/22 09:55 01/29/22 09:17 Quetiapine 25 Mg Tablet PO Not Given BID YEHUDA Thyroid 15 mg 01/23/22 09:00 02/01/22 13:12 Thyroid 60 Mg Tablet PO 15 mg DAILY YEHUDA Administration Trazodone HCl 25 mg 01/25/22 21:00 01/31/22 20:01 Trazodone 50 Mg Tablet PO 25 mg BEDTIME YEHUDA Administration PFSH Acute PFSH: Medical History Adult onset hypothyroidism Heart murmur Mammogram normal 2014 Uterine fibroid Vitamin D deficiency Surgical History History of colonoscopy 2016 had colon tear and colon resection History of partial surgical removal of colon 2016 Family History Mother Hypertension Father Heart disease Myocardial infarction Social History Smoking and tobacco status: never smoked Second hand smoke exposure: No Smoking risk assessment/counseling performed?: No Alcohol intake: current Alcohol intake frequency: 0-2 Drinks per Day Desire information about alcohol rehabilitation?: No Counseling given: No Desire information about substance/drug rehabilitation?: No Counseling given: No Adopted: No Caregiver/support person: No Lives independently: Yes Household members: spouse Housing: House Marital status: Number of children: 2 service: No Current occupational status: retired Current occupational exposures/hazards: No History of recent travel: No Current gender identity: Female Vitals/I&O/Wt Last Vital Signs Temp 98.2 F 02/01/22 11:05 Pulse 92 02/01/22 11:05 Resp 15 02/01/22 11:05 BP 158/83 02/01/22 11:05 Pulse Ox 95 02/01/22 11:05 O2 Del Method 02/01/22 11:05 O2 Flow Rate 6 01/31/22 08:00 01/31/22 02/01/22 02/01/22 22:59 06:59 14:59 Intake Total 1510 / 1510 408 / 1918 Output Total 250 / 250 375 / 375 Balance 1510 / 1510 158 / 1668 -375 / -375 Physical Exam Narrative: Patient is conscious alert No apparent distress BMI 26.2 Head and neck examination PERRLA no masses no cervical lymphadenopathy no jaundice Cardiac examination audible S1-S2 no murmurs no gallops no arrhythmias Chest is clear bilateral,abscence of Rhonchi or wheezes,no surgical emphysema Abdomen nontender nondistended soft no organomegaly guarding or rigidity/no signs of peritonitis Lower midline scar from previous colon surgery Extremities no cyanosis no clubbing no edema Urinary Catheter Management: Marie: Cath Placed During This Visit: yes, but has since been removed by the nurse Reason for Continuing Indwelling Catheter: Acute Urinary Retention or Obstruction Urinary Catheter Date of Insertion: 01/31/22 Urinary Catheter Time of Insertion: 23:33 Date Urinary Catheter Removed: 01/31/22 Time Urinary Catheter Discontinued: 12:05 Data : 02/01/22 11:54 02/01/22 11:54 Micro: Microbiology 01/28/22 15:43 Gram Stain - Final Cerebrospinal Fluid CSF Culture - Final Cryptococcal Antigen - Final A&P Assessment and plan (1) Feeding difficulty: Plan of care; After thorough history and physical examination and reviewing the chart, plan to perform a endoscopic guided percutaneous gastrostomy feeding tube placement tomorrow. I discussed with the patient's family in detail the risk,benefits,alternatives and indications.The risk of aspiration, bleeding, soft tissue injury, perforation of the stomach/esophagus and other potential concomitant complications were explained to the patient's family in details,also the potential need for Thoracic and or Abdominal surgery to repair any complications.The patient's family understood this well and did agree to proceed. Rationale was carefully and clearly discussed with the patient's family.Appropriate informed consent have been reviewed and signed All questions have been answered and all concerns have been addressed to patient's family satisfaction. Serum albumin checked 3.2 g/dL Status: Acute Consult Attestations Time Spent in Patient Care: 16 - 35 minutes Coding Level of Care Code Acute Oil Well Service Operator for Chg Fwd Diagnoses Feeding difficulty R63.30
--- NOTE | 2022-02-01 15:30 | PC.NURSE ---
Family updated regarding IV IG. They are okay for her to get the infusion.
--- NOTE | 2022-02-01 16:02 | PM.PN ---
Subjective Subjective: Afebrile, hemodynamically stable. Mental status remains unchanged. Per family she was able to state a few short sentences overnight such as I want to go home I have had enough , had bouts of sobbing. On my assessment this morning patient is nonverbal. She stares at the ceiling, attempts to look at me on calling name but no further response. She was noted to be eating a few bites of Jell-O when family was feeding her, however after 10-12 bites she stopped chewing and swallowing attempts. Echolalia still persisting. Has episodes of hyperventilation, recurrent repetition of words yes no and help. Medications: Reviewed: Yes Vitals/I&O/Wt Last Vital Signs Temp 98.2 F 02/01/22 15:16 Pulse 93 02/01/22 15:16 Resp 14 02/01/22 15:16 BP 150/76 02/01/22 15:16 Pulse Ox 94 02/01/22 15:16 O2 Del Method 02/01/22 15:16 O2 Flow Rate 6 01/31/22 08:00 02/01/22 02/01/22 02/01/22 06:59 14:59 22:59 Intake Total 408 / 1918 Output Total 250 / 250 375 / 375 Balance 158 / 1668 -375 / -375 Physical Exam Narrative: General: Lying in bed, nonverbal today, does not tell me her name age or answer any other questions. Blankly stares at the ceiling. HEENT: PERRLA, pupils bilaterally equal and reactive, pallors not present Chest: Normal vesicular breath sounds CVS: S1-S2 regular, no murmurs, no tachycardia, no gallops, no rubs Abdomen: Soft, nontender, no organomegaly, bowel sounds present Neuro: Is not following my commands to move her extremities. Does not attempt to hold up extremities when passively elevated. Urinary Catheter Management: Marie: Cath Placed During This Visit: yes, but has since been removed by the nurse Reason for Continuing Indwelling Catheter: Acute Urinary Retention or Obstruction Urinary Catheter Date of Insertion: 01/31/22 Urinary Catheter Time of Insertion: 23:33 Date Urinary Catheter Removed: 01/31/22 Time Urinary Catheter Discontinued: 12:05 Data : 02/01/22 11:54 02/01/22 11:54 Micro: Microbiology 01/28/22 15:43 Gram Stain - Final Cerebrospinal Fluid CSF Culture - Final Cryptococcal Antigen - Final A&P Assessment and plan (1) Fever: fever x 10 days duration at presentation,currently afberile since evening of 01/28 Status: Acute (2) Acute encephalopathy: Patient continues to have persisting profound encephalopathy without any meaningful improvement in mental status. With acute encephalopathy and fever, concern for meningoencephalitis for which LP performed on 01/28 (of note patient on imipenem,vancomycin since 01/23) Cell count 125, predominant mononuclear infiltrate , negative gram stain, multiple WBC noted. Cx negative since 3 days. Glu 59. Protein WNL. negative crytococcus Ag. negative bacterial Ag. Differentials were broad including partially treated bacterial meningitis, viral meningitis, neuroborreliosis, less likely neurosyphilis (lack of antecedednt risk factors, acute presentation over 10 days) or malignancy vs paraneoplastic encephalitis. Spot EEG with mild slowing, no epileptic activity noted. 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 There has been no significant improvement in her mental status after 3 days of high-dose steroids. Her mental status was discussed with Dr. Oshea today. Neurology recommendation is to proceed with IVIG at a dose of 0.4 g/kg/day for a total of 5 days.Confirmed with family that IVIG infusion is compatible with her known JW wishes and beliefs. Pertinent negative infectious w/up as follows: Cell count 125, predominant mononuclear infiltrate , negative gram stain, multiple WBC noted. Cx negative thus far. Glu 59. Protein WNL. negative crytococcus Ag. negative bacterial Ag. pending sent out bacterial PCR multiplex panel in CSF. CSF lyme AB pending, presumptively started on doxycycline 100mg iv q12h for possible tick borne encephalitis. serum tick panel with negative Lyme screen, pending ehrlichia and rickettsia serology Pending HSV/VZV DNA. No h/o recurrent cold sores or recent herpetic rash. No h/o shingles. No h/o recent live viral vaccination. Patient not immunocompromised, less likely to be viral encephalitis from EBV,CMV,YUKI or HHV. Cytology from CSF with rare mononuclear cells, no malignancy identified CXR with atelactasis, CT chest with Multifocal pulmonary nodules throughout both lung [place] measuring up to 6.1 mm, concerning for diffuse metastatic disease. pending resp viral panel, tick panel CMV serology negative,negative monoscreen negative urine legionella AG No h/o animal bites or scratches, no h/o rash no h/o bird exposure, no exotic pets, no h/o consumption of unpasteurized products. Less likely Listeria given she has defervesced, WBC returned to normal without targeted treatment, cx negative. COVID-[address] of the head unremarkable. MRI without acute intracranial pathology. CTA head and neck negative Urine culture was repeated. So far without growth. Blood cultures so far negative. Fungal w/up incl coccidiodes ab, histoplasma urine ag pending, blastomyces negative. low suspicion for MTB given lack of antecedent history or risk factors. H/o international travel for cruise to [facility] several years ago. No healthcare exposure. Other work up: Patient with CT chest supicious for diffuse metastatic disease ??primary being vaginal vs endometrial malignancy. Underwent biopsy with CALENDER MACHINE OPERATOR for vaginal and endometrial masses on 01/29, prelim pathology appears to be squamous cell carcinoma per discussion with pathologist. Confirmatory testing is still pending. If truly squamous cell carcinoma, somewhat odd pattern with vaginal and endometrial lesions without contiguous cervical involvement. Additionally with metastatic lesions to the chest sparing bulk of the abdomen appears to be inconsistent. Patient may need further evaluation for the lung nodules with biopsy. We are unable to offer a minimally invasive biopsy technique at this time and will seek to transfer her to a higher center for further diagnostic testing in this regard. Overall no one certain unifying diagnosis is currently ascertained for her mental status changes, pulmonary nodules and noted CALENDER MACHINE OPERATOR malignancy.These may be separate processes or sales representative raw fibers of paraneoplatic syndrome. She is still encephalopathic in spite of extensive work up within out capabilities at [facility] [place]. We do not have the capability of continuous video EEG monitoring at [facility] [place]. Given this, will seek to transfer care to higher center. Family is agreeblae and would prefer a bloodless hospital. She has been aaccepted [facility] hospitalist service, we are awaiting beds. Plan: s/p imipenem, vancomycin (01/23-01/29), ceftriaxone 2g iv q12h (01/29-02/01)- dicontinue abx today as had overall 10 days empiric course with continued worsening mentation. Unlikely to be bacterial cause not adequately covered with this regimen. Doxycycline 100mg iv q12h (01/28-)- will d/c after 7 day presumptive course- no significant imprvement noted till date except being afebrile. No evidence of viral or fungal meningitis at this time. Pending studies as noted above. Attempting to add west Nile Ab to CSF at [facility] Status: Acute (3) Acute UTI: UTI appears less likely. Negative repeat urine culture. No obstructive uropathy noted on CT. Status: Inactive (4) Uterine mass: Findings on ultrasound with endometrial thickness 4.2 cm concerning for possible malignancy vs fibroid. s/p endometrial biopsy 01/29. 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 Of note. 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 They inquire about blood saving strategies for surgery when needed. Status: Acute (5) Abnormal uterine bleeding (AUB): Pending outpatient gynecologic evaluation. Does not accept whole blood. Status: Inactive (6) Retroperitoneal lymphadenopathy: non specific at this time Status: Acute (7) Lung nodules: Discussed with her and family as above Status: Acute Plan Hypothyroidism: TSH currently in range at 0.49 Attestations Medical Necessity Statement*: persisting encepahlopathy, starting IvIG today Coding Level of Care Code Acute Vaccinator for Chg Fwd Diagnoses Fever R50.9 Acute encephalopathy G93.40 Acute UTI N39.0 Uterine mass N85.8 Abnormal uterine bleeding (AUB) N93.9 Retroperitoneal lymphadenopathy R59.0 Lung nodules R91.8
--- NOTE | 2022-02-01 19:06 | PC.SLP ---
Patient too sedated for CAGE MAKER to work with
--- NOTE | 2022-02-01 19:06 | PC.SLP ---
Patient too sedated for the SUPPLY ANALYST to work with today.
--- NOTE | 2022-02-01 22:00 | PC.NURSE ---
Patient is resting peacefully. Family askked nurse to wait to give addition oral meds when patient is more wakeful.
[2022-02-01 22:09] LABS: E. Chaffeensis AB IGG <1:64; E. Chaffeensis AB IGM <1:20
[2022-02-01 23:27] LABS: Histoplasma Galactomannan Ag <0.2 ng/mL
[2022-02-02] VITALS (11 sets, daily range): BP systolic 111–155; BP diastolic 63–81; PULSE 68–93; RESP 12–20; TEMP 36.3–37.7; O2SAT 93–97
[2022-02-02] MEDS: ALPRAZolam 0.5 mg Tablet PO ×2 (01:16→18:11)
[2022-02-02] MEDS: acetaminophen 325 mg Tablet 650 MG PO ×3 (01:16→17:43)
--- NOTE | 2022-02-02 07:37 | PM.PN ---
Subjective Subjective: Patient was seen and evaluated and seems that she had a better night per her spouse's description Medications: Reviewed: Yes Vitals/I&O/Wt Last Vital Signs Temp 98.6 F 02/02/22 03:32 Pulse 81 02/02/22 03:32 Resp 16 02/02/22 03:32 BP 134/76 02/02/22 03:32 Pulse Ox 94 02/02/22 03:32 O2 Del Method 02/02/22 03:32 O2 Flow Rate 6 02/01/22 20:00 02/01/22 02/02/22 02/02/22 22:59 06:59 14:59 Intake Total 239.5 / 239.5 Output Total 350 / 725 400 / 1125 Balance -110.5 / -485.5 -400 / -885.5 Physical Exam Narrative: Patient is conscious alert, resting No apparent distress BMI 26.2 Head and neck examination PERRLA no masses no cervical lymphadenopathy no jaundice Abdomen nontender nondistended soft no organomegaly guarding or rigidity/no signs of peritonitis Urinary Catheter Management: Marie: Cath Placed During This Visit: yes, but has since been removed by the nurse Reason for Continuing Indwelling Catheter: Acute Urinary Retention or Obstruction Urinary Catheter Date of Insertion: 01/31/22 Urinary Catheter Time of Insertion: 23:33 Date Urinary Catheter Removed: 01/31/22 Time Urinary Catheter Discontinued: 12:05 Data : 02/01/22 11:54 02/01/22 11:54 A&P Assessment and plan (1) Feeding difficulty: We will proceed with the PEG tube insertion today in the GI Informed consent per chart Status: Acute Attestations Medical Necessity Statement*: Per admitting service Coding Level of Care Code Acute Natural History Collections Curator for Chg Fwd Diagnoses Feeding difficulty R63.30
[2022-02-02] MEDS: sodium chloride 0.9% 1,000 ML 30 ML IV (07:50)
--- NOTE | 2022-02-02 07:54 | ANES.PREANE2 ---
Pre-Anesthetic Assessment Height/Weight: Height 1.57 m Weight 64.954 kg Temp Pulse Resp BP Pulse Ox O2 Del Method O2 Flow Rate 98.6 F 81 16 134/76 94 6 02/02/22 03:32 02/02/22 03:32 02/02/22 03:32 02/02/22 03:32 02/02/22 03:32 02/02/22 03:32 02/01/22 20:00 Preop Diagnosis: Feeding difficulty Operation Date: 01/29/22 07:00 Proposed Procedures p Hysteroscopy w/ Myosure(Not Applicable) - Mirella Wisdom MD s Dilation And Curettage (D&C)(Not Applicable) - Mirella Wisdom MD Operation Date: 02/02/22 08:00 Proposed Procedures p EGD(Not Applicable) - Raúl Rhodes MD s PEG Tube Insertion(Not Applicable) - Raúl Rhodes MD Familial anesthetic complications: None Was Beta Jeff taken within 24 hours: N/A Was Clonidine taken within 24 hours: N/A Last intake: Intake Last Liquid Date 01/29/22 Last Liquid Time 00:00 Last Solid Date 01/29/22 Last Solid Time 00:00 Social No alcohol and No tobacco Exam clear to auscultation bilaterally and regular rate & rhythm Pulmonary None reported CV/HEM None reported None reported Hepatic None reported GI dysphagia Metabolic Thyroid Disease Neuropsych acute encephalopathy Anesthetic Plan ASA status: 4 Anesthesia: MAC Risk of > 500 ml blood loss (7ml/kg in children): No Medications/Allergies Home Medications Medication Instructions Recorded Confirmed Last Taken Type cholecalciferol (vitamin D3) 25 5,000 unit PO DAILY 09/07/19 01/22/22 01/22/22 History mcg (1,000 unit) tablet (Vitamin D3) thyroid (pork) 15 mg tablet 15 mg PO DAILY #90 tabs 10/29/21 01/22/22 01/22/22 Rx ([place] Thyroid) ciprofloxacin HCl 250 mg tablet 250 mg PO BID 5 days #10 tabs 01/20/22 01/22/22 01/22/22 Rx (Cipro) Whole Food Multi Vitamin Liq. 30 ml PO DAILY 01/22/22 01/22/22 01/22/22 History Allergies Allergy/AdvReac Type Severity Reaction Status Date / Time Penicillins Allergy Rash Verified 02/01/22 16:04 Whole blood AdvReac Unknown Unknown Uncoded 02/01/22 16:04 Current Medications Generic Name Dose Route Start Last Admin Trade Name Harini PRN Reason Stop Dose Admin Acetaminophen 650 mg 01/22/22 23:08 02/02/22 01:16 Acetaminophen 325 Mg Tablet PO 650 mg Q6H PRN Administration Mild/Mod Pain Or Temp >/= 101 Acetaminophen 650 mg 01/29/22 17:00 01/31/22 22:57 Acetaminophen 650 Mg Supp LA 650 mg Q6H PRN Administration PAIN Alprazolam 0.5 mg 01/31/22 17:43 02/02/22 01:16 Alprazolam 0.5 Mg Tablet PO 0.5 mg BID PRN Administration anxiety Lactated Ringer's 1,000 mls @ 30 mls/hr 01/27/22 10:00 02/01/22 22:01 Lactated Ringers IV Not Given .Q24H YEHUDA Doxycycline Hyclate 100 mg/ 100 mls @ 100 mls/hr 01/29/22 14:30 02/02/22 04:07 Dextrose IV 100 mls/hr Q12H YEHUDA Administration Protocol Ceftriaxone Sodium 2,000 mg/ 50 mls @ 100 mls/hr 01/29/22 16:00 02/01/22 22:02 Dextrose IV 100 mls/hr Q12H YEHUDA Administration Protocol Metoprolol Tartrate 12.5 mg 01/30/22 12:50 02/02/22 02:02 Metoprolol Tartrate 25 Mg Tablet PO Not Given BID@0900,2100 YEHUDA Quetiapine Fumarate 25 mg 01/27/22 09:55 01/29/22 09:17 Quetiapine 25 Mg Tablet PO Not Given BID YEHUDA Thyroid 15 mg 01/23/22 09:00 02/01/22 13:12 Thyroid 60 Mg Tablet PO 15 mg DAILY YEHUDA Administration Trazodone HCl 25 mg 01/25/22 21:00 02/02/22 02:03 Trazodone 50 Mg Tablet PO Not Given BEDTIME YEHUDA PFSH Anesthesia Medical History Adult onset hypothyroidism Heart murmur Mammogram normal 2014 Uterine fibroid Vitamin D deficiency Surgical History History of colonoscopy 2016 had colon tear and colon resection History of partial surgical removal of colon 2016 Family History Mother Hypertension Father Heart disease Myocardial infarction Social History Smoking and tobacco status: never smoked Second hand smoke exposure: No Smoking risk assessment/counseling performed?: No Alcohol intake: current Alcohol intake frequency: 0-2 Drinks per Day Desire information about alcohol rehabilitation?: No Counseling given: No Desire information about substance/drug rehabilitation?: No Counseling given: No Adopted: No Caregiver/support person: No Lives independently: Yes Household members: spouse Housing: House Marital status: Number of children: 2 service: No Current occupational status: retired Current occupational exposures/hazards: No History of recent travel: No Current gender identity: Female Data Anesthesia : 02/01/22 11:54 02/01/22 11:54 Short CBC 02/01/22 Range/Units 11:54 WBC 10.5 H (4.0-10.0) 10^3/uL Hgb 11.0 L (11.5-15.3) g/dL Hct 33.4 L (37.0-47.0) % MCV 89.3 (81-99) fl Plt Count 180 (130-400) 10^3/cmm Neut % (Auto) 74.6 % Neut # (Auto) 7.84 H (1.8-7.7) 10^3/uL BMP 02/01/22 11:54 Sodium 141 Potassium 3.3 L Chloride 104 Carbon Dioxide 24 BUN 44 H Creatinine 0.3 L Glucose 154 H Calcium 8.5 Liver Function 02/01/22 Range/Units 11:54 Total Bilirubin 0.4 (0.15-1.2) mg/dL AST 19 (0-32) U/L ALT 24 (0-33) U/L Alkaline Phosphatase 114 H (35-105) IU/L Albumin 3.2 L (3.5-5.2) g/dL Cardiac Studies: No Data to Display
[2022-02-02] MEDS: quetiapine 25 mg Tablet PO ×2 (10:07→17:43)
[2022-02-02 10:10] LABS: SARS Covid-2 Antigen Negative (Negative)
--- NOTE | 2022-02-02 10:30 | ANE.PACU2 ---
Inpatient post-anesthesia follow up: Airway intact: Yes Vital signs: Temperature 99.3 F Pulse Rate 74 Respiratory Rate 16 Blood Pressure 111/63 Pulse Oximetry 93 Oxygen Delivery Me thod Room Air Oxygen Flow Rate 4 Fraction of Inspir ed Oxygen Hydration adequate: Yes Nausea and vomiting: No Pain level: 1 Mental status: Baseline
--- NOTE | 2022-02-02 11:33 | PC.NURSE ---
Sharon from [facility] called to get update on covid status and vital signs. She was updated patients covid was negative this morning and vital signs. She states no bed is available at this time but will update whenever one becomes available.
[2022-02-02 15:26] LABS: Adenovirus Not Detected (Not Detected); Human Metapneumovirus Not Detected (Not Detected); Human Parainflu Virus 1 Not Detected (Not Detected); Human Parainflu Virus 2 Not Detected (Not Detected); Human Parainflu Virus 3 Not Detected (Not Detected); Human Rsv A Not Detected (Not Detected); Influenza A Not Detected (Not Detected); Influenza B Not Detected (Not Detected); Rhinovirus/Enterovirus Not Detected (Not Detected)
[2022-02-02 16:07] LABS: DNA AB (DS) CRITHIDIA,IFA NEGATIVE (NEGATIVE)
--- NOTE | 2022-02-02 16:18 | P.PN_ITS ---
Subjective Subjective: Continues to be encephalopathic. Seen after return from the OR after PEG placement, patient is currently asleep. Remains nonverbal and lethargic. Received first dose of IVIG yesterday, tolerated this well. Medications: Reviewed: Yes Vitals/I&O/Wt Last Vital Signs Temp 98.2 F 02/02/22 16:00 Pulse 93 02/02/22 16:00 Resp 12 02/02/22 16:00 BP 145/73 02/02/22 16:00 Pulse Ox 97 02/02/22 16:00 O2 Del Method 02/02/22 16:00 O2 Flow Rate 4 02/02/22 08:55 02/02/22 02/02/22 02/02/22 06:59 14:59 22:59 Intake Total 100 / 100 Output Total 400 / 1125 Balance -400 / -885.5 100 / 100 Physical Exam Narrative: General: Lying in bed, currently asleep HEENT: PERRLA, pupils bilaterally equal and reactive, pallors not present Chest: Normal vesicular breath sounds CVS: S1-S2 regular, no murmurs, no tachycardia, no gallops, no rubs Abdomen: Soft, nontender, no organomegaly, bowel sounds present Neuro: remains non verbal, encephalopathic Urinary Catheter Management: Marie: Cath Placed During This Visit: yes, but has since been removed by the nurse Reason for Continuing Indwelling Catheter: Acute Urinary Retention or Obstruction Urinary Catheter Date of Insertion: 01/31/22 Urinary Catheter Time of Insertion: 23:33 Date Urinary Catheter Removed: 01/31/22 Time Urinary Catheter Discontinued: 12:05 Data : 02/01/22 11:54 02/01/22 11:54 Micro: Microbiology 01/28/22 13:40 Blood Culture - Final Blood NO GROWTH AFTER 5 DAYS 01/28/22 13:45 Blood Culture - Final Blood NO GROWTH AFTER 5 DAYS A&P Assessment and plan (1) Fever: fever x 10 days duration at presentation,currently afberile since evening of 01/28 Status: Acute (2) Acute encephalopathy: Patient continues to have persisting profound encephalopathy without any meaningful improvement in mental status. With acute encephalopathy and fever, concern for meningoencephalitis for which LP performed on 01/28 (of note patient on imipenem,vancomycin since 01/23) Cell count 125, predominant mononuclear infiltrate , negative gram stain, multiple WBC noted. Cx negative since 3 days. Glu 59. Protein WNL. negative crytococcus Ag. negative bacterial Ag. Differentials were broad including partially treated bacterial meningitis, viral meningitis, neuroborreliosis, less likely neurosyphilis (lack of antecedednt risk factors, acute presentation over 10 days) or malignancy vs paraneoplastic encephalitis. Spot EEG with mild slowing, no epileptic activity noted. 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 There was no significant improvement in her mental status after 3 days of high-dose steroids. Currently day 2 of IVIG at a dose of 0.4 g/kg/day for a total of 5 days.Confirmed with family that IVIG infusion is compatible with her known JW wishes and beliefs. Pertinent negative infectious w/up as follows: Cell count 125, predominant mononuclear infiltrate , negative gram stain, multiple WBC noted. Cx negative thus far. Glu 59. Protein WNL. negative crytococcus Ag. negative bacterial Ag. pending sent out bacterial PCR multiplex panel in CSF. CSF lyme AB pending, presumptively started on doxycycline 100mg iv q12h for possible tick borne encephalitis. serum tick panel with negative Lyme screen, ehrlichia and rickettsia serology Pending HSV/VZV DNA. No h/o recurrent cold sores or recent herpetic rash. No h/o shingles. No h/o recent live viral vaccination. Patient not immunocompromised, less likely to be viral encephalitis from EBV,CMV,YUKI or HHV. Cytology from CSF with rare mononuclear cells, no malignancy identified CXR with atelactasis, CT chest with Multifocal pulmonary nodules throughout both lung [place] measuring up to 6.1 mm, concerning for diffuse metastatic disease. negative resp viral panel, tick panel, pending [place] DFA CMV serology negative,negative monoscreen negative urine legionella AG No h/o animal bites or scratches, no h/o rash no h/o bird exposure, no exotic pets, no h/o consumption of unpasteurized products. Less likely Listeria given she has defervesced, WBC returned to normal without targeted treatment, cx negative. COVID-[address] of the head unremarkable. MRI without acute intracranial pathology. CTA head and neck negative Urine culture was repeated. So far without growth. Blood cultures so far negative. Fungal w/up incl coccidiodes ab, histoplasma urine ag , blastomyces Ab negative. low suspicion for MTB given lack of antecedent history or risk factors. H/o international travel except for cruise to [place] several years ago. No healthcare exposure. Unable to add West Nile encephalitis AB as inadequate specimen Other work up: Patient with CT chest supicious for diffuse metastatic disease ??primary being vaginal vs endometrial malignancy. Underwent biopsy with MEDICAL AUTHORIZATION SPECIALIST for vaginal and endometrial masses on 01/29, prelim pathology appears to be squamous cell carcinoma per discussion with pathologist. Final report is still pending. If truly squamous cell carcinoma, somewhat odd pattern with vaginal and endometrial lesions without contiguous cervical involvement. Additionally with metastatic lesions to the chest sparing bulk of the abdomen appears to be inconsistent. Patient may need further evaluation for the lung nodules with biopsy. We are unable to offer a minimally invasive biopsy technique at this time and will seek to transfer her to a higher center for further diagnostic testing in this regard. Overall no one certain unifying diagnosis is currently ascertained for her mental status changes, pulmonary nodules and noted MEDICAL AUTHORIZATION SPECIALIST malignancy.These may be separate processes or patient access representative of paraneoplatic syndrome. She is still encephalopathic in spite of extensive work up within our capabilities at [facility]. We do not have the capability of continuous video EEG monitoring at [facility]. Given this, will seek to transfer care to higher center. Family is agreeblae and would prefer a bloodless hospital. She has been aaccepted at [facility] hospitalist service, we are awaiting beds. Plan: s/p imipenem, vancomycin (01/23-01/29), ceftriaxone 2g iv q12h (01/29-02/01)- dicontinued abx as had overall 10 days empiric course with continued worsening mentation. Unlikely to be bacterial cause not adequately covered with this regimen. Doxycycline 100mg iv q12h (01/28-)- will d/c after 7 day presumptive course- no significant improvement noted till date except being afebrile. No evidence of viral or fungal meningitis at this time. Pending studies as noted above. For echolalaia, episodes of intermittent agitation she is on seroquel 25mg BID. Status: Acute (3) Feeding difficulty: S/p PEG placement today given due to poor po intake Status: Acute (4) Acute UTI: UTI appears less likely. Negative repeat urine culture. No obstructive uropathy noted on CT. Status: Inactive (5) Uterine mass: Findings on ultrasound with endometrial thickness 4.2 cm concerning for possible malignancy vs fibroid. s/p endometrial biopsy 01/29. 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 Of note. family later also report that she is a [employer] and will not accept whole blood, with limitations on blood products. They inquire about blood saving strategies for surgery when needed. Status: Acute (6) Abnormal uterine bleeding (AUB): Pending outpatient gynecologic evaluation. Does not accept whole blood. Status: Inactive (7) Retroperitoneal lymphadenopathy: non specific at this time Status: Acute (8) Lung nodules: Discussed with her and family as above Status: Acute Plan Hypothyroidism: TSH currently in range at 0.49 Attestations Medical Necessity Statement*: IvIg treatment ongoing, persisting encephalopathy Coding Level of Care Code Acute Vocational Training Instructor for Chg Fwd Diagnoses Fever R50.9 Acute encephalopathy G93.40 Feeding difficulty R63.30 Acute UTI N39.0 Uterine mass N85.8 Abnormal uterine bleeding (AUB) N93.9 Retroperitoneal lymphadenopathy R59.0 Lung nodules R91.8
[2022-02-02] MEDS: pantoprazole 40 mg SDV IVP (17:40)
--- NOTE | 2022-02-02 18:26 | PC.NURSE ---
Dyana Garcia, from transfer center, called with bed # 7920A admitting physician Dr. Edinson Johnson. PCS filled out. Patient will need all images on disc and medical record printed. Report to be called to [phone]. [address] [facility] [address]. Report to be given to CHAIM Hubbard.
[2022-02-02 18:27] LABS: Lyme Disease AB (IGG),IBL NO BANDS DETECTED; Lyme Disease AB (IGM), IBL NO BANDS DETECTED
[2022-02-02 18:37] LABS: HSV 1 DNA NOT DETECTED; HSV 2 DNA NOT DETECTED; HSV Source CEREBROSPINAL FLUID
--- NOTE | 2022-02-02 20:00 | PC.NURSE ---
[facility] states unable to transport patient tonight. Earliest transport availability will be tomorrow. [facility] contacted and transport request is out of their transport range. Dr. Cifuentes notified.
--- NOTE | 2022-02-02 20:20 | PC.NURSE ---
[facility] contacted and they are available to transport patient tonight. Report called to Russ Barrios at [facility].
[2022-02-02 21:14] LABS: Glucose Point of Care 120 mg/dL (70-110)
--- NOTE | 2022-02-02 21:28 | P.TS_ITS ---
Transfer Summary Providers Date of Admission: 01/23/22 17:54 Date of Discharge/Transfer: 02/02/22 Attending Provider at Admission: Dayne Woodward Attending Provider at Transfer: Monica Leigh MD Consults: Alessandra Oshea MD/ Neurology Primary Care Provider: RELL Godoy Transfer Plans: Anticipated date of transfer: 02/02/22 . Receiving Facility: [facility] . Receiving Provider: Dr. Johnson Hospitalist . Diagnoses at Discharge Discharge Diagnosis (1) Fever: Status: Acute (2) Acute encephalopathy: Status: Acute (3) Feeding difficulty: Status: Acute (4) Acute UTI: Status: Inactive (5) Uterine mass: Status: Acute (6) Abnormal uterine bleeding (AUB): Status: Inactive (7) Retroperitoneal lymphadenopathy: Status: Acute (8) Lung nodules: Status: Acute Reason for Visit Reason for Visit weakness, cant form words Hospital Course Hospital Course 71 year old lady with PMH hypothyroidism, abnormal uterine bleeding starting November 2021, initially came to the emergency department on 01/20 with a fever for a day and a headache. Her temperature was 101.6 she was mildly nauseated.? Her white blood cell count was not elevated and her CBC was normal.?? She was positive for nitrates and thought to have a UTI and was discharged on Cipro.? Her SARS-CoV-2 antigen was negative. Urine cx with superficial debbi. She returned 01/22/2022 with continued fever and increasing confusion.? She was having trouble tracking and some mild confusion off and on.?She was admitted in view of what appeared to be metabolic encephalopathy from UTI and started on treatment with Imipenem and Vancomycin. On 01/24 her fever curve worsened, spiked to 103 with no new symptoms.?WBC count was now at 16K, previously being normal . By the next morning she was hallucinating, complaining about bodies in the trash bin and that she was being poisoned by staff.? On 01/27 she told her son that she thought his face was melting and she was frightened when she looked down at her thigh because she thought it was bleeding.? She was still walking independently.? CT Abd/pelvis on 01/22 showed a uterine mass and thickening of the endometrium. She eventually underwent hysteroscopy which revealed large endometrial polyp and a left sided vaginal mass in the skenes area. 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 Final path is awaited. Due to persisting fever and worsening mentation, additional w/up was initiated, summarized in detail below. She underwent CT chest on 01/27 which revealed multiple B/L pulmonary nodules concerning for metastatic disease. No consolidation. On 01/28 her temperature was 100.5 maximum but she was more confused and started seeing visual hallucinations.? She was more somnolent.? Underwent LP this day, results below. Since then her mental status has continued to decline, she has been increasingly somnolent, has been predominantly non verbal, though intermittently says few words to family such as yes , no , that sounds good , help me .?She exhibits echolalia and repetitive hand gestures. She can no longer sustain passive elevation of her extremities. MRI of the brain, CT and CTA head and neck have been normal. Pertinent results as follows: (1) Fever: ?fever x 10 days duration at presentation,currently afberile since evening of 01/28 ? ? (2) Acute encephalopathy: Patient continues to have persisting profound encephalopathy without any meaningful improvement in mental status. With acute encephalopathy and fever, concern for meningoencephalitis for which LP performed on 01/28 (of note patient on imipenem,vancomycin since 01/23) Cell count 125, predominant mononuclear infiltrate , negative gram stain, multiple WBC noted. Cx negative. Glu 59 (serum 123, ratio 47%). Protein WNL. negative crytococcus Ag. negative bacterial Ag. Differentials were broad including partially treated bacterial meningitis, viral meningitis, neuroborreliosis, less likely neurosyphilis (lack of antecedednt risk factors, acute presentation over 10 days) or malignancy vs paraneoplastic encephalitis. Spot EEG with mild slowing, no epileptic activity noted. Normal MRI, CTA and CT head exams Neurology was consulted Based on suspicion for paraneoplastic/ limbic encephalitis,started on presumptive high-dose steroids 1 g of Solu-Medrol per day on 01/29.? There was no significant improvement in her mental status after 3 days of high-dose steroids.? Currently day 2 of IVIG at a dose of 0.4 g/kg/day for a total of 5 days.Confirmed with family that IVIG infusion is compatible with her known JW wishes and beliefs. Pertinent negative infectious w/up as follows: CSF Cell count 125, predominant mononuclear infiltrate(100%) , negative gram stain, multiple WBC noted.?Cx negative thus far.?Glu 59. Protein WNL. negative crytococcus Ag. negative bacterial Ag. pending sent out bacterial PCR multiplex panel in CSF. CSF lyme AB pending, presumptively started on doxycycline 100mg iv q12h for possible tick borne encephalitis. serum tick panel with negative Lyme screen,??ehrlichia and rickettsia serology Pending HSV/VZV DNA. No h/o recurrent cold sores or recent herpetic rash. No h/o shingles. Patient not immunocompromised, less likely to be viral encephalitis from EBV,CMV,YUKI or HHV. Cytology from CSF with rare mononuclear cells, no malignancy identified CXR with atelactasis, CT chest with?Multifocal pulmonary nodules throughout both lung [place] measuring up to 6.1 mm, concerning for diffuse metastatic disease. negative? resp viral panel, tick panel, pending [place] DFA ?CMV serology negative,negative monoscreen negative urine legionella AG, had received cipro prior to admission, low suspicion for legionnaire's. No h/o animal bites or scratches, no h/o rash no h/o bird exposure, no exotic pets, no h/o consumption of unpasteurized products. Less likely Listeria given she has defervesced, WBC returned to normal without targeted treatment, cx negative. COVID-[address] of the head unremarkable. MRI without acute intracranial pathology. CTA head and neck negative Urine culture was repeated.? So far without growth. Blood cultures so far negative. Fungal w/up incl coccidiodes ab, histoplasma urine ag , blastomyces Ab negative. low suspicion for MTB given lack of antecedent history or risk factors. H/o international travel except for cruise to [place] several years ago. No healthcare exposure. AFB smear N/A. Unable to add West Nile encephalitis AB as inadequate specimen Other work up: Patient with CT chest supicious for diffuse metastatic disease ??primary being vaginal vs endometrial malignancy. Underwent biopsy with ONLINE ADVERTISING MANAGER for vaginal and endometrial masses on 01/29, prelim pathology appears to be squamous cell carcinoma per discussion with pathologist.? Final report is still pending. If truly squamous cell carcinoma, somewhat odd pattern with vaginal and endometrial lesions without contiguous cervical involvement.? Additionally with metastatic lesions to the chest sparing bulk of the abdomen appears to be inconsistent.? Patient may need further evaluation for the lung nodules with biopsy.? We are unable to offer a minimally invasive biopsy technique at this time and will seek to transfer her to a higher center for further diagnostic testing in this regard. Overall no one certain unifying diagnosis is currently ascertained for her mental status changes, pulmonary nodules and noted ONLINE ADVERTISING MANAGER malignancy.These may be separate processes or technical service representative of paraneoplatic syndrome.? She is still encephalopathic in spite of extensive work up within our capabilities at [facility]. We do not have the capability of continuous video EEG monitoring at [facility].?Neurology services are not production stage manager starting this weekend. Given this, will seek to transfer care to higher center. Family is agreeable and would prefer a bloodless hospital.? She has been aaccepted at [facility] hospitalist service and transfer is initiated. We have been informed that ground transport services are not available tonight due to lack of staff and it is not known when patient may be able to be transported by ground. Air ambulance services have therefore been requested. Treatment history: s/p imipenem, vancomycin (01/23-01/29), ceftriaxone 2g iv q12h (01/29-02/01)- dicontinued abx as had overall 10 days empiric course with continued worsening mentation. Unlikely to be bacterial cause not adequately covered with this regimen. Doxycycline 100mg iv q12h (01/28-)- will d/c after 7 day presumptive course- no significant improvement noted till date except being afebrile.? May consider presumptive acyclovir course if no significant change in mentation. No evidence of viral or fungal meningitis at this time. Pending studies as noted above. For echolalaia, episodes of intermittent agitation she is on seroquel 25mg BID. Holding seroquel earlier this week did not improve mentation. (3) Feeding difficulty: S/p PEG placement 02/02 due to poor po intake, unable to meet caloric needs. PEG feeds to start 02/03. ? (4) Uterine mass: Findings on ultrasound with endometrial thickness 4.2 cm concerning for possible malignancy vs fibroid. s/p endometrial biopsy 01/29. 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 (5)Hypothyroidism: TSH currently in range at 0.49 All radiology images pushed to [facility] cloud fire observer Physical Exam Narrative: refer to my progress note from today Urinary Catheter Management: Marie: Cath Placed During This Visit: yes, but has since been removed by the nurse Reason for Continuing Indwelling Catheter: Acute Urinary Retention or Obstruction Urinary Catheter Date of Insertion: 01/31/22 Urinary Catheter Time of Insertion: 23:33 Date Urinary Catheter Removed: 01/31/22 Time Urinary Catheter Discontinued: 12:05 TS Data Studies Completed and Pending Pending at discharge Category Date Time Status EEG electroencephalogram Routine Exams 01/29/22 22:05 Ordered CMP [Comprehensive Metabolic Panel] AM LABS Lab 02/03/22 04:00 Ordered Coccidioides AB CF Serum Routine Lab 01/27/22 19:39 Results Complete Blood Count w/Auto AM LABS Lab 02/03/22 04:00 Ordered Cryoglobulins Qualitative Routine Lab 01/30/22 14:10 Received Cryptococcal Antigen w/ Reflex Routine Lab 01/27/22 19:39 Results Francisella Tularensis DA Routine Lab 02/01/22 11:54 Received Fungitell Glucan Assay (Blood) Routine Lab 01/27/22 19:39 Results Histoplasma Quantitative AG Routine Lab 01/28/22 11:05 Received Miscellaneous Test Routine Lab 01/29/22 14:35 Received Imperial Enceph.Virus IFA CSF Routine Lab 01/28/22 15:42 Received Tick Panel Routine Lab 01/28/22 13:40 Results West Nile Virus AB Panel,CSF Routine Lab 02/01/22 16:21 Ordered Pathology: Surgical [PTH] Routine Pth 01/29/22 07:53 Received Labs from last 24 hours 02/02/22 02/02/22 01/30/22 21:11 09:30 14:10 POC Glucose 120 H CSF Lyme IgG (Immblot) CSF Lyme IgM (Immblot) RSV Nasal Swab RSV Nasal Swab Int Cntl Anti-ds DNA IgG (Crith) Negative Adenovirus (PCR) Lyme IgG Bands Present Lyme IgM Bands Present E. chaffeensis IgG Ab E. chaffeensis IgM Ab E. chaffeensis Interp E. chaffeensis Comment Herpes Simplex Source U Histop Galact Ag Qnt Human Metapneumovir PCR Influenza A (RT-PCR) Influenza A (H1) PCR Influenza A (H3) PCR Influenza B (RT-PCR) Parainfluenzae Type 1 Parainfluenzae Type 2 Parainfluenzae Type 3 RSV Ab Comment Rhinovirus (PCR) SARS-CoV-2 Ag (Rapid) Negative HSV 1 DNA HSV 2 DNA 01/29/22 01/29/22 01/28/22 17:49 11:05 15:42 POC Glucose CSF Lyme IgG (Immblot) No bands detected CSF Lyme IgM (Immblot) No bands detected RSV Nasal Swab Not detected RSV Nasal Swab Int Cntl Not detected Anti-ds DNA IgG (Crith) Adenovirus (PCR) Not detected Lyme IgG Bands Present Not Reportable Lyme IgM Bands Present Not Reportable E. chaffeensis IgG Ab E. chaffeensis IgM Ab E. chaffeensis Interp E. chaffeensis Comment Herpes Simplex Source U Histop Galact Ag Qnt <0.2 Human Metapneumovir PCR Not detected Influenza A (RT-PCR) Not detected Influenza A (H1) PCR Not detected Influenza A (H3) PCR Not detected Influenza B (RT-PCR) Not detected Parainfluenzae Type 1 Not detected Parainfluenzae Type 2 Not detected Parainfluenzae Type 3 Not detected RSV Ab Comment see note Rhinovirus (PCR) Not detected SARS-CoV-2 Ag (Rapid) HSV 1 DNA HSV 2 DNA 01/28/22 01/28/22 15:42 13:40 POC Glucose CSF Lyme IgG (Immblot) CSF Lyme IgM (Immblot) RSV Nasal Swab RSV Nasal Swab Int Cntl Anti-ds DNA IgG (Crith) Adenovirus (PCR) Lyme IgG Bands Present Lyme IgM Bands Present E. chaffeensis IgG Ab <1:64 E. chaffeensis IgM Ab <1:20 E. chaffeensis Interp See note E. chaffeensis Comment Not Reportable Herpes Simplex Source Cerebrospinal fluid U Histop Galact Ag Qnt Human Metapneumovir PCR Influenza A (RT-PCR) Influenza A (H1) PCR Influenza A (H3) PCR Influenza B (RT-PCR) Parainfluenzae Type 1 Parainfluenzae Type 2 Parainfluenzae Type 3 RSV Ab Comment Rhinovirus (PCR) SARS-CoV-2 Ag (Rapid) HSV 1 DNA Not detected HSV 2 DNA Not detected Completed Studies During Hospitalization Category Date Time Status CT chest wo con [id number] Routine Cat Scan 01/28/22 12:[address] head wo con* [id number] Routine Cat Scan 01/25/22 16:[address] kidney stone [id number] Stat Cat Scan 01/22/22 18:06 Completed CTA head neck [CT angio headneck* [id number]] Routine Cat Scan 01/30/22 11:42 Completed CXRP [XR chest 1V portable [id number]] Routine Exams 01/28/22 12:52 Completed FL guided lumbarpunc dx* [id number] Routine Exams 01/28/22 12:52 Completed MR head wo/w con [id number] Stat MRI 01/29/22 10:27 Completed US gall bladder [id number] Routine Ultrasound 01/26/22 18:41 Completed Laboratory Last Values WBC 10.5 10^3/uL (4.0-10.0) H 02/01/22 11:54 Corrected WBC Cancelled 01/29/22 09:48 RBC 3.74 10^6/uL (4.1-5.3) L 02/01/22 11:54 Hgb 11.0 g/dL (11.5-15.3) L 02/01/22 11:54 Hct 33.4 % (37.0-47.0) L 02/01/22 11:54 MCV 89.3 fl (81-99) 02/01/22 11:54 MCH 29.4 pg (28.0-34.0) 02/01/22 11:54 MCHC 32.9 g/dL (30.0-36.0) 02/01/22 11:54 RDW 13.3 % (12.1-15.1) 02/01/22 11:54 Plt Count 180 10^3/cmm (130-400) 02/01/22 11:54 MPV 11.6 fL (7.4-10.4) H 02/01/22 11:54 Gran % Cancelled 01/29/22 09:48 Neut % (Auto) 74.6 % 02/01/22 11:54 Lymph % (Auto) 19.5 % 02/01/22 11:54 [place] % (Auto) 4.9 % 02/01/22 11:54 Eos % (Auto) 0.1 % 02/01/22 11:54 Baso % (Auto) 0.1 % 02/01/22 11:54 Neut # (Auto) 7.84 10^3/uL (1.8-7.7) H 02/01/22 11:54 Lymph # (Auto) 2.1 10^3/uL (0.8-4.8) 02/01/22 11:54 [place] # (Auto) 0.5 10^3/uL (0.2-0.9) 02/01/22 11:54 Eos # (Auto) 0.0 10^3/uL (0.0-0.8) 02/01/22 11:54 Baso # (Auto) 0.0 10^3/uL (0.0-0.1) 02/01/22 11:54 Absolute Gran (auto) Cancelled 01/29/22 09:48 Nucleated RBC % (auto) 0 % 02/01/22 11:54 Nucleated RBCs # 0.0 /100WBC 02/01/22 11:54 ESR 15 mm/hr (0-15) 01/30/22 05:59 Sodium 141 mmol/L (136-145) 02/01/22 11:54 Potassium 3.3 mmol/L (3.5-5.1) L 02/01/22 11:54 Chloride 104 mmol/L (98-107) 02/01/22 11:54 Carbon Dioxide 24 mmol/L (22-29) 02/01/22 11:54 Anion Gap 16.3 (5-19) 02/01/22 11:54 BUN 44 mg/dL (8-23) H 02/01/22 11:54 Creatinine 0.3 mg/dL (0.5-0.9) L 02/01/22 11:54 GFR Calculation Not Reportable 02/01/22 11:54 Glucose 154 mg/dL (65-115) H 02/01/22 11:54 POC Glucose 120 mg/dL (70-110) H 02/02/22 21:11 Calculated Osmolality 306 mOsm/kg (285-295) H 02/01/22 11:54 Calcium 8.5 mg/dL (8.5-10.5) 02/01/22 11:54 Magnesium 2.1 mg/dL (1.7-2.3) 01/23/22 05:49 Total Bilirubin 0.4 mg/dL (0.15-1.2) 02/01/22 11:54 AST 19 U/L (0-32) 02/01/22 11:54 ALT 24 U/L (0-33) 02/01/22 11:54 Alkaline Phosphatase 114 IU/L (35-105) H 02/01/22 11:54 Lactate Dehydrogenase 313 U/L (135-214) H 01/28/22 04:20 C-Reactive Protein 74.8 mg/L (0.0-4.9) H 01/30/22 05:59 Total Protein 5.4 g/dL (6.6-8.7) L 02/01/22 11:54 Albumin 3.2 g/dL (3.5-5.2) L 02/01/22 11:54 Globulin 2.2 g/dL (1.3-4.6) 02/01/22 11:54 Lipase 30 U/L (13-60) 01/22/22 13:41 Procalcitonin 0.12 ng/mL (0-0.5) 01/25/22 04:43 TSH 0.49 uIU/mL (0.27-4.20) 01/27/22 05:19 Urine Color Yellow (Yellow) 01/22/22 18:35 Urine Appearance Clear (CLEAR) 01/22/22 18:35 Urine pH 5 (5-7) 01/22/22 18:35 Ur Specific [place] 1.025 (1.005-1.030) 01/22/22 18:35 Urine Protein Neg (Negative) 01/22/22 18:35 Urine Glucose (UA) Norm (Normal) 01/22/22 18:35 Urine Ketones 2+ (Negative) H 01/22/22 18:35 Urine Blood 3+ (Negative) H 01/22/22 18:35 Urine Nitrate Negative (Negative) 01/22/22 18:35 Urine Bilirubin Neg (Negative) 01/22/22 18:35 Urine Urobilinogen Norm mg/dL (Negative) 01/22/22 18:35 Ur Leukocyte Esterase Negative (Negative) 01/22/22 18:35 Urine RBC 15-25 /hpf (0-2) H 01/22/22 18:35 Urine WBC 0-4 /hpf (0-5) H 01/22/22 18:35 Ur Squamous Epith Cells 0-4 /hpf (0-5) H 01/22/22 18:35 Amorphous Sediment Not Reportable 01/22/22 18:35 Urine Bacteria Trace /hpf (NONE) 01/22/22 18:35 Urine Mucus 3+ /hpf 01/22/22 18:35 CSF Appearance Clear (CLEAR) 01/28/22 15:43 CSF Color Colorless (COLORLESS) 01/28/22 15:43 CSF WBC 123 /uL (0-5) H 01/28/22 15:43 CSF RBC 0 10^3/uL (0-0) 01/28/22 15:43 CSF Mononuclear # Auto 0.123 10^3/uL (50-90) L 01/28/22 15:43 CSF Mononuclear WBCs % 100 % (50-90) H 01/28/22 15:43 CSF Polynuclear WBCs # 0.000 10^3/uL (0-10) 01/28/22 15:43 CSF Polynuclear WBCs % 0 % (0-10) 01/28/22 15:43 CSF Diff Comment Yes 01/28/22 15:43 CSF Glucose 59 mg/dL (40-70) 01/28/22 15:43 CSF Total Protein 29 mg/dL (15-45) 01/28/22 15:43 CSF Lyme IgG (Immblot) No bands detected 01/28/22 15:42 CSF Lyme IgM (Immblot) No bands detected 01/28/22 15:42 RSV Nasal Swab Not detected (Not Detected) 01/29/22 17:49 RSV Nasal Swab Int Cntl Not detected (Not Detected) 01/29/22 17:49 Vancomycin Trough < 4.0 ug/mL (10-15) L 01/27/22 07:45 Serum Immunofixation See note 01/30/22 14:10 Rheumatoid Factor 10.0 IU/mL (0-14) 01/30/22 14:10 LOIDA IFA Animal Tis Res Negative (NEGATIVE) 01/30/22 14:10 FLAVIO-1 Antibody <1.0 neg AI (<1.0 NEG) 01/30/22 14:10 SS-A Antibody <1.0 neg AI (<1.0 NEG) 01/30/22 14:10 SS-B Antibody <1.0 neg AI (<1.0 NEG) 01/30/22 14:10 Sm (Cr) Antibody <1.0 neg AI (<1.0 NEG) 01/30/22 14:10 SUPPLIES PACKER Antibody <1.0 neg AI (<1.0 NEG) 01/30/22 14:10 Scl-70 Antibody <1.0 neg AI (<1.0 NEG) 01/30/22 14:10 Anti-ds DNA IgG (Crith) Negative (NEGATIVE) 01/30/22 14:10 Centromere B Antibody <1.0 neg AI (<1.0 NEG) 01/30/22 14:10 Thyroid Peroxidase Ab <1 IU/mL (<9) 01/30/22 14:10 Complement C3c 147 mg/dL (83-193) 01/30/22 14:10 Complement C4c 35 mg/dL (15-57) 01/30/22 14:10 CH50 Classical Pathway >60 U/mL (31-60) H 01/30/22 14:10 Adenovirus (PCR) Not detected (Not Detected) 01/29/22 17:49 Blastomyces Ag Result None detected ng/mL 01/28/22 04:20 Blastomyces Ag Interp Negative 01/28/22 04:20 Lyme Ab (Western Blot) <0.90 index 01/28/22 13:40 Lyme IgG Bands Present Not Reportable 01/28/22 15:42 Lyme IgM Bands Present Not Reportable 01/28/22 15:42 Cryptococcus Source Serum 01/28/22 04:20 Cryptococcus Ag Screen Not detected (Not Detected) 01/28/22 04:20 CMV IgG Ab <0.60 U/mL 01/28/22 13:40 CMV IgM Ab <30.00 AU/mL 01/28/22 13:40 E. chaffeensis IgG Ab <1:64 01/28/22 13:40 E. chaffeensis IgM Ab <1:20 01/28/22 13:40 E. chaffeensis Interp See note 01/28/22 13:40 E. chaffeensis Comment Not Reportable 01/28/22 13:40 Herpes Simplex Source Cerebrospinal fluid 01/28/22 15:42 Monoscreen Negative (Negative) 01/28/22 04:20 U Histop Galact Ag Qnt <0.2 ng/mL 01/29/22 11:05 Human Metapneumovir PCR Not detected (Not Detected) 01/29/22 17:49 Influenza A (RT-PCR) Not detected (Not Detected) 01/29/22 17:49 Influenza A (H1) PCR Not detected (Not Detected) 01/29/22 17:49 Influenza A (H3) PCR Not detected (Not Detected) 01/29/22 17:49 Influenza B (RT-PCR) Not detected (Not Detected) 01/29/22 17:49 Parainfluenzae Type 1 Not detected (Not Detected) 01/29/22 17:49 Parainfluenzae Type 2 Not detected (Not Detected) 01/29/22 17:49 Parainfluenzae Type 3 Not detected (Not Detected) 01/29/22 17:49 A. galactomannan Ag EIA Not detected 01/28/22 04:20 A. galactomannan Ag Idx <0.50 01/28/22 04:20 RSV Ab Comment see note 01/29/22 17:49 Rhinovirus (PCR) Not detected (Not Detected) 01/29/22 17:49 SARS-CoV-2 RNA (RT-PCR) Not detected (NOT DETECTED) 01/24/22 20:13 SARS-CoV-2 Ag (Rapid) Negative (Negative) 02/02/22 09:30 Beta-(1,3)-D-Glucan <31 pg/mL 01/28/22 04:20 B-(1,3)-D-Glucan Intrp Negative 01/28/22 04:20 HSV 1 DNA Not detected 01/28/22 15:42 HSV 2 DNA Not detected 01/28/22 15:42 Radiology Impressions Abdomen/Pelvis CT 01/22/22 18:06 IMPRESSION: 1. Colonic diverticulosis without CT evidence of diverticulitis. 2. Previous distal colon resection with rectosigmoid anastomosis. 3. Prominent uterus containing partially calcified uterine fibroid or uterine mass measuring at least 7.2cm. 4. Retroperitoneal lymphadenopathy including 1.8 x 1.9 cm aortocaval lymph node. 5. Multiple bilateral noncalcified pulmonary nodules including 12 mm posterior right lower lobe nodule. Differential diagnosis includes inflammatory nodules or noncalcified granulomas versus metastatic disease. For patients at low risk (minimal or absent history of smoking and of other known risk factors), recommend CT Chest at 3-6 months, then consider CT Chest at 18-24 months. For patients at high risk (history of smoking or of other known risk factors), recommend CT Chest at 3-6 months, then CT Chest at 18-24 months (Reference: Joel). If patient has known history of cancer then Fleischner guidelines are not applicable. Follow-up per the patient's medical condition. COMMENTS: Consistent with the [place] [employer]'s Incidental Findings Committee white paper (J Am Elda Radiol 2018): Any incidental renal lesion less than 1 cm or classified as too small to characterize, or any incidental cystic renal lesion characterized as simple-appearing, is likely benign. No follow-up imaging is recommended for these lesions per consensus recommendations based on imaging criteria. REFERENCES: Joel Ko, et al. Guidelines for Management of Incidental Pulmonary Nodules Detected on CT Images: From the Fleischner Society 2017. Radiology. 2017;284(1):228-243. Head CT 01/25/22 16:52 Impression: Negative CT scan of the head Gallbladder Ultrasound 01/26/22 18:41 IMPRESSION: No acute sonographic findings. Chest X-Ray 01/28/22 12:52 IMPRESSION: 1. Mild cardiomegaly and pulmonary vascular congestion. 2. Trace left pleural effusion suspected. 3. Minimal bilateral hilar to lower lobe atelectasis versus minimal infiltrate. Lumbar Puncture Fluoroscopy 01/28/22 12:52 IMPRESSION: Uncomplicated lumbar puncture for CSF. CSF collected for analysis as requested. Chest CT 01/28/22 12:56 IMPRESSION: 1. Several prominent subcentimeter short axis mediastinal lymph nodes, nonspecific. 2. Multifocal pulmonary nodules throughout both lung [place] measuring up to 6.1 mm, concerning for diffuse metastatic disease. 3. Trace bilateral pleural effusions. Head MRI 01/29/22 10:27 IMPRESSION: 1. No evidence of restricted diffusion to suggest acute ischemia. 2. Mild small vessel changes with mild parenchymal volume loss. 3. No abnormal gadolinium enhancement. No evidence of enhancing intracranial metastatic disease. 4. No acute intracranial findings. Head/Neck CTA 01/30/22 11:42 IMPRESSION: No large vessel stenosis or occlusion. IMPRESSION: No stenosis or occlusion of the neck arteries. Multiple nodules in the visualized the upper lungs. Please refer to CT chest of the same date for details. REFERENCES: NASCET CRITERIA. The degree of internal carotid artery stenosis is based on NASCET criteria. Normal is no stenosis. Mild is less than 50% stenosis. Moderate is 50-69% stenosis. Severe is 70% to 99% stenosis. Total occlusion is no detectable patent lumen. Recent Clincial Data Last Vital Signs Temp 99.3 F 02/02/22 20:15 Pulse 74 02/02/22 20:15 Resp 16 02/02/22 20:15 BP 111/63 02/02/22 20:15 Pulse Ox 93 02/02/22 20:15 O2 Del Method 02/02/22 20:15 O2 Flow Rate 4 02/02/22 08:55 Vital Signs Temp Pulse Resp BP Pulse Ox O2 Del Method 02/02/22 20:15 99.3 F 74 16 111/63 93 Room Air 02/02/22 16:00 98.2 F 93 12 145/73 97 Room Air 02/02/22 11:34 97.4 F L 88 12 155/77 94 Room Air Intake & Output/Weight 01/31/22 02/01/22 02/02/22 02/03/22 06:59 06:59 06:59 06:59 Intake Total 1481.5 / 1481.5 1918 / 1918 339.5 / 339.5 100 / 100 Output Total 400 / 400 250 / 250 1125 / 1125 975 / 975 Balance 1081.5 / 1081.5 1668 / 1668 -785.5 / -785.5 -875 / -875 Vitals Last Vital Signs Temp 99.3 F 02/02/22 20:15 Pulse 74 02/02/22 20:15 Resp 16 02/02/22 20:15 BP 111/63 02/02/22 20:15 Pulse Ox 93 02/02/22 20:15 O2 Del Method 02/02/22 20:15 O2 Flow Rate 4 02/02/22 08:55 TS Medications Medications Acetaminophen (Acetaminophen 325 Mg Tablet) 650 mg PO Q6H PRN PRN Reason: Mild/Mod Pain Or Temp >/= 101 Last Admin: 02/02/22 17:43 Dose: 650 mg Acetaminophen (Acetaminophen 650 Mg Supp) 650 mg CA Q6H PRN PRN Reason: PAIN Last Admin: 01/31/22 22:57 Dose: 650 mg Alprazolam (Alprazolam 0.5 Mg Tablet) 0.5 mg PO BID PRN PRN Reason: anxiety Last Admin: 02/02/22 18:11 Dose: 0.5 mg Doxycycline Hyclate 100 mg/ (Dextrose) 100 mls @ 100 mls/hr IV Q12H [facility]; Protocol Last Admin: 02/02/22 18:10 Dose: 100 mls/hr Immune Globulin (Octagam 10%) 26 gm in 260 mls @ 0 mls/hr IV .Q0M ONE; Protocol Stop: 02/03/22 15:01 Immune Globulin (Octagam 10%) 26 gm in 260 mls @ 0 mls/hr IV .Q0M ONE; Protocol Stop: 02/04/22 15:01 Immune Globulin (Octagam 10%) 26 gm in 260 mls @ 0 mls/hr IV .Q0M ONE; Protocol Stop: 02/05/22 15:01 Sodium Chloride (Sodium Chloride 0.9%) 1,000 mls @ 30 mls/hr IV .Q24H [facility] Last Admin: 02/02/22 09:55 Dose: Not Given Metoprolol Tartrate (Metoprolol Tartrate 25 Mg Tablet) 12.5 mg PO BID@0900,2100 [facility] Last Admin: 02/02/22 02:02 Dose: Not Given Ondansetron HCl (Ondansetron 2 Mg/Ml Sdv 2 Ml) 4 mg IVP Q6H PRN PRN Reason: NAUSEA AND VOMITING Pantoprazole Sodium (Pantoprazole 40 Mg Sdv) 40 mg IVP Q12H [facility] Last Admin: 02/02/22 17:40 Dose: 40 mg Quetiapine Fumarate (Quetiapine 25 Mg Tablet) 25 mg PO BID [facility] Last Admin: 02/02/22 17:43 Dose: 25 mg Thyroid (Thyroid 60 Mg Tablet) 15 mg PO DAILY [facility] Last Admin: 02/01/22 13:12 Dose: 15 mg Trazodone HCl (Trazodone 50 Mg Tablet) 25 mg PO BEDTIME [facility] Last Admin: 02/02/22 02:03 Dose: Not Given Discontinued Medications Acetaminophen (Acetaminophen 500 Mg Tablet) 1,000 mg PO ONCE ONE Stop: 01/22/22 18:47 Last Admin: 01/22/22 19:04 Dose: 1,000 mg Alprazolam (Alprazolam 0.5 Mg Tablet) 1 mg PO ONCE ONE Stop: 02/01/22 12:31 Last Admin: 02/01/22 13:12 Dose: 1 mg Benzocaine (Cetylpyridinium Lozenge) 1 each MUCOUS MEM ONCE ONE Stop: 01/29/22 07:19 Last Admin: 01/29/22 09:00 Dose: Not Given Dexamethasone (Dexamethasone 4 Mg/Ml Inj) 4 mg IVP Q5M PRN PRN Reason: Nausea unrelieved by Reglan Stop: 01/30/22 07:18 Dexamethasone (Dexamethasone 4 Mg/Ml Inj) Confirm Administered Dose 4 mg .ROUTE .[employer] Meets [employer]-MED ONE Stop: 01/29/22 07:27 Diphenhydramine HCl (Diphenhydramine 50 Mg/Ml Sdv 1ml) 12.5 mg IVP ONCE PRN PRN Reason: NAUSEA Doxycycline Monohydrate (Doxycycline 100 Mg Tablet) 100 mg PO BID [facility]; Protocol Famotidine (Famotidine 20 Mg/2 Ml Inj) 20 mg IVP ONCE PRN PRN Reason: HEARTBURN Fentanyl (Fentanyl 50 Mcg/Ml Inj 2ml) 50 mcg IVP ONCE ONE Stop: 01/22/22 18:47 Last Admin: 01/22/22 19:03 Dose: 50 mcg Fentanyl (Fentanyl 50 Mcg/Ml Inj 2ml) 50 mcg IVP ONCE ONE Stop: 01/22/22 22:34 Last Admin: 01/22/22 22:39 Dose: 50 mcg Fentanyl (Fentanyl 50 Mcg/Ml Inj 2ml) Confirm Administered Dose 0 mcg .ROUTE .[employer]-MED ONE Stop: 01/29/22 06:33 Fentanyl (Fentanyl 50 Mcg/Ml Inj 2ml) 50 mcg IVP Q10M PRN PRN Reason: Preop Pain Fentanyl (Fentanyl 50 Mcg/Ml Inj 2ml) 100 mcg IVP ONCE PRN PRN Reason: Per anesthesia for block Fentanyl (Fentanyl 50 Mcg/Ml Inj 2ml) Confirm Administered Dose 100 mcg .ROUTE .[employer]-MED ONE Stop: 01/29/22 06:47 Fentanyl (Fentanyl 50 Mcg/Ml Inj 2ml) 50 mcg IVP Q5M PRN PRN Reason: Pain level 6-10 PACU Phase I Stop: 01/30/22 07:18 Haloperidol Lactate (Haloperidol Inj 5 Mg/Ml Inj 1 Ml) 1 mg IM ONCE ONE Stop: 01/25/22 10:08 Last Admin: 01/25/22 10:40 Dose: 1 mg Hydromorphone HCl (Hydromorphone 1 Mg/Ml Inj 1 Ml) 0.25 mg IVP Q10M PRN PRN Reason: Pain level 4-6 PACU Phase I Stop: 01/30/22 07:18 Hydromorphone HCl (Hydromorphone 1 Mg/Ml Inj 1 Ml) 0.5 mg IVP Q10M PRN PRN Reason: Pain level 7-10 PACU Phase I Stop: 01/30/22 07:18 Ceftriaxone Sodium 1,000 mg/ (Sodium Chloride) 50 mls @ 100 mls/hr IV ONCE ONE; Protocol Stop: 01/22/22 17:34 Last Admin: 01/22/22 19:00 Dose: 100 mls/hr Imipenem/Cilastatin Sodium 500 (mg/ Sodium Chloride) 100 mls @ 200 mls/hr IV ONCE ONE Stop: 01/22/22 18:26 Last Admin: 01/22/22 19:02 Dose: 200 mls/hr Potassium Chloride/Dextrose/Sod Cl (D5-Ns 0.45% + Kcl 20 Meq) 20 meq in 1,000 mls @ 30 mls/hr IV .Q24H [facility] Last Infusion: 01/27/22 10:30 Dose: 0 mls/hr Sodium Chloride (Sodium Chloride 0.9%) 1,000 mls @ 999 mls/hr IV .Q1H1M ONE Stop: 01/23/22 00:08 Last Infusion: 01/23/22 00:35 Dose: Infused Imipenem/Cilastatin Sodium 500 (mg/ Sodium Chloride) 100 mls @ 200 mls/hr IV Q6H [facility]; Protocol Last Admin: 01/24/22 06:31 Dose: 200 mls/hr Imipenem/Cilastatin Sodium 500 (mg/ Dextrose) 100 mls @ 200 mls/hr IV Q6H [facility]; Protocol Last Infusion: 01/29/22 14:05 Dose: Infused Vancomycin HCl 1,000 mg/ (Sodium Chloride) 250 mls @ 250 mls/hr IV Q24H [facility] Last Infusion: 01/26/22 10:32 Dose: Infused Vancomycin HCl 1,000 mg/ (Sodium Chloride) 250 mls @ 250 mls/hr IV Q12H [facility] Last Infusion: 01/29/22 10:18 Dose: Infused Lactated Ringer's (Lactated Ringers) 1,000 mls @ 30 mls/hr IV .Q24H [facility] Last Admin: 02/01/22 22:01 Dose: Not Given Doxycycline Hyclate 100 mg/ (Sodium Chloride) 100 mls @ 100 mls/hr IV Q12H [facility]; Protocol Last Infusion: 01/29/22 08:59 Dose: Infused Sodium Chloride (Sodium Chloride 0.9%) 1,000 mls @ 30 mls/hr IV .Q24H [facility] Stop: 01/30/22 06:44 Last Infusion: 01/29/22 15:22 Dose: Infused Sodium Chloride (Sodium Chloride 0.9%) Confirm Administered Dose 1,000 mls @ as directed .ROUTE .STK-MED ONE Stop: 01/29/22 06:50 Sodium Chloride (Sodium Chloride 0.9%) 500 mls @ 999 mls/hr IV .Q31M PRN PRN Reason: HYPOTENSION Ceftriaxone Sodium 2,000 mg/ (Dextrose) 50 mls @ 100 mls/hr IV Q12H [facility]; Protocol Last Admin: 02/01/22 22:02 Dose: 100 mls/hr Methylprednisolone Sodium Succinate 1,000 mg/ Sodium Chloride 258 mls @ 258 mls/hr IV Q24H [facility] Stop: 02/02/22 21:59 Last Infusion: 01/31/22 23:38 Dose: Infused Immune Globulin (Octagam 10%) 26 gm in 260 mls @ 0 mls/hr IV .Q0M ONE; Protocol Stop: 02/01/22 15:01 Last Titration: 02/01/22 17:10 Dose: 2 mg/kg/min, 77.95 mls/hr Immune Globulin (Octagam 10%) 26 gm in 260 mls @ 0 mls/hr IV .Q0M ONE; Protocol Stop: 02/02/22 15:01 Last Admin: 02/02/22 14:50 Dose: 1 mg/kg/min, 38.97 mls/hr Sodium Chloride (Sodium Chloride 0.9%) 1,000 mls @ 30 mls/hr IV .Q24H [facility] Stop: 02/03/22 07:44 Last Infusion: 02/02/22 08:55 Dose: Infused Iohexol (Iohexol 350 Mg/Ml 100 Ml Btl) 0 ml IV ONCE ONE Stop: 01/30/22 16:36 Last Admin: 01/30/22 16:36 Dose: 95 ml Ipratropium [place] (Ipratropium 0.5 Mg/2.5 Ml Neb) 0.5 mg INHALATION ONCE PRN PRN Reason: WHEEZING Levalbuterol HCl (Levalbuterol 0.63 Mg/3 Ml Neb) 0.63 mg INHALATION ONCE PRN PRN Reason: WHEEZING Lidocaine HCl (Lidocaine 2% Inj 20 Ml) Confirm Administered Dose 20 ml .ROUTE .STK-MED ONE Stop: 01/29/22 06:31 Lidocaine HCl (Lidocaine 1% Inj 20 Ml) 0.1 ml INTRADERMA PRN PRN PRN Reason: anesthetic prior to IV start Stop: 01/30/22 06:34 Lidocaine HCl (Lidocaine 1% Inj 20 Ml) 7.5 ml .ROUTE .STK-MED ONE Stop: 01/29/22 08:14 Lidocaine HCl (Lidocaine 2% Viscous 15 Ml Udc) 1 ml TOPICAL PRN PRN PRN Reason: Anesthetic prior to IV start Lidocaine HCl (Lidocaine 1% Inj 20 Ml) 0.1 ml INTRADERMA PRN PRN PRN Reason: anesthetic prior to IV start Stop: 02/03/22 07:40 Lidocaine HCl (Lidocaine 1% Inj 20 Ml) 0.1 ml INTRADERMA ONCE ONE Stop: 02/02/22 07:43 Last Admin: 02/02/22 09:55 Dose: Not Given Meperidine HCl (Meperidine 50 Mg/Ml Inj) 12.5 mg IVP Q5M PRN PRN Reason: Shivering PACU Phase I Stop: 01/30/22 07:18 Metoclopramide HCl (Metoclopramide 5 Mg/Ml Sdv 2 Ml) 10 mg IVP ONCE PRN PRN Reason: N/V if zofran ineffective Metoclopramide HCl (Metoclopramide 5 Mg/Ml Sdv 2 Ml) 10 mg IVP Q5M PRN PRN Reason: Nausea unrelieved by Zofran Stop: 01/30/22 07:18 Metoprolol Tartrate (Metoprolol Tartrate 1 Mg/1 Ml Sdv 5 Ml) 2.5 mg IVP ONCE ONE Stop: 01/30/22 12:47 Last Admin: 01/30/22 13:17 Dose: 2.5 mg Midazolam HCl (Midazolam 1 Mg/Ml Inj 2 Ml) 2 mg IVP Q5M PRN PRN Reason: Preop Anxiety Morphine Sulfate (Morphine 4 Mg/Ml Sdv 1 Ml) 0 mg IVP Q5M PRN PRN Reason: Breakthrough Pain PACU PhaseII Ondansetron HCl (Ondansetron 2 Mg/Ml Sdv 2 Ml) 4 mg IVP Q5M PRN PRN Reason: NAUSEA AND VOMITING Ondansetron HCl (Ondansetron 2 Mg/Ml Sdv 2 Ml) 4 mg IVP Q15M PRN PRN Reason: Nausea/Vomiting PACU PHASE II Ondansetron HCl (Ondansetron 2 Mg/Ml Sdv 2 Ml) 4 mg IVP Q5M PRN PRN Reason: Nausea PACU Phase I Stop: 01/30/22 07:18 Ondansetron HCl (Ondansetron 2 Mg/Ml Sdv 2 Ml) Confirm Administered Dose 4 mg .ROUTE .STK-MED ONE Stop: 01/29/22 07:27 Ondansetron HCl (Ondansetron 2 Mg/Ml Sdv 2 Ml) 4 mg IVP Q15M PRN PRN Reason: Nausea/Vomiting PACU PHASE II Phenylephrine HCl (Phenylephrine 10 Mg/Ml Sdv 1 Ml) Confirm Administered Dose 10 mg .ROUTE .STK-MED ONE Stop: 01/29/22 06:29 Phenylephrine HCl (Phenylephrine 10 Mg/Ml Sdv 1 Ml) Confirm Administered Dose 10 mg .ROUTE .STK-MED ONE Stop: 01/29/22 07:13 Potassium Chloride (Potassium Chloride Er 20 Meq Tablet) 20 meq PO ONCE ONE Stop: 01/22/22 23:09 Last Admin: 01/22/22 23:34 Dose: 20 meq Propofol (Propofol 10 Mg/Ml Sdv 20 Ml) Confirm Administered Dose 200 mg .ROUTE .STK-MED ONE Stop: 01/29/22 06:31 Propofol (Propofol 10 Mg/Ml Sdv 20 Ml) Confirm Administered Dose 200 mg .ROUTE .STK-MED ONE Stop: 02/02/22 07:35 Scopolamine (Scopolamine 1.5 Patch) 1 patch TRANSDERMA ONCE PRN PRN Reason: Nausea/ Vomiting Prophylaxis Vancomycin HCl (Vancomycin 1,000 Mg Sdv) Confirm Administered Dose 1,000 mg .ROUTE .STK-MED ONE Stop: 01/27/22 20:37 Last Admin: 08/07/22 21:04 Dose: Not Given Allergies Penicillins Allergy (Verified 02/01/22 16:04) Rash Whole blood Adverse Reaction (Unknown, Uncoded 02/01/22 16:04) Unknown [facility], does not accept whole blood. Some blood products may be acceptable. Home Medications cholecalciferol (vitamin D3) 25 mcg (1,000 unit) tablet (Vitamin D3) 5,000 unit PO DAILY 09/07/19 [History Confirmed 01/22/22] thyroid (pork) 15 mg tablet ([place] Thyroid) 15 mg PO DAILY #90 tabs 10/29/21 [Rx Confirmed 01/22/22] ciprofloxacin HCl 250 mg tablet (Cipro) 250 mg PO BID 5 days #10 tabs 01/20/22 [Rx Confirmed 01/22/22] Whole Food Multi Vitamin Liq. 30 ml PO DAILY 01/22/22 [History Confirmed 01/22/22] Discharge Plan Discharge Patient Disposition: Xfer Other Condition: Stable Prescriptions: No Action cholecalciferol (vitamin D3) [Vitamin D3] 25 mcg (1,000 unit) tablet 5,000 unit PO DAILY thyroid (pork) [[place] Thyroid] 15 mg tablet 15 mg PO DAILY Qty: 90 1RF ciprofloxacin HCl [Cipro] 250 mg tablet 250 mg PO BID 5 Days Qty: 10 0RF Whole Food Multi Vitamin Liq. 30 ml PO DAILY Discharge Orders: Transfer Out of Facility (Order); Ordered 02/02/22 Ordered By: Monica Leigh Referrals: Pavel Gupta, [facility] [Primary Care Provider] - Patient Instructions: GI Discharge Instructions, Opioid Safety Transfer Attestations Time Spent in Transfer Care: greater than 30 min Quality Metrics Clinical Quality Measures [ No reported AMI, CVA or VTE this stay] Coding Level of Care Code Acute [employer] Program [employer] for [employer] Diagnoses Fever R50.9 Acute encephalopathy G93.40 Feeding difficulty R63.30 Acute UTI N39.0 Uterine mass N85.8 Abnormal uterine bleeding (AUB) N93.9 Retroperitoneal lymphadenopathy R59.0 Lung nodules R91.8
--- NOTE | 2022-02-02 21:52 | PC.NURSE ---
Patient transported to [facility] with [facility]. Patient belongings with family.
[2022-02-04 19:07] LABS: Histoplasma Antigen (Quant) NONE DETECTED; Histoplasma Antigen Interpreta NEGATIVE; Histoplasma Antigen Specimen URINE
[2022-02-05 10:37] LABS: Francisella Tularensis DA <1:20 titer
[2022-02-05 14:38] LABS: Cryoglobulins Qualitative None Detected (None Detected)
[2022-02-05 17:53] LABS: St. Louis Enceph.Virus IGG CSF <1:1; St. Louis Enceph.Virus IGM CSF <1:1
[2022-02-06 19:09] LABS: Coccidioides AB CF Serum <1:2
[2022-02-20 18:38] LABS: RMSF IGG NOT DETECTED; RMSF IGM NOT DETECTED
== END 2022-02-02 21:12 | disposition short-term general hospital (02) | DRG 987 ==
LOC: ER 22:01 → MEDSURG 22:49
PROVIDERS: Emergency Medicine; Obstetrics & Gynecology; Specialist; Surgery; Admitting Provider Internal Medicine; Emergency Provider Family Medicine; PCP Nurse Practitioner; Visit Provider Student in an Organized Health Care Education/Training Program
PROC: 0UDB8ZZ Extraction of Endometrium, Via Natural or Artificial Opening Endoscopic (ICD-10-PCS; CPT 58558; principal; 2022-01-29 07:00)
PROC: 0UDB8ZX Extraction of Endometrium, Via Natural or Artificial Opening Endoscopic, Diagnostic (ICD-10-PCS; CPT 58120; 2022-01-29 07:00)
PROC: 0DJ08ZZ Inspection of Upper Intestinal Tract, Via Natural or Artificial Opening Endoscopic (ICD-10-PCS; CPT 43235; principal; 2022-02-02 08:00)
PROC: 0DH63UZ Insertion of Feeding Device into Stomach, Percutaneous Approach (ICD-10-PCS; CPT 43246; 2022-02-02 08:00)
DX: G04.81 Other encephalitis and encephalomyelitis (principal); G93.41 Metabolic encephalopathy; N39.0 Urinary tract infection, site not specified; E03.9 Hypothyroidism, unspecified; D25.9 Leiomyoma of uterus, unspecified; Z90.49 Acquired absence of other specified parts of digestive tract; N93.9 Abnormal uterine and vaginal bleeding, unspecified; R59.0 Localized enlarged lymph nodes; R91.8 Other nonspecific abnormal finding of lung field; E87.6 Hypokalemia; N84.0 Polyp of corpus uteri; R63.30 Feeding difficulties, unspecified; R13.10 Dysphagia, unspecified
CPT/HCPCS: 36415; 36416; 43246; 51702; 62328; 70450; 70496; 70498; 70553; 71045; 71250; 74176; 76705; 80053; 80202; 80503; 81001; 82595; 82945; 82962; 83605; 83615; 83690; 83735; 84145; 84157; 84443; 85025; 85651; 86000; 86140; 86160; 86162; 86235; 86255; 86308; 86334; 86376; 86403; 86431; 86617; 86618; 86635; 86653; 86666; 86757; 87040; 87070; 87075; 87086; 87205; 87305; 87327; 87385; 87426; 87449; 87530; 87633; 87635; 88108; 88305; 88342; 89050; 92507; 92523; 92526; 92610; 96365; 96367; 96372; 96375; 99284; 99285; A9577; C9113; G0378; J0696; J0743; J1100; J1568; J1630; J2370; J2405; J2704; J2930; J3010; J3370; J3490; J7030; J7050; Q9967